=== PATIENT | male | born 1950 | race Caucasian/White ===

== ENCOUNTER 2017-01-11 17:16 | Inpatient (IN) | payer OTHER, MEDICARE ==
[~2017-01-11] VITALS: Ht 177.8 cm; Wt 81.6 kg
[~2017-01-11 17:16] MED LIST: ASPIRIN325 MG PO; BUSPAR10 MG PO; EFFEXOR XR150 MG PO; EFFIENT10 MG PO; FLOMAX0.4 MG PO; PRAVACHOL20 MG PO; PROTONIX20 MG PO; RANEXA500 MG PO
--- NOTE | 2017-01-11 17:33 | NUR ---
TRANSFER FROM ER BY W/C. MARCOSINTED TO ROOM. CALL LIGHT IN REACH. WILL CONT. PLAN OF CARE.
[2017-01-11 17:50] VITALS: BP 101/66; BMI 23.0
[2017-01-11] MEDS ORDERED: FOLIC ACID1 MG PO (17:59)
[2017-01-11] MEDS ORDERED: KLOR-CON 1010 MEQ PO (17:59)
[2017-01-11] MEDS ORDERED: VITAMIN B-121000 MCG PO (18:00)
[2017-01-11] MEDS ORDERED: LIPITOR80 MG PO (18:01)
[2017-01-11] MEDS ORDERED: CORDARONE200 MG PO (18:01)
[2017-01-11] MEDS ORDERED: FERREX 150 PLUS1 CAP PO (18:02)
[2017-01-11] MEDS ORDERED: ACIPHEX20 MG PO (18:04)
[2017-01-11] MEDS ORDERED: BUTRANS1 EAC2 TRANSDERM (18:05)
[2017-01-11] MEDS ORDERED: FLUTICASONE PRO16 GM NASAL (18:06)
[2017-01-11] MEDS ORDERED: NITROSTAT0.4 MG SL (18:07)
[2017-01-11] MEDS ORDERED: ZOFRAN ODT4 MG/UDTAB PO (18:07)
[2017-01-11 18:23] LABS: BASOPHILS 0.2 % (0-2); EOSINOPHILS 0.5 % (0-7); HEMATOCRIT 33.2 % (42.0-54.0); HEMOGLOBIN 10.8 g/dL (13.5-17.5); IMMATURE GRANULOCYTES 0.2 % (0-5); LYMPHOCYTES 18.8 % (15-50); MCH 27.1 pg (26.0-34.0); MCHC 32.5 g/dL (31.0-37.0); MCV 83.4 fL (80.0-100.0); MONOCYTES 5.5 % (2-11); NEUTROPHILS 74.8 % (40-80); PLATELET COUNT 155 10x3/uL (130-400); RBC 3.98 10x6/uL (4.20-6.10); RDW 21.5 % (11.5-14.5); WBC 4.4 10x3/uL (4.8-10.8)
[2017-01-11 18:31] LABS: INR 1.16 (0.85-1.17); PROTIME 14.7 SECONDS (11.6-15.0)
[2017-01-11 18:38] LABS: ALBUMIN 3.5 g/dL (3.4-5.0); ALKALINE PHOSPHATASE 72 U/L (46-116); ALT (SGPT) 48 U/L (10-68); CALC OSMOLALITY 258 mosm/kg (275-300); CALCIUM 9.3 mg/dL (8.5-10.1); CARBON DIOXIDE 26.3 mmol/L (21.0-32.0); CHLORIDE - SERUM 95 mmol/L (98-107); CREATININE - SERUM 1.4 mg/dL (0.6-1.3); GLUCOSE 130 mg/dL (74-106); POTASSIUM - SERUM 3.5 mmol/L (3.5-5.1); PROTEIN - SERUM 8.2 g/dL (6.4-8.2); SODIUM 127 mmol/L (136-145); UREA NITROGEN 19 mg/dL (7-18); eGFR NON AFRICAN AMERICAN 54 mL/min (90-120)
[2017-01-11 18:50] LABS: CKMB 0.9 U/L (0.0-3.6); CREATINE KINASE 30 UL (21-232); MAGNESIUM - SERUM 1.8 mg/dL (1.8-2.4); PRO BNP 869 pg/mL (0-125); THYROID STIMULATING HORMONE 1.62 uIU/mL (0.36-3.74)
[2017-01-11 18:53] LABS: TROPONIN-I < 0.017 ng/mL (0.000-0.060)
--- NOTE | 2017-01-11 19:00 | NUR ---
INITIAL ROUNDS MADE. PT SITTING UP IN BED WATCHING TV. FAMILY IN ROOM. PT DENIES NEEDS OR C/O AT THIS TIME. CALL LIGHT IN REACH. WILL CONT TO MONITOR.
[2017-01-11 20:20] VITALS: BP 128/75
--- NOTE | 2017-01-11 20:30 | NUR ---
PT C/O IV LOCATION, REQUESTING IT BE CHANGED OUT DUE TO PUMP BEEPING. EXPLAINED WHEN FINISHED WITH MED PASS, WOULD ATTEMPT TO RESITE.
[2017-01-11 21:22] LABS: APPEARANCE CLEAR (CLEAR); BACTERIA MODERATE /hpf (NONE SEEN); BILIRUBIN NEGATIVE (NEGATIVE); COLOR BROWN (YELLOW); EPITHELIAL CELLS OCC /hpf (0-5); GLUCOSE NEGATIVE (NEGATIVE); KETONE NEGATIVE (NEGATIVE); LEUKOCYTE ESTERASE TRACE (NEGATIVE); MUCUS >1+ /lpf (NONE SEEN); NITRITE NEGATIVE (NEGATIVE); PROTEIN 2+ mg/dL (NEGATIVE); RED CELLS - URINE NONE SEEN /hpf (0-5); UROBILINOGEN NORMAL (NORMAL); WHITE CELLS - URINE OCC /hpf (0-5); YEAST NONE SEEN /hpf (NONE SEEN)
[2017-01-11 23:52] VITALS: BP 127/77
--- NOTE | 2017-01-11 23:55 | NUR ---
PARKING MANAGER AT BEDSIDE FOR VS. NEEDS ADDRESSED AT THIS TIME. CALL LIGHT IN REACH. WILL CONT TO MONITOR.
--- NOTE | 2017-01-12 02:26 | NUR ---
RESTING WELL WITH EYES CLOSED, CONT TO MONITOR.
[2017-01-12 02:52] LABS: CKMB 0.5 U/L (0.0-3.6); CREATINE KINASE 43 UL (21-232); TROPONIN-I < 0.017 ng/mL (0.000-0.060)
--- NOTE | 2017-01-12 03:31 | NUR ---
ATTEMPT TO RESITE IV X2, PT JERKED ARM ON BOTH ATTEMPTS AND BLEW IV. HE STATES "I CAN'T HELP IT, I JUST DON'T LIKE NEEDLES".
[2017-01-12 03:53] VITALS: BP 130/76
[2017-01-12 07:44] LABS: BASOPHILS 0.3 % (0-2); EOSINOPHILS 0.8 % (0-7); HEMATOCRIT 29.3 % (42.0-54.0); HEMOGLOBIN 9.7 g/dL (13.5-17.5); IMMATURE GRANULOCYTES 0.3 % (0-5); LYMPHOCYTES 27.8 % (15-50); MCH 27.1 pg (26.0-34.0); MCHC 33.1 g/dL (31.0-37.0); MCV 81.8 fL (80.0-100.0); MEAN PLATELET VOLUME 9.7 fL (7.4-10.4); MONOCYTES 7.3 % (2-11); NEUTROPHILS 63.5 % (40-80); PLATELET COUNT 153 10x3/uL (130-400); RBC 3.58 10x6/uL (4.20-6.10); RDW 21.4 % (11.5-14.5)
[2017-01-12 08:12] LABS: CALC OSMOLALITY 265 mosm/kg (275-300); CALCIUM 8.9 mg/dL (8.5-10.1); CARBON DIOXIDE 27.4 mmol/L (21.0-32.0); CHLORIDE - SERUM 97 mmol/L (98-107); CKMB 0.7 U/L (0.0-3.6); CREATINE KINASE 35 UL (21-232); CREATININE - SERUM 1.2 mg/dL (0.6-1.3); GLUCOSE 85 mg/dL (74-106); POTASSIUM - SERUM 3.3 mmol/L (3.5-5.1); SODIUM 132 mmol/L (136-145); UREA NITROGEN 17 mg/dL (7-18); eGFR NON AFRICAN AMERICAN 64 mL/min (90-120)
[2017-01-12 08:14] LABS: TROPONIN-I < 0.017 ng/mL (0.000-0.060)
[2017-01-12 08:41] VITALS: BP 131/71
[2017-01-12 12:46] VITALS: BP 131/81
--- NOTE | 2017-01-12 14:40 | NUR ---
SCDS ON BILAT.
--- NOTE | 2017-01-12 14:41 | NUR ---
UP TO AMBULATE WITH PT ASSIST.
[2017-01-12 16:53] VITALS: BP 127/73
--- NOTE | 2017-01-12 19:38 | NUR ---
RESUMED CARE OF PT, LYING IN BED RESPIRAITONS EVEN AND UNLABORED ON 2LPM VIA NC. 50 SB ON TELEMETRY. LEFT UPPER ARM INFUSING NS @ 100. RIGHT EYE SUTURES. FAMILY AT BEDSIDE. BED ALARM ON. CALL LIGHT IN REACH. SEE NURSE ASSESSMENT.
[2017-01-12 20:00] VITALS: BP 131/72
--- NOTE | 2017-01-12 23:17 | NUR ---
IV RESITED TO LEFT UPPER ARM. 22 GAUGE TIME 1 STICK. LEFT AC REMOVED WITH TIP INTACT, PATENT BUT KEPT OCCLUDING ON PUMP. CALL LIGHT IN REACH. WILL CONTINUE TO MONITOR.
[2017-01-13] VITALS: BP 103/57
--- NOTE | 2017-01-13 03:44 | NUR ---
ANIMAL TRAINER AT BEDSIDE TO OBTAIN VITALS, CALL LIGHT IN REACH. WILL CONTINUE WITH PLAN OF CARE.
[2017-01-13 06:03] LABS: BASOPHILS 0 % (0-2); EOSINOPHILS 1.1 % (0-7); HEMATOCRIT 26.7 % (42.0-54.0); HEMOGLOBIN 8.8 g/dL (13.5-17.5); IMMATURE GRANULOCYTES 0.3 % (0-5); LYMPHOCYTES 32.2 % (15-50); MCH 27.2 pg (26.0-34.0); MCV 82.4 fL (80.0-100.0); MEAN PLATELET VOLUME 9.8 fL (7.4-10.4); MONOCYTES 7.4 % (2-11); PLATELET COUNT 146 10x3/uL (130-400); RBC 3.24 10x6/uL (4.20-6.10); RDW 21.3 % (11.5-14.5); WBC 3.5 10x3/uL (4.8-10.8)
[2017-01-13 06:20] LABS: ANION GAP 8.9 mmol/L (8-16); CALCIUM 8.2 mg/dL (8.5-10.1); CARBON DIOXIDE 27.5 mmol/L (21.0-32.0); CREATININE - SERUM 1.1 mg/dL (0.6-1.3); POTASSIUM - SERUM 3.4 mmol/L (3.5-5.1)
--- NOTE | 2017-01-13 07:25 | NUR ---
PT LAYING TO R SIDE SLEEPING, ARROUSES EASILY. RR EVEN AND UNLABORED NO S/S DISTRESS NOTED. PT DENIES ANY NEEDS WILL CONT TO MONITOR
[2017-01-13 07:29] LABS: MAGNESIUM - SERUM 1.4 mg/dL (1.8-2.4); PHOSPHOROUS 3.2 mg/dL (2.5-4.9)
[2017-01-13 07:55] VITALS: BP 124/55
[2017-01-13 11:35] VITALS: BP 133/82
--- NOTE | 2017-01-13 14:17 | NUR ---
PT UP TO BATHROOM AT THIS TIME. THERAPY HAS CAME BY 3 TIMES AND PT IS REFUSING. PT STATES HE WILL DO PT ONCE HE IS FINISHED IN THE BATHROOM. PT HAS BEEN VERY LETHARGIC BUT ARROUSES EASILY. WILL CONT TO MONITOR
[2017-01-13 15:22] VITALS: BP 136/87
--- NOTE | 2017-01-13 17:54 | NUR ---
PT SITTING UP IN BED DENIES ANY NEEDS OTHER THAN SOME SWEET TEA AND ICE CREAM, GIVEN BOTH. WILL CONT TO MONITOR
--- NOTE | 2017-01-13 18:36 | HP ---
PATIENT: SONALI PEREZ MEDICAL RECORD: [id number] ACCOUNT: [id number] LOCATION:[facility] D.2119 : 50 ADMISSION DATE: 01/11/17 HISTORY AND PHYSICAL EXAMINATION HISTORY OF PRESENT ILLNESS: Mr. Perez is a 67-year-old white male that presents to the office with multiple falls, nausea, vomiting, hypotension, was seen in the Emergency Room at [facility] several times recently for falls, had to have sutures to his face. He has had difficulties with confusion, decreased urine output, clammy skin, diarrhea, headache, heartburn. He has had multiple falls in the last 2 weeks. He has fallen 8 or 9 times per his . He gets up to go the bathroom and has fallen several times. His pressure here in the office today is 74/52, I laid him down and it goes to 80/50. He has a known history of heart disease. He is seen by ____ in the past. Uncertain when his last echo was, states he had a recent ____ which was okay. He is placed in observation for further evaluation, hydration and cardiac evaluation. PAST MEDICAL HISTORY: Significant for known coronary artery disease with previous stents, hypotension, GERD, transient ischemic attacks, allergies, severe depression, BPH, chronic pain, hyperlipidemia, anemia. SURGERIES: Include previous stents blood vessel in neck at age 9, left thumb amputation, left shoulder surgery in 2010. ALLERGIES OR INTOLERANCES: INCLUDE MORPHINE, BUPROPION AND TICLID. CURRENT HOME MEDICATIONS: Include Nitrostat p.r.n., venlafaxine 150 daily, Flonase nasal spray daily, potassium 10 mEq daily, [id number] mg b.i.d., Flomax 0.4 daily, Butrans patch 20 mcg, magic mouthwash, Aciphex 20 daily, folic acid, B12, atorvastatin 80 a day, Ferrex 150 daily, furosemide 20 b.i.d. p.r.n., weight gain and aspirin 325 a day, Ranexa 500 b.i.d. and Effient 1 daily. FAMILY HISTORY: Unremarkable. SOCIAL HISTORY: The patient is . He has been a smoker in the past, but quit in 1987. He is not a drinker. REVIEW OF SYSTEMS: Significant for weakness, syncope, near syncope, dizziness which is related by positioning, chest pain, shortness of breath, nausea, vomiting, decreased urination, increased bruising, laceration right face. PHYSICAL EXAMINATION: VITAL SIGNS: Height 5 feet 10, weight 160, temperature 98.2, BP 74/52, pulse is 63, respirations 12, sats 95% on room air. GENERAL: Cachectic ill-appearing adult bruising to the right face with sutures from recent fall noted on right forehead. HEENT: Pupils are equal, external ocular muscles are intact. TM reveals no hemotympanum Oral cavity is dry. NECK: Soft and supple. HEART: Regular at this time. LUNGS: With adequate breath sounds bilaterally. ABDOMEN: Soft. There is some tenderness in the upper quadrants. EXTREMITIES: Lower extremities reveal no edema. SKIN: Turgor is poor. NEUROLOGIC: Without any gross focal deficits. HISTORY AND PHYSICAL [id number] SONALI PEREZ IMPRESSION: 1. Hypotension. 2. Nausea, vomiting, dehydration. 3. Multiple falls. 4. Chest pain. 5. Coronary artery disease. 6. Depression. 7. Benign prostatic hyperplasia. 8. Chronic pain. PLAN: Observation, IV fluids, cycle enzymes, EKG. Cardiology would consider a cardiology consult with Dr. Ariza who HE has seen in the past, may need another echo will defer to cardiology. IV fluids, hold Butrans, Flomax and BuSpar at this time. Hospitalist service notified of the patient's observation. See orders for rest of plan. TRANSINT:[id number] Voice Confirmation ID: [id number] DOCUMENT ID: [id number] ELI PICKENS DO at 1836 CC: [id number] DICTATION DATE: 01/11/17 1726 SCHOOL PRINCIPAL: 01/11/17 2158 ADM IN [place] [id number] [place] [address]
--- NOTE | 2017-01-13 19:43 | NUR ---
RESUMED CARE OF PT, LYING IN BED WITH EYES CLOSED RESPIRATIONS EVEN AND UNLABORED ON 2LPM VIA NC. LEFT UPPER ARM INFUSING NS @ 100. 58 SB ON TELEMETRY. BED ALARM ON. CALL LIGHT IN REACH. WILL CONTINUE TO MONITOR. SEE NURSE ASSESSMENT.
[2017-01-13 20:00] VITALS: BP 121/78
--- NOTE | 2017-01-14 03:05 | NUR ---
ONCOLOGY RESEARCH RN AT BEDSIDE TO OBTAIN VITALS, CALL LIGHT IN REACH. WILL CONTINUE WITH PLAN OF CARE.
[2017-01-14 04:00] VITALS: BP 119/61
[2017-01-14 06:47] LABS: BASOPHILS 0.3 % (0-2); EOSINOPHILS 0.9 % (0-7); HEMATOCRIT 28.5 % (42.0-54.0); HEMOGLOBIN 9.5 g/dL (13.5-17.5); LYMPHOCYTES 29.6 % (15-50); MCH 27.7 pg (26.0-34.0); MCHC 33.3 g/dL (31.0-37.0); MCV 83.1 fL (80.0-100.0); MEAN PLATELET VOLUME 9.6 fL (7.4-10.4); NEUTROPHILS 62.2 % (40-80); PLATELET COUNT 129 10x3/uL (130-400); RBC 3.43 10x6/uL (4.20-6.10); RDW 21.3 % (11.5-14.5); WBC 3.4 10x3/uL (4.8-10.8)
[2017-01-14 07:30] LABS: ANION GAP 10.5 mmol/L (8-16); CALCIUM 8.3 mg/dL (8.5-10.1); CARBON DIOXIDE 25.2 mmol/L (21.0-32.0); CREATININE - SERUM 1.1 mg/dL (0.6-1.3); MAGNESIUM - SERUM 1.6 mg/dL (1.8-2.4); PHOSPHOROUS 2.9 mg/dL (2.5-4.9); POTASSIUM - SERUM 3.7 mmol/L (3.5-5.1)
[2017-01-14 07:48] VITALS: BP 114/42
[2017-01-14 07:56] LABS: % SATURATION 24 % (15-55); IRON 42 ug/dl (35-150); TOTAL IRON BIND CAPACITY 170 ug/dl (260-445); UNSAT IRON BIND CAPACITY 128 ug/dl (150-375)
--- NOTE | 2017-01-14 09:27 | NUR ---
TELEMETRY SB. RESP UL ON . UP AMBULATING HALLWAY WITH PT ASSIST. WILL CONT. PLAN OF CARE.
[2017-01-14 11:48] VITALS: BP 109/59
[2017-01-14 12:27] VITALS: Ht 177.8 cm; Wt 81.6 kg
--- NOTE | 2017-01-14 13:59 | NUR ---
B/P 103/59 HR 53 LYING. B/P 79/51 HR 54 SITTING. B/P 80/48 HR 56 STANDING.
[2017-01-14 15:51] VITALS: BP 127/71
--- NOTE | 2017-01-14 19:55 | NUR ---
INIITAL ROUNDS COMPLETEDA T 5 HRS. PT DENIED ANY DISCOMFORT. WILL CONTINUE TO MONITOR.
[2017-01-14 20:00] VITALS: BP 137/78
--- NOTE | 2017-01-14 22:46 | NUR ---
PM MEDS GIVNE. PT DENIED ANY DISCOMFORT. WILL CONTINUE TO MONITOR.
[2017-01-15] VITALS: BP 129/69
--- NOTE | 2017-01-15 02:21 | NUR ---
PT RESTING WITH EYES CLOSED. RESP EVEN AND REGULAR. SR UP X2, CALL LIGHT WITHIN REACH.
[2017-01-15 04:00] VITALS: BP 146/68
--- NOTE | 2017-01-15 04:23 | NUR ---
PT RESTING WITH EYES CLOSED. RESP EVEN AND REGULAR. SR UP X2,CALL LIGHT WITHIN REACH.
[2017-01-15 05:51] LABS: BASOPHILS 0.3 % (0-2); EOSINOPHILS 1.2 % (0-7); HEMATOCRIT 27.9 % (42.0-54.0); HEMOGLOBIN 9.2 g/dL (13.5-17.5); LYMPHOCYTES 34.3 % (15-50); MCH 27.1 pg (26.0-34.0); MCV 82.3 fL (80.0-100.0); MEAN PLATELET VOLUME 9.4 fL (7.4-10.4); MONOCYTES 6.5 % (2-11); NEUTROPHILS 57.7 % (40-80); PLATELET COUNT 131 10x3/uL (130-400); RBC 3.39 10x6/uL (4.20-6.10); WBC 3.4 10x3/uL (4.8-10.8)
[2017-01-15 06:02] LABS: ANION GAP 8.7 mmol/L (8-16); CALCIUM 8.5 mg/dL (8.5-10.1); CREATININE - SERUM 1.1 mg/dL (0.6-1.3); POTASSIUM - SERUM 3.7 mmol/L (3.5-5.1)
--- NOTE | 2017-01-15 06:40 | NUR ---
VSS THROUGHOUT NIGHT. SB PER CM. PT DENIED ANY DISCOMFORT. NEEDS MET; WILL CONTINUE TO MONITOR.
[2017-01-15 07:23] LABS: FOLATE (FOLIC ACID) - SERUM 10.1 ng/mL (>3.0)
[2017-01-15 08:37] VITALS: BP 124/64
--- NOTE | 2017-01-15 10:00 | EC ---
PATIENT:SONALI PEREZ DATE OF SERVICE: 01/11/17 SEX: M MEDICAL RECORD: [id number] DATE OF : [birth year] LOCATION:D.M2 D.211 AGE OF PATIENT: 67 ADMISSION DATE: 01/11/17 REFERRING PHYSICIAN: INTERPRETING PHYSICIAN: SHERINE MCWILLIAMS MD ECHOCARDIOGRAM REPORT ECHO CHARGES 5 ECHO LIMITED CLINICAL DIAGNOSIS: HYPOTENSION HX OF CARDIOMYOPATHY ECHOCARDIOGRAPHIC MEASUREMENTS (adult normal given) AC root (d.<3.7cm) LV Septum d (<1.2 cm> Valve Excursion LV Septum (systole) Left Atria (s.<4.0cm> 3.4 LVPW d(<1.2cm) RV (d.<2.3cm) LVPW (sytole) LV diastole(<5.6CM) 4.5 MV E-F(>70mm/sec) 3.6 LV systole LVOT Diameter 1.7 MV exc.(>10mm) Est.ejection fraction (50-75%) Pericardial Effusion N DOPPLER: LVIT A 85.0 E 51.0 LA RVSP LVOT 84 AOP1/2T Asc. Ao 121 RVOT RA PA AV Gradient Peak 5.90 AV Mean 2.73 AV Area 1.7 MV Gradient Peak 4.45 MV Mean 1.13 MV Area COMMENTS: Weapons Officer: Barbara WALTON Visual Developer:10 Dr. Ariza TAPE# PACS DATE OF SERVICE: 01/13/2017 This is a somewhat technically limited study due to the patient's body habitus and apical views only. Grossly, LVH appears to be present. LV internal dimensions appear grossly normal. Difficult to fully assess focal wall motion. RVH present. Estimated EF reduced 35-40%. Aortic valve opens adequately by 2D. Left atrium grossly appears normal. Mitral valve shows no obvious prolapse, no significant MR. Right-sided chamber is grossly normal. No significant TR. TRANSINT:[id number] Voice Confirmation ID: [id number] DOCUMENT ID: [id number] ECHOCARDIOGRAM REPORT [id number] CHRISSONALI Alexandria SHERINE MCWILLIAMS MD at 1000 CC: [id number] DICTATION DATE: 01/13/17 1318 GARMENT TAG STRINGER: 01/13/17 2326 ADM IN [id number] [place] [address]
--- NOTE | 2017-01-15 10:54 | NUR ---
TELEMETRY SB. AMBULATES WITH PT ASSIST.
[2017-01-15 13:03] VITALS: BP 118/49
--- NOTE | 2017-01-15 13:26 | NUR ---
AMBULATES WITH PT. NO C/O DIZZINESS OTED. WILL MONITOR.
[2017-01-15 16:03] VITALS: BP 144/82
[2017-01-15 20:00] VITALS: BP 130/74
[2017-01-16] VITALS: BP 147/85
[2017-01-16 04:00] VITALS: BP 131/77
--- NOTE | 2017-01-16 04:09 | NUR ---
PT RESTING WITH NO DISTRESS. CPOC.
[2017-01-16 06:54] LABS: BASOPHILS 0.3 % (0-2); EOSINOPHILS 1.3 % (0-7); HEMATOCRIT 28.8 % (42.0-54.0); HEMOGLOBIN 9.7 g/dL (13.5-17.5); IMMATURE GRANULOCYTES 0.5 % (0-5); LYMPHOCYTES 32.4 % (15-50); MCH 27.7 pg (26.0-34.0); MCHC 33.7 g/dL (31.0-37.0); MCV 82.3 fL (80.0-100.0); MEAN PLATELET VOLUME 9.6 fL (7.4-10.4); NEUTROPHILS 58.5 % (40-80); PLATELET COUNT 157 10x3/uL (130-400); RDW 21.3 % (11.5-14.5); WBC 3.8 10x3/uL (4.8-10.8)
[2017-01-16 07:12] LABS: ANION GAP 9.4 mmol/L (8-16); CALCIUM 8.5 mg/dL (8.5-10.1); CARBON DIOXIDE 27.9 mmol/L (21.0-32.0); CREATININE - SERUM 1.1 mg/dL (0.6-1.3); POTASSIUM - SERUM 3.3 mmol/L (3.5-5.1)
[2017-01-16 08:00] VITALS: BP 133/83
--- NOTE | 2017-01-16 08:03 | NUR ---
ASSESSMENT DONE, AT SIDE. DENIES NEEDS.
--- NOTE | 2017-01-16 09:27 | NUR ---
RESTS WITH EYES CLOSED. AT BS. CALL LIGHT IN REACH. WILL CONT. PLAN OF CARE.
--- NOTE | 2017-01-16 16:01 | NUR ---
DC GIVEN TO PT AND
--- NOTE | 2017-01-16 16:29 | NUR ---
DC HOME PER PERSONAL CAR
== END 2017-01-16 16:29 | disposition home or self-care (01) | DRG 315 ==
LOC: OBSVTIME → D.M2 17:16 → UNDOADMOB 17:16 → D.M2 17:16 → OBSVTIME 17:16 → D.M2 01-15 14:16
PROVIDERS: Family Medicine; ADMIT Family Medicine
DX: I95.9 Hypotension, unspecified (principal); I42.9 Cardiomyopathy, unspecified; I25.10 Atherosclerotic heart disease of native coronary artery without angina pectoris; E86.0 Dehydration; E78.5 Hyperlipidemia, unspecified; F32.9 Major depressive disorder, single episode, unspecified; N40.0 Benign prostatic hyperplasia without lower urinary tract symptoms; D64.9 Anemia, unspecified; R00.1 Bradycardia, unspecified; K21.9 Gastro-esophageal reflux disease without esophagitis; G89.29 Other chronic pain; Z91.81 History of falling; Z86.73 Personal history of transient ischemic attack (TIA), and cerebral infarction without residual deficits; Z95.5 Presence of coronary angioplasty implant and graft; Z87.891 Personal history of nicotine dependence

== ENCOUNTER 2017-01-25 18:32 | Inpatient (IN) | payer OTHER, MEDICARE ==
[~2017-01-25] VITALS: Ht 177.8 cm; Wt 66.7 kg
--- NOTE | ~2017-01-25 | HP ---
PATIENT: SONALI PEREZ MEDICAL RECORD: [id number] ACCOUNT: [id number] LOCATION:D.MS [id number] : 50 ADMISSION DATE: 01/25/17 HISTORY AND PHYSICAL EXAMINATION HISTORY OF PRESENT ILLNESS: Mr. Perez is a 67-year-old white male that comes into the clinic today for nausea and vomiting, has not kept anything down in several days, has not urinated until this afternoon in the office. For 2 days, he has been taking Zofran without effect. His initial pressure here in the office is 80/62. His urine is very dark and concentrated. On the specimen, he is able to obtain here today. He has lost 5 pounds in the last 5 days. He has lost almost over 25 pounds in the last 6 months. He was hospitalized with similar symptoms a few weeks or so ago, has a known history of cardiac problems, has a cardiomyopathy, but his EF is around 35% and his cardiac symptoms are really unexplained the weight loss in the overall condition of this patient. He again appears dehydrated and he is going to be admitted again for fluids and further evaluation of his weight loss, nausea, vomiting and overall severe decline has been going on for the last several months. PAST MEDICAL HISTORY: Unchanged. It includes known coronary disease with cardiomyopathy, previous stents, hypotension, GERD, transient ischemic attacks, allergies, severe depression, BPH, chronic pain, hyperlipidemia and anemia. He did have a recent positive fit. He has seen Dr. Luna in the past and has had EGD and colonoscopy within the last year. PAST SURGICAL HISTORY: Include previous stents, surgery on a blood vessel in the neck at the age of 9, left ____ amputation, left shoulder surgery. ALLERGIES OR INTOLERANCES: INCLUDE MORPHINE, BUPROPION AND TICLID. MEDICATIONS: He is on some Bactrim-DS 1 p.o. b.i.d., midodrine 5 mg 1/2 tablet q. daily tried a higher dose, but it is lying pressure actually went up, but when he sat up, his systolic dropped back to 80, Zofran, atorvastatin 80 mg a day, Ranexa 500 mg b.i.d., Effient 10 a day, venlafaxine 150 daily, Nitrostat p.r.n. He is on Bactrim for UTI. FAMILY HISTORY: Unchanged. SOCIAL HISTORY: The patient is . He does not smoke or drink. REVIEW OF SYSTEMS: Fatigue, shortness of breath, generalized pain, some chest pain, nausea, vomiting, decreased urine output, poor skin turgor. PHYSICAL EXAMINATION: GENERAL: He appears moderately to severely ill. He is a little tachypneic at this time. He is cachectic in appearance. HEENT: Sclerae nonicteric. NECK: Soft. HEART: Regular. LUNGS: Clear. ABDOMEN: Soft. EXTREMITIES: Lower extremities revealed no edema. SKIN: Turgor is poor. IMPRESSION: Hypotension, dehydration, intractable nausea and vomiting, failure HISTORY AND PHYSICAL [id number] SONALI PEREZ to improve with midodrine, cardiomyopathy, severe depression, hyperlipidemia, coronary artery disease. PLAN: Readmit IV fluids, GI consult. Reason CT of the head was okay. He had a CT of the abdomen, chest and pelvis to rule out occult malignancy. Consult GI. Daniel stafford. See orders for plan. TRANSINT:[id number] Voice Confirmation ID: [id number] DOCUMENT ID: [id number] ELI PICKENS DO CC: [id number] DICTATION DATE: 01/25/171857 APPRENTICE JOCKEY: 01/25/172046 ADM IN [facility] [address] [place] [address]
[~2017-01-25 18:32] MED LIST changes: +ACIPHEX20 MG PO; +BUTRANS1 EAC2 TRANSDERM; +CORDARONE200 MG PO; +FERREX 150 PLUS1 CAP PO; +FLUTICASONE PRO16 GM NASAL; +FOLIC ACID1 MG PO; +KLOR-CON 1010 MEQ PO; +LIPITOR80 MG PO; +NITROSTAT0.4 MG SL; +VITAMIN B-121000 MCG PO; +ZOFRAN ODT4 MG/UDTAB PO
--- NOTE | 2017-01-25 20:00 | NUR ---
DIRECT ADMIT FROM [facility] OFFICE. ALERT AND ORIENTED AND ABLE TO VERBALIZE NEEDS. 20G IV STARTED TO RIGHT FOREARM X 1 ATTEMPT. GOOD BLOOD RETURN. FLUSHES W/O DIFFICULTY. SALINE LOC UNTIL ORDERS COMPLETED BY PHARMACY. PT IS TO GO OFF FLOOR FOR WARRENTED TESTING. PT ORIENTED TO ROOM AND USE OF CALL LIGHT. URINAL PROVIDED. PT DENIES ANY PAIN AT THIS TIME. WILL CONTINUE TO MONITOR. SIDE RAILS ARE UP X 2. BED IS IN LOWEST POSITION. CALL LIGHT IS WITHIN REACH.
--- NOTE | 2017-01-25 20:42 | NUR ---
LAB CALLED TO SAY THAT PT HAS BEEN STUCK BY 5 PHLEBOTOMISTS. THEY HAVE COLLECTED ALL SAMPLES BUT RAN OUT BEFORE CALCIUM WAS RAN. THEY STATED THEY WOULD HAVE THE MILITARY COOK TRY TO COME COLLECT SAMPLE WHEN THEY GOT HERE.
[2017-01-25 20:46] LABS: BASOPHILS 0 % (0-2); EOSINOPHILS 0.2 % (0-7); HEMOGLOBIN 11.7 g/dL (13.5-17.5); IMMATURE GRANULOCYTES 0.2 % (0-5); LYMPHOCYTES 23.3 % (15-50); MCH 27.7 pg (26.0-34.0); MCHC 34.4 g/dL (31.0-37.0); MCV 80.6 fL (80.0-100.0); MEAN PLATELET VOLUME 9.8 fL (7.4-10.4); MONOCYTES 5.4 % (2-11); NEUTROPHILS 70.9 % (40-80); PLATELET COUNT 178 10x3/uL (130-400); RBC 4.22 10x6/uL (4.20-6.10); RDW 21.5 % (11.5-14.5); WBC 4.6 10x3/uL (4.8-10.8)
[2017-01-25 21:54] LABS: ALBUMIN 3.7 g/dL (3.4-5.0); ALKALINE PHOSPHATASE 104 U/L (46-116); ALT (SGPT) 152 U/L (10-68); AMYLASE - SERUM 51 U/L (25-115); BILIRUBIN - TOTAL 0.91 mg/dL (0.2-1.3); CALC OSMOLALITY 257 mosm/kg (275-300); CALCIUM 9.5 mg/dL (8.5-10.1); CARBON DIOXIDE 23.3 mmol/L (21.0-32.0); CHLORIDE - SERUM 93 mmol/L (98-107); CKMB 0.5 U/L (0.0-3.6); CREATINE KINASE 28 UL (21-232); CREATININE - SERUM 1.5 mg/dL (0.6-1.3); GLUCOSE 114 mg/dL (74-106); LIPASE 238 U/L (73-393); MAGNESIUM - SERUM 1.7 mg/dL (1.8-2.4); POTASSIUM - SERUM 3.5 mmol/L (3.5-5.1); PROTEIN - SERUM 8.5 g/dL (6.4-8.2); SODIUM 127 mmol/L (136-145); THYROID STIMULATING HORMONE 1.67 uIU/mL (0.36-3.74); UREA NITROGEN 17 mg/dL (7-18); eGFR NON AFRICAN AMERICAN 49 mL/min (90-120)
[2017-01-25 21:56] LABS: TROPONIN-I < 0.017 ng/mL (0.000-0.060)
--- NOTE | 2017-01-25 22:23 | NUR ---
ADMIT ASSESSMENT COMPLETED. MEDICATION AND FLUIDS HUNG PER ORDER. NO NEEDS ARE VOICED. WILL MONITOR. SIDE RAILS X 2. BED LOW. CALL LIGHT IN REACH.
[2017-01-26 02:12] VITALS: BP 122/70; BMI 22.2
[2017-01-26 04:00] VITALS: BP 120/68
--- NOTE | 2017-01-26 05:19 | NUR ---
URINE SENT TO LAB FOR WARRENTED TEST.
[2017-01-26 05:36] LABS: APPEARANCE CLEAR (CLEAR); BILIRUBIN NEGATIVE (NEGATIVE); COLOR BROWN (YELLOW); GLUCOSE NEGATIVE (NEGATIVE); KETONE NEGATIVE (NEGATIVE); LEUKOCYTE ESTERASE TRACE (NEGATIVE); NITRITE NEGATIVE (NEGATIVE); PROTEIN 1+ mg/dL (NEGATIVE)
[2017-01-26 05:39] LABS: BACTERIA FEW /hpf (NONE SEEN); EPITHELIAL CELLS 0-5 /hpf (0-5); MUCUS <1+ /lpf (NONE SEEN); RED CELLS - URINE 0-5 /hpf (0-5); WHITE CELLS - URINE 0-5 /hpf (0-5)
[2017-01-26 06:33] LABS: CALCIUM 8.6 mg/dL (8.5-10.1); CARBON DIOXIDE 22.1 mmol/L (21.0-32.0); CREATININE - SERUM 1.4 mg/dL (0.6-1.3); POTASSIUM - SERUM 3.1 mmol/L (3.5-5.1)
--- NOTE | 2017-01-26 07:10 | NUR ---
PT REC'D FROM [facility]. RESTING IN BED WATCHING TV. AAOX4. NO COMPLAINTS OF PAIN. PIV TO R FA FREE OF REDNESS AND SWELLING. NO COMPLAINTS OF N/V. APPROXIMATELY 100CC'S OF TEA COLORED URINE IN URINAL ON BST. EMPTIED AND HUNG ON BED RAIL. BRUISE NOTED UNDER R EYE. PT STATES HE GOT IT FROM A RECENT FALL. BED LOW, CALL LIGHT IN REACH, DENIES NEEDS. CPOC.
[2017-01-26 10:05] VITALS: BP 118/69
--- NOTE | 2017-01-26 10:45 | NUR ---
MORNING MEDS PASSED AT THIS TIME. NO COMPLAINTS OF PAIN OR N/V. BED LOW, CALL LIGHT IN REACH, CUP OF ICE AND SODA PROVIDED. CPOC.
[2017-01-26 11:36] VITALS: BP 120/68
--- NOTE | 2017-01-26 15:30 | NUR ---
ONE TIME DOSES OF PROTONIX AND REGLAN PASSED AT THIS TIME. PT STARTED TO HAVE NOSE BLEED. WET WASH CLOTH AND TISSUES PROVIDED. BLEED SUBSIDED WITHIN 1 MINUTES.
[2017-01-26 15:52] VITALS: Ht 177.8 cm; Wt 66.7 kg
[2017-01-26 16:03] VITALS: BP 157/75
--- NOTE | 2017-01-26 18:00 | NUR ---
DENIES NEEDS AT PRESENT . BED LOW CL IN REACH.
[2017-01-26 19:00] VITALS: BP 131/76
--- NOTE | 2017-01-26 20:00 | NUR ---
PT IS RESTING IN BED WITH EYES OPEN. ALERT AND ORIENTED X 3. DENIES ACUTE DISCOMFORT AT THIS TIME. USING URINAL PRN. URINE IS VERY DARK AND CONCENTRATED. PT ENCOURAGED TO DRINK MORE FLUIDS. IV IS INFUSING TO RFA. NO REDNESS OR EDEMA NOTED AT THE INSERTION SITE. PT DENIES ANY N/V. SR'S ARE UP X 2 IN BED. CALL LIGHT AND BEDSIDE TABLE ARE WITHIN EASY REACH.
--- NOTE | 2017-01-26 21:20 | NUR ---
PT IS RESTING QUIETLY IN BED WITH EYES CLOSED. RESPS ARE EVEN AND UNLABORED. NO ACUTE DISTRESS NOTED.
--- NOTE | 2017-01-26 23:19 | NUR ---
RESTING IN BED WITH EYES CLOSED.
--- NOTE | 2017-01-27 00:37 | NUR ---
PT IS RESTING QUIETLY IN BED WITH EYES CLOSED.
--- NOTE | 2017-01-27 01:47 | NUR ---
RN NOTE: PT RESTING ON RIGHT SIDE WITH EYES CLOSED AND UNLABORED BREATHING. IV IN RIGHT FA PATENT WITH NS INFUSING AT 75 ML / HR, AND ZOFRAN AT 4.7 ML / HR. WILL CONTINUE TO MONITOR CLOSLEY FOR NEEDS. CALL LIGHT WITHIN REACH.
[2017-01-27 04:00] VITALS: BP 128/68
--- NOTE | 2017-01-27 04:00 | NUR ---
RESTING QUIETLY IN BED WITH EYES OPEN. USING URINAL PRN. NO NEEDS VOICED.
[2017-01-27 05:52] LABS: BASOPHILS 0 % (0-2); EOSINOPHILS 0.3 % (0-7); HEMATOCRIT 27.5 % (42.0-54.0); HEMOGLOBIN 9.5 g/dL (13.5-17.5); LYMPHOCYTES 26.6 % (15-50); MCH 28.3 pg (26.0-34.0); MCHC 34.5 g/dL (31.0-37.0); MCV 81.8 fL (80.0-100.0); MEAN PLATELET VOLUME 9.8 fL (7.4-10.4); NEUTROPHILS 69.1 % (40-80); PLATELET COUNT 151 10x3/uL (130-400); WBC 3.5 10x3/uL (4.8-10.8)
[2017-01-27 05:53] LABS: RBC 3.36 10x6/uL (4.20-6.10)
--- NOTE | 2017-01-27 06:00 | NUR ---
PT IS RESTING IN BED WITH EYES CLOSED. NO ACUTE DISTRESS NOTED.
[2017-01-27 06:03] LABS: INR 1.35 (0.85-1.17); PROTIME 16.6 SECONDS (11.6-15.0)
[2017-01-27 06:23] LABS: % SATURATION 53 % (15-55); IRON 92 ug/dl (35-150); TOTAL IRON BIND CAPACITY 171 ug/dl (260-445); UNSAT IRON BIND CAPACITY 79 ug/dl (150-375)
[2017-01-27 06:34] LABS: ANION GAP 12.1 mmol/L (8-16); BILIRUBIN - DIRECT 0.26 mg/dL (0.00-0.30); BILIRUBIN - INDIRECT 0.64 mg/dL (0.00-1.00); BILIRUBIN - TOTAL 0.9 mg/dL (0.2-1.3); CALCIUM 8.3 mg/dL (8.5-10.1); CARBON DIOXIDE 22.1 mmol/L (21.0-32.0); CREATININE - SERUM 1.2 mg/dL (0.6-1.3); MAGNESIUM - SERUM 1.5 mg/dL (1.8-2.4); PHOSPHOROUS 2.7 mg/dL (2.5-4.9); POTASSIUM - SERUM 3.2 mmol/L (3.5-5.1); PROTEIN - SERUM 6.8 g/dL (6.4-8.2)
--- NOTE | 2017-01-27 07:30 | NUR ---
AWAKE AND ALERT. ORIENTED X3. C/O SOME GENERALIZED PAIN THIS AM. WILL MONITOR. LUNGS ARE CLEAR BILATERALLY, NO COUGH NOTED. SKIN IS INTACT WITHOUT REDNESS ALTHOUGH SEVERAL AREAS OF SCABS AND SORES NOTED. IV TO RIGHT FOREARM IS PATENT WITHOUT REDNESS AT INSERTION SITE. DENIES NEEDS.
[2017-01-27 08:42] VITALS: BP 138/85
--- NOTE | 2017-01-27 10:51 | NUR ---
CONTINUES TO C/O PAIN IN CHEST AREA. OFF UNIT VIA WC FOR TEST. AT BEDSIDE.
--- NOTE | 2017-01-27 11:30 | NUR ---
RETURNED FROM PROCEDURE. A/O X3. UP TO BR PER SELF WITH NOTHING BUT WATERY RESULTS. WILL MONITOR.
--- NOTE | 2017-01-27 12:15 | NUR ---
LUNCH SERVED IN ROOM. ATE ONLY AFEW BITES PER . DIDN'T WANT ANY MORE.
--- NOTE | 2017-01-27 15:29 | NUR ---
RESTING QUIETLY WITH EYES CLOSED. DENIES NEEDS.
[2017-01-27 15:45] VITALS: BP 156/60
--- NOTE | 2017-01-27 16:25 | NUR ---
Patient Name: SONALI PEREZ Admission Status: Elective Accout number: [id number] Admission Date: 01-25-2017 : 1950 Admission Diagnosis:NAUSEA WITH VOMITING, UNSPECIFIED Attending: RADHA Current LOS: 2 Anticipated DC Date: 01-31-2017 Planned Disposition: Home Primary Insurance: [employer] PPO Discharge Planning Comments: CM MET WITH PATIENT AND (BERNICE) REGARDING D/C NEEDS AND PLANS. PATIENT LIVES WITH HIS AND SHE WILL DRIVE HIM HOME AT DISCHARGE. PATIENT HAS A RAMP TO ENTER HOME AND 1 STEP INSIDE HOME. PATIENT IS INDEPENDENT WITH HIS CARE AND HAS A WALKER AT HOME. PATIENTS ASKED IF WE COULD TRY AND GET A WHEELCHAIR AT DISCHARGE. PATIENTS PCP IS DR. PICKENS AND PHARMACY IS [facility] [place]. PATIENT DOES NOT WANT HOME HEALTH. CM WILL CONTINUE TO FOLLOW PATIENT WITH D/C NEEDS AND PLANS. PCP DR. CELIO [facility] [place]- [phone] [facility] () [phone] Entry Driver Operator: Macie Skaggs Is the patient Alert and Oriented? Yes 0 * How many steps to enter\exit or inside your home? RAMP 0 * PCP DR. PICKENS 0 * Pharmacy [facility] [place] 0 * Preadmission Environment Home with Family 0 * ADLs Independent 0 * Equipment Walker 0 * List name and contact numbers for known caregivers / representatives who currently or will assist patient after discharge: [facility] () [phone] 0 * Community resources currently utilized None 0 * Additional services required to return to the preadmission environment? Yes 0 * Can the patient safely return to the preadmission environment? Yes 0 * Has this patient been hospitalized within the prior 30 days at any hospital? No 0
--- NOTE | 2017-01-27 18:18 | CN ---
PATIENT NAME:SONALI PEREZ MEDICAL RECORD: [id number] : 50 LOCATION:D.MS [facility]2237 ADMIT DATE: 01/25/17 ACCOUNT: [id number] CONSULTING PHYSICIAN: DEDE ROGER MD REFERRING PHYSICIAN: DIANA MARADIAGA MD DATE OF CONSULTATION: 01/26/2017 Gastrointestinal Consultation REFERRING PHYSICIAN: Robe Pickens D.O. HISTORY OF PRESENT ILLNESS: The patient is a 67-year-old white male with a history of known coronary artery disease with CHF, COPD, as well as significant reflux disease who basically was admitted with persistent nausea and vomiting, weight loss over the past few weeks. On chart review, he has had several upper endoscopies for off and on nausea and vomiting. He had one in 2010, 2012, and last one was in July of 2016. That one revealed a moderate sized hiatal hernia and grade III esophagitis. Biopsy negative for H. pylori. He has always been told to be on twice daily Protonix and once or twice daily and Reglan. It is unclear of how compliant he is on taking his meds. He also underwent a screening colonoscopy in October 2013. That exam revealed 3 polyps, which were removed. One of these was a moderate sized polyp in the mid ascending colon, and 2 of them were diminutive in the rectum. He also has small internal hemorrhoids and a few scattered sigmoid diverticula. He is actually due for surveillance colonoscopy sometime this year. He has also been told he might need to undergo a Sammy fundoplication hiatal hernia repair for severe reflux disease and hiatal hernia. On admission, he had a CT of the chest, abdomen and pelvis. The main finding was that of emphysema, moderate sized hiatal hernia, coronary artery disease and gaseous distention of the colon from the distal ascending to the splenic flexure area, felt to be due to an ileus. ALLERGIES: MORPHINE, TICLID, BUPROPION. PAST MEDICAL HISTORY: As above. He has had several coronary artery stents. He has probably had problems with TIAs, depression, chronic pain syndrome, BPH, hyperlipidemia, anemia. PAST SURGICAL HISTORY: Remarkable for left shoulder surgery and multiple stents. SOCIAL HISTORY: The patient is nonsmoker, drinker at present. HOME MEDICATIONS: Include Bactrim-DS, midodrine, atorvastatin, Ranexa, Effient, Zofran, venlafaxine and nitroglycerin p.r.n. He does not appear to be taking his PPI or Reglan as directed. REVIEW OF SYSTEMS: Noncontributory other than in the HPI. PHYSICAL EXAMINATION: CONSULT REPORT [id number] SONALI PEREZ GENERAL: Reveals an ill kempt, elderly male, somewhat cachectic, in mild distress. VITAL SIGNS: Stable. He is afebrile. CHEST: Clear. HEART: Regular rate and rhythm. ABDOMEN: Soft, nontender. EXTREMITIES: No edema. LABORATORY DATA: Reveals a white count of 6000, hematocrit 34, MCV of 80, platelet count of 178,000. Electrolytes reveal a sodium of 125, potassium 3.1, BUN 16, creatinine 1.4, total bilirubin 0.9, AST 124, ALT 152, alkaline phosphatase 104, albumin 3.7. Amylase and lipase are normal. TSH 1.67. UA is essentially negative. CT of the chest, abdomen and pelvis is as above. His abdominal series revealed similar findings. IMPRESSION: 1. Nausea, vomiting, weight loss and progressive decline of unclear etiology, but obviously worse for an underlying malignancy. However, no mass was seen on recent CT of the abdomen, pelvis or chest. He does what looks like a colonic ileus. Cannot totally rule out obstruction there, but it would be fairly unlikely in light of his essentially normal colonoscopy 3 years ago. 2. Chronic obstructive pulmonary disease. 3. Coronary artery disease. 4. Known severe reflux disease with documented grade III esophagitis and moderate sized hiatal hernia. 5. History of colon polyps actually due for surveillance colonoscopy. 6. Possible noncompliance with taking his medications. 7. Mildly elevated transaminases, possibly due to a statin. RECOMMENDATION: 1. Restart high dose PPI and low dose Reglan for now. 2. Gastrografin enema to rule out any type of colonic obstruction. 3. Okay with liquid diet for now. 4. Recheck his liver enzymes and keep him off any statin. We will go ahead and check some liver lab as well. TRANSINT:[id number] Voice Confirmation ID: [id number] DOCUMENT ID: [id number] DEDE ROGER MD at 3078 CC: ROBE PICKENS DO [id number] DICTATION DATE: 01/26/17 1530 DRUPAL PHP DEVELOPER: 01/26/173 ADM IN [facility] [address] [place] [address]
--- NOTE | 2017-01-27 19:40 | NUR ---
REPORTS FEELING MUCH BETTER AFTER HYDROCODONE. DENIES NEEDS. NO CHANGES NOTED.
[2017-01-27 20:00] VITALS: BP 139/67
[2017-01-28 04:00] VITALS: BP 138/82
[2017-01-28 06:26] LABS: BASOPHILS 0 % (0-2); EOSINOPHILS 0.7 % (0-7); HEMATOCRIT 27.7 % (42.0-54.0); HEMOGLOBIN 9.5 g/dL (13.5-17.5); LYMPHOCYTES 26.6 % (15-50); MCH 28.1 pg (26.0-34.0); MCHC 34.3 g/dL (31.0-37.0); MEAN PLATELET VOLUME 9.4 fL (7.4-10.4); MONOCYTES 4.7 % (2-11); PLATELET COUNT 128 10x3/uL (130-400); RBC 3.38 10x6/uL (4.20-6.10); RDW 21.8 % (11.5-14.5); WBC 2.8 10x3/uL (4.8-10.8)
[2017-01-28 06:43] LABS: ALBUMIN 2.8 g/dL (3.4-5.0); ANION GAP 11.3 mmol/L (8-16); BILIRUBIN - TOTAL 0.86 mg/dL (0.2-1.3); CALCIUM 8.1 mg/dL (8.5-10.1); CARBON DIOXIDE 22.9 mmol/L (21.0-32.0); CREATININE - SERUM 1.1 mg/dL (0.6-1.3); POTASSIUM - SERUM 3.2 mmol/L (3.5-5.1); PROTEIN - SERUM 6.6 g/dL (6.4-8.2)
--- NOTE | 2017-01-28 07:30 | NUR ---
AWAKE AND ALERT. ORIENTED X3. NO C/O AT THIS TIME. LUNGS ARE CLEAR BILATERALLY, NO COUGH NOTED. SKIN IS INTACT WITHOUT REDNESS, ALTHOUGH MULTIPLE AREAS OF SMALL SCABS AND SORES AND BRUISED IN VARIOUS STAGES OF HEALING. IV TO RIGHT FOREARM IS PATENT WITHOUT REDNESS AT INSERTION SITE. DENIES NEEDS. AT BEDSIDE.
[2017-01-28 08:16] VITALS: BP 139/83
[2017-01-28 09:16] LABS: ALPHA FETOPROTEIN -(TUMOR MRK) 2.6 ng/mL (0.0-8.3)
[2017-01-28 10:19] LABS: HEPATITIS C ANTIBODY <0.1 (0.0-0.9)
--- NOTE | 2017-01-28 10:31 | NUR ---
TOOK AM MEDS WITHOUT DIFFICULTY. ULTRA SOUND IN PROGRESS. DENIES NEEDS. C/O PAIN TO LEFT SIDE BUT PIPPIDA SCHEDULED FOR TODAY SO NO NARCOTICS AT THIS TIME.
[2017-01-28 11:17] LABS: ANA REFLEX - DIRECT Negative (Negative)
[2017-01-28 12:11] VITALS: BP 128/72
--- NOTE | 2017-01-28 14:59 | NUR ---
UP TO SHOWER WITH 'S ASSISTANCE. OFF UNIT VIA FOR PIPPIDA SCAN.
--- NOTE | 2017-01-28 15:32 | NUR ---
NUTRITION MONITORING & EVAL CHART REVIEWED. PT OOR. FULL LIQUID DIET WITH POOR PO INTAKE AT THIS TIME. WILL CONTINUE TO PROVIDE DIET, MONITOR INTAKE. RD FOLLOWING
--- NOTE | 2017-01-28 16:45 | NUR ---
RETURNED FROM SCAN. IN ROOM. REFUSED FOOD AT THIS TIME. UP TO BR WITH 'S ASSISTANCE. NO CHANGES NOTED AT THIS TIME.
--- NOTE | 2017-01-28 19:50 | NUR ---
PT SITTING UP IN BED, ASSESSMENT COMPLETED, NO ACUTE DISTRESS NOTED, DENIES PAIN, SNACK PROVIDED PER REQUEST, SR'S UP, CL IN REACH, ALARM ON, WILL MONITOR
[2017-01-28 20:00] VITALS: BP 121/76
[2017-01-29] VITALS: BP 141/85
--- NOTE | 2017-01-29 03:28 | NUR ---
1930)REC'D IN BED LYING ON RT. SIDE EYES CLOSED RESP. DEEP AND EVEN. WILL CONTINUE TO MONITOR FOR ANY CHGES. AND FOLLOW CURRENT PLAN OF CARE.
--- NOTE | 2017-01-29 03:58 | NUR ---
PT IS ASLEEP AND THE ROOM IS VERY WARM. THE BED ALARM IS IN PLACE. THE BED IS LOW, RAILS UP X'S 2 WITH THE CALL LIGHT AT HAND. EASY RESPIRATIONS AND NO DISTRESS NOTED.
[2017-01-29 05:09] VITALS: BP 130/89
[2017-01-29 06:04] LABS: BASOPHILS 0 % (0-2); EOSINOPHILS 0.3 % (0-7); HEMATOCRIT 31.5 % (42.0-54.0); HEMOGLOBIN 10.8 g/dL (13.5-17.5); IMMATURE GRANULOCYTES 0.3 % (0-5); LYMPHOCYTES 27.9 % (15-50); MCH 28.1 pg (26.0-34.0); MCHC 34.3 g/dL (31.0-37.0); MCV 81.8 fL (80.0-100.0); MEAN PLATELET VOLUME 9.7 fL (7.4-10.4); MONOCYTES 5.3 % (2-11); NEUTROPHILS 66.2 % (40-80); PLATELET COUNT 136 10x3/uL (130-400); RBC 3.85 10x6/uL (4.20-6.10); RDW 21.8 % (11.5-14.5)
[2017-01-29 06:21] LABS: ALBUMIN 3.2 g/dL (3.4-5.0); ANION GAP 13.3 mmol/L (8-16); BILIRUBIN - TOTAL 0.75 mg/dL (0.2-1.3); CALCIUM 8.6 mg/dL (8.5-10.1); CARBON DIOXIDE 22.8 mmol/L (21.0-32.0); CREATININE - SERUM 1.2 mg/dL (0.6-1.3); POTASSIUM - SERUM 3.1 mmol/L (3.5-5.1); PROTEIN - SERUM 7.4 g/dL (6.4-8.2)
--- NOTE | 2017-01-29 07:47 | NUR ---
PRN NORCO ADMINISTERED FOR BACK PAIN AT THIS TIME. AT BEDSIDE. YENIFER MAT ALARM ON AND IN WORKING ORDER. URINAL IN USE FOR VOIDING. PT SELF POSITIONS SELF IN BED. CALL LIGHT IN REACH, WILL CONTINUE WITH PLAN OF CARE.
[2017-01-29 09:14] VITALS: BP 114/81
--- NOTE | 2017-01-29 09:27 | NUR ---
SCHEDULED MEDICATIONS ADMINISTERED AT THIS TIME. ASSESSMENT PERFORMED PER FLOWSHEET. FAMILY REMAINS AT BEDSIDE. CALL LIGHT IN REACH, WILL CONTINUE WITH PLAN OF CARE.
--- NOTE | 2017-01-29 11:05 | NUR ---
SLEEPING AT THIS TIME WITH RESPIRATIONS EVEN AND NON LABORED. FAMILY REMAINS AT BEDSIDE. CALL LIGHT IN REACH, WILL CONTINUE WITH PLAN OF CARE.
[2017-01-29 12:20] VITALS: BP 139/85
[2017-01-29 15:58] VITALS: BP 142/85
--- NOTE | 2017-01-29 19:50 | NUR ---
SITTING UP IN BED WATCHING TV, ASSESSMENT COMPLETED, NO DISTRESS NOTED, DENIES PAIN, SNACK PROVIDED PER REQUEST,SR'S UP, ALARM ON, CL IN REACH, WILL MONITOR
--- NOTE | 2017-01-29 21:45 | NUR ---
DENIES PAIN OR NEEDS, SAFETY MEASURES IN PLACE, CL IN REACH
[2017-01-29 23:14] VITALS: BP 141/72
--- NOTE | 2017-01-29 23:38 | NUR ---
RESTING WITH EYES CLOSED, NO DISTRESS NOTED, FALL PRECAUTIONS IN PLACE, CL IN REACH, WILL CONTINUE TO MONITOR
[2017-01-30 04:00] VITALS: BP 124/63
[2017-01-30 07:07] LABS: HEMATOCRIT 27.4 % (42.0-54.0); HEMOGLOBIN 9.2 g/dL (13.5-17.5); MCHC 33.6 g/dL (31.0-37.0); MCV 83.3 fL (80.0-100.0); MEAN PLATELET VOLUME 9.6 fL (7.4-10.4); RBC 3.29 10x6/uL (4.20-6.10); RDW 22.2 % (11.5-14.5)
[2017-01-30 07:11] LABS: PLATELET COUNT 105 10x3/uL (130-400); WBC 2.1 10x3/uL (4.8-10.8)
[2017-01-30 07:24] LABS: ALBUMIN 2.7 g/dL (3.4-5.0); ANION GAP 9.7 mmol/L (8-16); BILIRUBIN - TOTAL 0.53 mg/dL (0.2-1.3); CALCIUM 8.5 mg/dL (8.5-10.1); CARBON DIOXIDE 22.9 mmol/L (21.0-32.0); CREATININE - SERUM 1.1 mg/dL (0.6-1.3); POTASSIUM - SERUM 3.6 mmol/L (3.5-5.1); PROTEIN - SERUM 6.4 g/dL (6.4-8.2)
[2017-01-30 07:44] LABS: EOSINOPHILS 2 % (0-7); LYMPHOCYTES 54 % (15-50); MONOCYTES 2 % (2-11); NEUTROPHILS 42 % (40-80)
[2017-01-30 07:45] LABS: ANISOCYTOSIS OCC; PLATELET ESTIMATE DECREASED
--- NOTE | 2017-01-30 08:07 | NUR ---
SCHEDULED MEDICATIONS ADMINISTERED AT THIS TIME. PRN NORCO ADMINISTERED FOR PAIN. ASSESSMENT PERFORMED PER FLOWSHEET. POSITIONS SELF IN BED INDEPENDENTLY. CALL LIGHT IN REACH, DENIES NEEDS AT THIS TIME. WILL CONTINUE WITH PLAN OF CARE.
[2017-01-30 09:07] LABS: SMOOTH MUSCLE ABS (ACTIN) 17 Units (0-19)
[2017-01-30 09:35] VITALS: BP 126/64
--- NOTE | 2017-01-30 10:34 | NUR ---
SCHEDULED PROBIOTIC ADMINISTERED AT THIS TIME. DENIES NEEDS AT PRESENT TIME. AT BEDSIDE. WILL CONTINUE WITH PLAN OF CARE.
[2017-01-30 12:00] VITALS: BP 113/58; BP 79/55
--- NOTE | 2017-01-30 12:05 | NUR ---
PROVIDED PT WITH NEW URINAL FOR URINE SAMPLE AT THIS TIME. AT BEDSIDE. CALL LIGHT IN REACH, WILL CONTINUE WITH PLAN OF CARE.
[2017-01-30 13:16] LABS: APPEARANCE CLEAR (CLEAR); BILIRUBIN NEGATIVE (NEGATIVE); COLOR YELLOW (YELLOW); GLUCOSE NEGATIVE (NEGATIVE); KETONE NEGATIVE (NEGATIVE); LEUKOCYTE ESTERASE NEGATIVE (NEGATIVE); NITRITE NEGATIVE (NEGATIVE); PH 5.5 (5.0-6.0); PROTEIN NEGATIVE (NEGATIVE); SPECIFIC GRAVITY 1.005 (1.005-1.020); UROBILINOGEN NORMAL (NORMAL)
--- NOTE | 2017-01-30 19:30 | NUR ---
PT UP TO RESTROOM, ASSISTED BACK TO BED, INSTRUCTED TO CALL FOR ASSISTANCE TO AVOID FALLS, VOICED UNDERSTANDING, ASSESSMENT COMPELTED, NO DISTRESS NOTED, SR'S UP, CL IN REACH, WILL MONITOR
[2017-01-30 20:00] VITALS: BP 139/87
--- NOTE | 2017-01-30 20:58 | NUR ---
MEDS GIVEN PER MAR, EFREN WELL, DENIES PAIN OR NEEDS, SR'S UP, CL IN REACH
--- NOTE | 2017-01-30 23:20 | NUR ---
RESTING WITH EYES CLOSED, RESP WITH EASE, NO DISTRESS NOTED, FALL PRECAUTIONS IN PLACE, CL IN REACH
[2017-01-31] VITALS (15 sets, daily range): BP systolic 77–152; BP diastolic 53–91
--- NOTE | 2017-01-31 01:30 | NUR ---
BLOOD STARTED INFUSING @ 75ML/HR, INSTRUCTED ON SS OF RX , DENIES ANY ITCHING, PAIN, SOB OR ANY OTHER UNUSUAL SYPMTOMS, VSS, WILL MONITOR
[2017-01-31 06:53] LABS: BASOPHILS 0.1 % (0-2); EOSINOPHILS 0.3 % (0-7); HEMATOCRIT 31.6 % (42.0-54.0); HEMOGLOBIN 10.7 g/dL (13.5-17.5); IMMATURE GRANULOCYTES 1.9 % (0-5); MCH 28.3 pg (26.0-34.0); MCHC 33.9 g/dL (31.0-37.0); MCV 83.6 fL (80.0-100.0); MEAN PLATELET VOLUME 9.5 fL (7.4-10.4); MONOCYTES 5.1 % (2-11); NEUTROPHILS 77.6 % (40-80); PLATELET COUNT 87 10x3/uL (130-400); RBC 3.78 10x6/uL (4.20-6.10); RDW 21.3 % (11.5-14.5); WBC 9.8 10x3/uL (4.8-10.8)
[2017-01-31 07:11] LABS: ALBUMIN 3.1 g/dL (3.4-5.0); ALKALINE PHOSPHATASE 88 U/L (46-116); ALT (SGPT) 51 U/L (10-68); BILIRUBIN - TOTAL 0.91 mg/dL (0.2-1.3); CALC OSMOLALITY 255 mosm/kg (275-300); CALCIUM 8.5 mg/dL (8.5-10.1); CARBON DIOXIDE 22.7 mmol/L (21.0-32.0); CHLORIDE - SERUM 97 mmol/L (98-107); GLUCOSE 106 mg/dL (74-106); POTASSIUM - SERUM 3.3 mmol/L (3.5-5.1); PROTEIN - SERUM 6.8 g/dL (6.4-8.2); SODIUM 129 mmol/L (136-145); UREA NITROGEN 4 mg/dL (7-18); eGFR NON AFRICAN AMERICAN 79 mL/min (90-120)
--- NOTE | 2017-01-31 08:14 | NUR ---
AWAKE AND ALERT. ORIENTED X3. NO C/O AT THIS TIME. LUNGS ARE CLEAR BILATERALLY, OCCASSIONAL DRY COUGH NOTED. SKIN IS INTACT WITHOUT REDNESS WITH MULTIPLE AREAS OF BRUISING NOTED. IV TO LEFT FOREARM IS PATNET WITHOUT REDNESS AT INSERTION SITE. DENIES NEEDS. URINAL HAD CLEAR YELLOW URINE IN IT.
--- NOTE | 2017-01-31 10:00 | NUR ---
RESTING QUIETLY IN BED. NO C/O VOICED. DENIES NEEDS.
[2017-01-31 10:27] LABS: APTT 28.4 SECONDS (22.8-39.4); INR 1.11 (0.85-1.17); PROTIME 14.2 SECONDS (11.6-15.0)
[2017-01-31 10:28] LABS: D-DIMER-QUANTITATIVE 0.68 ug/mLFEU (0.20-0.54)
--- NOTE | 2017-01-31 16:02 | NUR ---
Rehab Prescreening Consult recieved and the chart has been reviewed. He is [employer] and will require a preauth. An OT eval will be required prior to submitting to the insurance for approval. He has been ambulating 250 ft with PT which may be considered to high level for the insurance to approve IRF. Isa Bridges RN Clinical Liaison, rehab
--- NOTE | 2017-01-31 19:50 | NUR ---
HERE AND HAS MEDICAL POA AND SIGNED CONSENTS FOR AM SURGERY. PATIENT WAS IN AGREEMENT WITH THIS VERBALLY, NO CHANGES NOTED. DENIES NEEDS.
--- NOTE | 2017-01-31 23:49 | NUR ---
REC'D PATIENT SITTING UP IN BED. ALERT AND ORIENTED X4. DENIED PAIN AT THIS TIME. DENIED FURTHER NEEDS AT THIS TIME. INSTRUCTED TO CALL IF NEEDED ANYTHING. VERBALIZED UNDERSTANDING. IS AT BEDSIDE. IS TO HAVE A [place] IN THE AM CONSENT ARE SIGNED AND IN THE CHART. WILL ADMIN PM/AM MEDS PRESCRIBED. WILL CONT TO MONITOR. BED LOW, LOCKED, CALL LIGHT IN REACH.
[2017-02-01] VITALS (13 sets, daily range): BP systolic 62–153; BP diastolic 41–90
[2017-02-01 05:03] LABS: BASOPHILS 0.1 % (0-2); EOSINOPHILS 0.2 % (0-7); HEMATOCRIT 31.9 % (42.0-54.0); HEMOGLOBIN 10.9 g/dL (13.5-17.5); IMMATURE GRANULOCYTES 2.5 % (0-5); LYMPHOCYTES 14.1 % (15-50); MCH 28.8 pg (26.0-34.0); MCHC 34.2 g/dL (31.0-37.0); MCV 84.4 fL (80.0-100.0); MEAN PLATELET VOLUME 9.9 fL (7.4-10.4); MONOCYTES 6.1 % (2-11); PLATELET COUNT 90 10x3/uL (130-400); RBC 3.78 10x6/uL (4.20-6.10); RDW 21.3 % (11.5-14.5)
[2017-02-01 05:04] LABS: WBC 12.6 10x3/uL (4.8-10.8)
--- NOTE | 2017-02-01 05:28 | NUR ---
PATIENT IS AWAKE LYING IN BED. NO DISTRESS NOTED. DENIES PAIN AT THIS TIME. INSTRUCTED TO CALL IF NEEDED ANYTHING. BED LOW, LOCKED, CALL LIGHT IN REACH.
[2017-02-01 05:33] LABS: ALKALINE PHOSPHATASE 83 U/L (46-116); ALT (SGPT) 44 U/L (10-68); CALC OSMOLALITY 261 mosm/kg (275-300); CALCIUM 8.5 mg/dL (8.5-10.1); CARBON DIOXIDE 24.9 mmol/L (21.0-32.0); CHLORIDE - SERUM 100 mmol/L (98-107); GLUCOSE 84 mg/dL (74-106); POTASSIUM - SERUM 3.2 mmol/L (3.5-5.1); PROTEIN - SERUM 7.1 g/dL (6.4-8.2); SODIUM 133 mmol/L (136-145); UREA NITROGEN 3 mg/dL (7-18); eGFR NON AFRICAN AMERICAN 79 mL/min (90-120)
--- NOTE | 2017-02-01 08:22 | NUR ---
PT NPO FOR SURGERY TODAY. PERMITS SIGNED AND ON CHART. SURGICAL BATH GIVEN EARLY AM. NO COMPLAINTS OF PAIN AT PRESENT. BED ALARM ON AND ACTIVE. MONITOR SHOWS SR. CALL LIGHT IN REACH
--- NOTE | 2017-02-01 14:29 | NUR ---
RETURN FROM SURG. VS 97.9 91 16 122/80 RA 98%. IV TO LEFT FOREARM. CALL LIGHT IN REACH. YENIFER MAT ON BED AND ACTIVE.
--- NOTE | 2017-02-01 16:32 | NUR ---
CM REASSESSMENT NOTE: CM SPOKE WITH (BERNICE) AND PATIENT REGARDING HOME HEALTH. PATIENTS STATED SHE WOULD DO HOME HEALTH BUT NOT RESIDENTIAL. CHOSE [facility] AND THEN [facility] IF [facility] COULD NOT TAKE PATIENT. PATIENTS SIGNED THE [facility] FORM. CM WILL CONTINUE TO FOLLOW PATIENT WITH D/C NEEDS AND PLANS.
--- NOTE | 2017-02-01 16:48 | NUR ---
CM REASSESSMENT NOTE: [facility], AND [facility] DID NOT ACCEPT PATIENTS INSURANCE SO CHOSE [facility]. CM CALLED [facility] AND [facility] ([facility]) STATED SHE THOUGHT THEY ACCEPTED THAT INSURANCE AND WOULD LET ME KNOW IN THE AM. CM WILL CONTINUE TO FOLLOW PATIENT WITH D/C NEEDS AND PLANS.
--- NOTE | 2017-02-01 18:04 | NUR ---
PT UNABLE TO VOID X 3 ATTEMPTS POST SURGERY-PT DID NOT RETURN TILL 1415. YENIFER MAT ALARM ON AND ACTIVATED. NO COMPLAINTS OF PAIN THO. BANDAIDS X 4 NOTED. CALL LIGHT IN REACH
--- NOTE | 2017-02-01 23:35 | NUR ---
PT UNABLE TO URINATE SINCE SURGERY. PT BLADDER SCANNED REVEALED 750 ML. PT IN OUT BAIN VOIDED 600 ML. WCTM.
[2017-02-02] VITALS: BP 140/82
[2017-02-02 04:00] VITALS: BP 170/98
[2017-02-02 05:18] LABS: BASOPHILS 0.1 % (0-2); EOSINOPHILS 0 % (0-7); HEMATOCRIT 31.5 % (42.0-54.0); HEMOGLOBIN 10.8 g/dL (13.5-17.5); IMMATURE GRANULOCYTES 0.2 % (0-5); LYMPHOCYTES 9.4 % (15-50); MCHC 34.3 g/dL (31.0-37.0); MCV 84.5 fL (80.0-100.0); MEAN PLATELET VOLUME 9.8 fL (7.4-10.4); MONOCYTES 5.7 % (2-11); NEUTROPHILS 84.6 % (40-80); PLATELET COUNT 80 10x3/uL (130-400); RBC 3.73 10x6/uL (4.20-6.10); RDW 21.7 % (11.5-14.5); WBC 11.3 10x3/uL (4.8-10.8)
--- NOTE | 2017-02-02 05:43 | NUR ---
PT STILL UNABLE TO URINATE. BLADDER SCANNER REVEALED 625ML. IN AND OUT CATH RESULTED 550MLS.
--- NOTE | 2017-02-02 05:59 | NUR ---
PT REQ AND REC'D PRN PAIN MEDICATION AT THIS TIME.
[2017-02-02 06:24] LABS: ALBUMIN 3.2 g/dL (3.4-5.0); ALKALINE PHOSPHATASE 92 U/L (46-116); CALCIUM 8.1 mg/dL (8.5-10.1); CARBON DIOXIDE 24.1 mmol/L (21.0-32.0); CHLORIDE - SERUM 101 mmol/L (98-107); GLUCOSE 100 mg/dL (74-106); POTASSIUM - SERUM 3.5 mmol/L (3.5-5.1); PROTEIN - SERUM 7.4 g/dL (6.4-8.2); SODIUM 133 mmol/L (136-145); eGFR NON AFRICAN AMERICAN 79 mL/min (90-120)
[2017-02-02 06:28] LABS: ALT (SGPT) 85 U/L (10-68); CALC OSMOLALITY 262 mosm/kg (275-300); UREA NITROGEN 5 mg/dL (7-18)
--- NOTE | 2017-02-02 06:39 | NUR ---
SPOKE WIHT PT ABOUT PT FALL. PT HAS AGREED TO COME AND STAY WITH HIM.
--- NOTE | 2017-02-02 07:20 | NUR ---
PATIENT RECEIVED ALERT IN LOW [place]ETT POSITION. NO SIGNS OF DISTRESS NOTED. DENIES NEEDS. SIDE RAILS UP X2. BED IN LOW POSITION. CALL LIGHT IN REACH.
[2017-02-02 08:51] VITALS: BP 166/86
--- NOTE | 2017-02-02 10:19 | NUR ---
PT RETURNED FROM XRAY AFTER BONE MARROW BIOPSY. DRESSING TO RIGHT ILIAC CREST CLEAN DRY AND INTACT. VS 142/88 P 77 R 16 98% RA. BED ALARM TURNED ON AND ACTIVE. AT BEDSIDE. CALL LIGHT IN REACH. VERY SLEEPY.
--- NOTE | 2017-02-02 12:09 | NUR ---
IN AND OUT CATH DONE ORDERED. 800 CC YELLOW URINE OBTAINED. SPECIMEN TO LAB
--- NOTE | 2017-02-02 12:30 | NUR ---
PATIENT ALERT IN BED EATING LUNCH. TOLERATING WELL. DENIES NEEDS. FAMILY PRESENT. SIDE RAILS UP X2. BED IN LOW POSITION. CALL LIGHT IN REACH.
[2017-02-02 13:12] VITALS: BP 165/97
[2017-02-02 13:30] LABS: APPEARANCE CLEAR (CLEAR); BILIRUBIN NEGATIVE (NEGATIVE); COLOR YELLOW (YELLOW); GLUCOSE NEGATIVE (NEGATIVE); KETONE NEGATIVE (NEGATIVE); LEUKOCYTE ESTERASE NEGATIVE (NEGATIVE); NITRITE NEGATIVE (NEGATIVE); PROTEIN NEGATIVE (NEGATIVE); SPECIFIC GRAVITY 1.015 (1.005-1.020); UROBILINOGEN NORMAL (NORMAL)
[2017-02-02 13:32] LABS: BACTERIA FEW /hpf (NONE SEEN); EPITHELIAL CELLS OCC /hpf (0-5); MUCUS <1+ /lpf (NONE SEEN); RED CELLS - URINE >50 /hpf (0-5); WHITE CELLS - URINE 0-5 /hpf (0-5)
--- NOTE | 2017-02-02 14:00 | NUR ---
ALERT IN BED. RATES PAIN 5/10. SCDS ON BILATERALLY. DENIES NEEDS. SIDE RAILS UP X3. BED IN LOW POSITION. CALL LIGHT IN REACH. YENIFER ALARM ON.
--- NOTE | 2017-02-02 14:45 | NUR ---
CM REASSESSMENT NOTE: REC. CALL FROM [facility] ([facility]) AND SHE STATED THEY DO ACCEPT HIS INSURANCE AND WILL ACCEPT PATIENT AT DISCHARGE
--- NOTE | 2017-02-02 16:11 | NUR ---
NUTRITION MONITORING & EVAL CHART REVIEWED, SPOKE WITH NURSING AND CALL WORKER PERSON. DIET NOW ADVANCED TO REG. RD FOLLOWING
--- NOTE | 2017-02-02 17:00 | NUR ---
PATIENT IN RIGHT LATERAL POSITION RESTING WITH EYES CLOSED. RESPIRATIONS EVEN AND UNLABORED. SIDE RAILS UP X2. BED IN LOW POSITION. CALL LIGHT IN REACH.
[2017-02-02 20:00] VITALS: BP 155/92
[2017-02-03] VITALS: BP 162/87
[2017-02-03 04:00] VITALS: BP 158/67
[2017-02-03 05:48] LABS: BASOPHILS 0.2 % (0-2); EOSINOPHILS 0.1 % (0-7); HEMATOCRIT 29.4 % (42.0-54.0); IMMATURE GRANULOCYTES 1.9 % (0-5); LYMPHOCYTES 10.8 % (15-50); MCV 85.2 fL (80.0-100.0); MEAN PLATELET VOLUME 10.3 fL (7.4-10.4); MONOCYTES 5.9 % (2-11); NEUTROPHILS 81.1 % (40-80); PLATELET COUNT 83 10x3/uL (130-400); RBC 3.45 10x6/uL (4.20-6.10); RDW 22.1 % (11.5-14.5); WBC 12.4 10x3/uL (4.8-10.8)
[2017-02-03 06:17] LABS: ALBUMIN 2.9 g/dL (3.4-5.0); ALKALINE PHOSPHATASE 93 U/L (46-116); ALT (SGPT) 79 U/L (10-68); BILIRUBIN - TOTAL 0.72 mg/dL (0.2-1.3); CALC OSMOLALITY 265 mosm/kg (275-300); CALCIUM 8.5 mg/dL (8.5-10.1); CARBON DIOXIDE 25.2 mmol/L (21.0-32.0); CHLORIDE - SERUM 100 mmol/L (98-107); CREATININE - SERUM 0.8 mg/dL (0.6-1.3); GLUCOSE 86 mg/dL (74-106); POTASSIUM - SERUM 3.2 mmol/L (3.5-5.1); PROTEIN - SERUM 6.4 g/dL (6.4-8.2); SODIUM 135 mmol/L (136-145); UREA NITROGEN 5 mg/dL (7-18); eGFR NON AFRICAN AMERICAN > 90 mL/min (90-120)
--- NOTE | 2017-02-03 07:20 | NUR ---
PATIENT RECEIVED IN RIGHT LATERAL POSITION RESTING QUIETLY. NO SIGNS OF DISTRESS NOTED. SIDE RAILS UP X3. BED IN LOW POSITION. CALL LIGHT IN REACH. YENIFER ALARM ON. DENIES NEEDS.
[2017-02-03 08:15] VITALS: BP 147/88
--- NOTE | 2017-02-03 08:25 | NUR ---
PATIENT REPOSITIONED IN BED. WELL TOLERATED. BREAKFAST TRAY SET UP. SCHEDULED MEDICATION ADMINISTERED. SIDE RAILS UP X2. BED IN LOW POSITION. CALL LIGHT IN REACH. YENIFER ALARM ON.
--- NOTE | 2017-02-03 11:20 | NUR ---
IV TO LEFT FOREARM SALINE LOCKED. DENIES NEEDS. SIDE RAILS UP X3. BED IN LOW POSITION. CALL LIGHT IN REACH. YENIFER ALARM ON.
[2017-02-03] MEDS ORDERED: PROTONIX40 MG PO (12:12)
[2017-02-03 12:31] VITALS: BP 114/56
[2017-02-03] MEDS ORDERED: NORCO 7.5/325 T1 TA1 PO (14:55)
--- NOTE | 2017-02-03 15:20 | NUR ---
IV TO LEFT FOREARM WITH CATH TIP INTACT. SITE COVERED WITH GAUZE AND BANDAID. D/C TEACHING AND PAPER PRESCRIPTION PROVIDED TO PATIENT AND . STATES UNDERSTANDING. DENIES QUESTIONS.
--- NOTE | 2017-02-03 15:50 | NUR ---
PATIENT D/C HOME WITH FAMILY. TRANSFERRED DOWNSTAIRS VIA WHEELCHAIR
--- NOTE | 2017-02-07 08:49 | NUR ---
LATE ENTRY: ORDER FOR HOME HEALTH D/C TUESDAY
== END 2017-02-03 15:56 | disposition home health service (06) | DRG 417 ==
LOC: D.MS 18:32
PROVIDERS: Family Medicine; Internal Medicine Gastroenterology; Internal Medicine Hematology & Oncology; Surgery; ADMIT Family Medicine
PROC: 0DB68ZX Excision of Stomach, Via Natural or Artificial Opening Endoscopic, Diagnostic (ICD-10-PCS; 2017-02-01)
PROC: 0FT44ZZ Resection of Gallbladder, Percutaneous Endoscopic Approach (ICD-10-PCS; principal; 2017-02-01 10:15)
PROC: 0DB58ZX Excision of Esophagus, Via Natural or Artificial Opening Endoscopic, Diagnostic (ICD-10-PCS; 2017-02-01 10:15)
DX: K82.8 Other specified diseases of gallbladder (principal); E43 Unspecified severe protein-calorie malnutrition; K56.7 Ileus, unspecified; I42.9 Cardiomyopathy, unspecified; N39.0 Urinary tract infection, site not specified; N17.9 Acute kidney failure, unspecified; E87.1 Hypo-osmolality and hyponatremia; E86.0 Dehydration; I25.10 Atherosclerotic heart disease of native coronary artery without angina pectoris; Z95.5 Presence of coronary angioplasty implant and graft; K21.9 Gastro-esophageal reflux disease without esophagitis; Z86.73 Personal history of transient ischemic attack (TIA), and cerebral infarction without residual deficits; F32.9 Major depressive disorder, single episode, unspecified; E78.5 Hyperlipidemia, unspecified; K44.9 Diaphragmatic hernia without obstruction or gangrene; G89.4 Chronic pain syndrome; N40.0 Benign prostatic hyperplasia without lower urinary tract symptoms; I95.1 Orthostatic hypotension; E87.6 Hypokalemia; F03.90 Unspecified dementia, unspecified severity, without behavioral disturbance, psychotic disturbance, mood disturbance, and anxiety; R63.4 Abnormal weight loss; Z68.22 Body mass index [BMI] 22.0-22.9, adult

== ENCOUNTER → 2017-09-21 09:02 | Outpatient (CLI) | payer OTHER, MEDICARE ==
[2017-01-26 15:52] VITALS: BMI 22.2
[~2017-09-21 09:02] MED LIST changes: +NORCO 7.5/325 T1 TA1 PO; +PROTONIX40 MG PO
== END | disposition home or self-care (01) ==
LOC: D.NM 09:02
DX: C90.00 Multiple myeloma not having achieved remission (principal)

== ENCOUNTER 2018-01-16 07:31 | Outpatient (CLI) | payer OTHER, MEDICARE ==
[~2018-01-16] VITALS: Ht 177.8 cm; Wt 72.7 kg
--- NOTE | ~2018-01-16 | CN ---
PATIENT NAME:SONALI PEREZ MEDICAL RECORD: [id number] : 50 LOCATION:D.CAT ADMIT DATE: ACCOUNT: [id number] CONSULTING PHYSICIAN: NOEMY ALVA MD REFERRING PHYSICIAN: NOEMY ALVA MD DATE OF CONSULTATION: 01/16/2018 CARDIOLOGY CONSULT DIAGNOSES: 1. Unstable angina. 2. Coronary artery disease. 3. Previous multivessel PTCA stent. 4. Hyperlipidemia. HISTORY OF PRESENT ILLNESS: Mr. Perez presents with increasing episodes of chest pain over the weekend and for the past 5 days. His chest pain got very severe today. His troponin is mildly elevated. He continues to have episodes of chest pain. His EKG shows nonspecific ST-T abnormalities laterally. He has a history of multivessel PTCA stent, the last being approximately [address] Rios. He does remain on Effient. PHYSICAL EXAMINATION: GENERAL APPEARANCE: Well-nourished, well-developed, appears stated age. Level of distress, comfortable. PSYCHIATRIC: Mental status, alert, normal affect. Orientation, oriented to time, place and person. EYES: Lids and conjunctiva, noninjected. No discharge, no pallor. ENT: Lips, teeth, gums, normal dentition. Oropharynx, no cyanosis, no pallor. NECK: Carotid arteries, bilateral normal upstroke, no bruits, no thrills. JUGULAR VEINS: No jugular venous pressure or distention. CERVICAL LYMPH NODES: Nontender, nonenlarged. THYROID: Not enlarged. Nontender. No nodules. LUNGS: Respiratory effort, unlabored. CHEST: Normal curvature. No thoracic deformity. No chest wall tenderness. Percussion, resonant. Auscultation, clear. No wheezes, no rales, no rhonchi. CARDIOVASCULAR: Precordial exam, nondisplaced. No heaves or pericardial thrills. Rate and rhythm, regular. Heart sounds, normal S1, normal S2. No S3, no gallop, no rub. Systolic murmur, not heard. Diastolic murmur, not heard. EXTREMITIES: No cyanosis, no edema. Peripheral pulses, full and equal in all extremities, except as noted. No bruits appreciated. ABDOMEN: Soft, nondistended. Normal aorta. No bruit. Nontender. No masses. Liver, nontender, no hepatomegaly. Spleen, nontender, no splenomegaly. MUSCULOSKELETAL: No joint tenderness. No joint swelling. No erythema. NEUROLOGICAL: Normal gait, normal strength, normal tone. SKIN: Warm and dry. REVIEW OF SYSTEMS: The patient reports easy bruising but reports no swollen glands. The patient reports no fever, no night sweats, no significant weight gain, no significant weight loss. No significant exercise tolerance. The patient reports no dry eyes, no irritation, no vision change. Patient reports no difficulty hearing and no ear pain. Patient reports no frequent nose bleeds or nose and sinus problems. Patient reports on arm pain on exertion. No shortness of breath while lying down. No history of heart murmur. Patient reports no cough, no wheezing or coughing up blood. Patient reports no CONSULT REPORT [id number] SONALI PEREZ abdominal pain, no vomiting. Normal appetite. No diarrhea and not vomiting blood. No nausea and no constipation. Patient reports no incontinence. No difficulty urinating. No hematuria. No increased frequency. Patient reports no muscle aches. No weakness, no arthralgias, no back pain. No swelling of the extremities. Patient reports no abnormal mole, no jaundice, no rashes. Reports no loss of consciousness. No weakness and no numbness. No seizures, dizziness, or headaches. The patient reports no depression, no sleep disturbance, feeling safe in a relationship and no alcohol abuse. Patient reports on fatigue. Reports no runny nose or sinus pressure. No itching, no hives, and no frequent sneezing. OVERALL IMPRESSION: Unstable angina. We will proceed with repeat coronary angiography. Further care depends upon the findings of the angiography. TRANSINT:[id number] Voice Confirmation ID: [id number] DOCUMENT ID: [id number] NOEMY ALVA MD at 1705 CC: [id number] DICTATION DATE: 01/16/18910 MICROSTRATEGY BI DEVELOPER: 01/16/18 1313 DEP CLI 01/17/18 [place] [id number] [place] [id number]
--- NOTE | ~2018-01-16 | HEMODYNAMI ---
PATIENT:SONALI PEREZ MEDICAL RECORD: [id number] : 50 LOCATION:[facility] ADMISSION DATE: 01/16/18 Generatedon:01/16/201813:11 Patient name: SONALI PEREZ Patient #: [id number] SSN: : 1950 Date of study: 01/16/2018 Page: Of Hemodynamic Procedure Report Patient Data Patient Demographics First Name: SONALI Gender: Male Last Name: CHRIS : 1950 [facility] Initial: J Age: 68 year(s) Patient #: [id number] Race: Unknown Additional ID: [id number] Contact details [address]: [address] [place] [address] State: [place] City: [place] Zip code: [address] Past Medical History Allergies Allergen Reaction Date Comments Reported Other allergy 01/16/2018 morphine Admission Admission Data Admission Date: 01/16/2018 Admission Time: 7:31 Lab Results Lab Result Date: 01/16/2018 Lab Result Time: 0:00 Biochemistry Name Units Result Min Max BUN mg/dl 13 --(--*-)-- 7 18 Creatinine mg/dl 1.1 --(--*-)-- 0.6 1.3 CBC Name Units Result Min Max Hematocrit % 28.9 *-(----)-- 42 54 Hemoglobin g/dl 9.2 *-(----)-- 13.5 17.5 Procedure Procedure Types Cath Procedure Diagnostic Procedure C [facility] w/Coronaries PCI Procedure Coronary Stent Coronary Stent Initial Procedure Description Procedure Date Procedure Date: 01/16/2018 Procedure Start Time: 12:51 Procedure End Time: 13:08 Procedure Staff Name Function Stoney Grider MD Performing Physician Alphonso Small RN Nurse Kameron Carlos RT Monitor Frederick Benito RT Scrub Procedure Data Cath Procedure Fluoroscopy Diagnostic fluoroscopy Total fluoroscopy Time: 3.4 time: 3.4 min min Diagnostic fluoroscopy Total fluoroscopy dose: dose: 1149 mGy 1149 mGy Contrast Material Contrast Material Type Amount (ml) Isovue 300 118 Entry Location Entry Primary Successful Side Size Upsize Upsize Entry Closure Succes sful Closure Location (Fr) 1 (Fr) 2 (Fr) Remarks Device Remarks Femoral Right 6 Fr Exoseal artery Short Estimated blood loss: 10 ml Diagnostic catheters Device Type Used For End Catheter Placement MULTIPACK Pigtail 5 Fr Procedure catheter MULTIPACK JL 4.0 5Fr Procedure catheter Procedure Complications No complications Procedure Medications Medication Administration Route Dosage Oxygen etCO2 Nasal cannula 2 l/min Heparin Flush Bag added to field 2 bags (1000units/500ml NS) 0.9% NaCl I.V. 100 ml/hr Zofran I.V. 4 mg Fentanyl I.V. 50 mcg Versed I.V. 1 mg Fentanyl I.V. 50 mcg Versed I.V. 1 mg Fentanyl I.V. 50 mcg Heparin Bolus I.V. 4000 units Fentanyl I.V. 50 mcg Hemodynamics Rest HGB: 9.2 (g/dl) Heart Rate: 76 (bpm) Pressure Samples Time Site Value (mmHg) Purpose Heart Use Rate(bpm) 12:54 LV 116/11,33 Snapshot 83 12:54 LV 153/13,35 Snapshot 81 Snapshots Pre Cath Intra NCS Post Cath Vital Signs Time Heart Resp SPO2 etCO2 NIBP (mmHg) Rhythm Pain Sedation Rate (ipm) (%) (mmHg) Status Level (bpm) 12:42:53 68 24 100 29 148/75(119) NSR 0 (11) 10(A) , No pain 12:47:07 75 21 100 0 151/84(103) NSR 0 (11) 10(A) , No pain 12:52:43 75 17 100 0 127/78(114) NSR 0 (11) 10(A) , No pain 12:56:50 83 16 96 22.4 117/80(107) NSR 0 (11) 10(A) , No pain 13:00:58 86 17 100 0 106/70(86) NSR 0 (11) 10(A) , No pain 13:05:02 89 24 100 0 109/76(86) NSR 0 (11) 10(A) , No pain Medications Time Medication Route Dose Verified Delivered Reason Notes Effectiveness by by 12:43:33 Oxygen etCO2 2 Stoney Werner Per physician Nasal l/min Cheo Small RN cannula 12:43:42 Heparin Flush added 2 Stoney Gossy used for Bag to bags Cheo Small RN procedure (1000units/500ml field NS) 12:43:58 0.9% NaCl I.V. 100 Stoney Alphonso Per physician ml/hr Cheo Small RN 12:44:12 Zofran I.V. 4 mg Stoney Werner for nausea Cheo Small RN 12:50:41 Fentanyl I.V. 50 Stoney Alphonso for sedation mcg Cheo Small RN 12:50:49 Versed I.V. 1 mg Stoney Alphonso for sedation Cheo Small RN 12:52:14 Fentanyl I.V. 50 Stoney Alphonso for sedation mcg Cheo Small RN 12:52:18 Versed I.V. 1 mg Stoney Alphonso for sedation Cheo Small RN 12:58:36 Fentanyl I.V. 50 Stoney Alphonso for sedation mcg Cheo Small RN 12:58:45 Heparin Bolus I.V. 4000 Stoney Alphonso for units Cheo Small RN anticoagulation 13:02:50 Fentanyl I.V. 50 Stoney Alphonso for sedation mcg Choe Small psych nurse Log Time Note 12:15:25 Frederick Benito RT(R) sent for patient. Start room use. 12:15:26 Time tracking: Regular hours (M-F 7:00 - 5:00) 12:15:30 Plan of Care:Hemodynamics will remain stable., Cardiac rhythm will remain stable., Comfort level will be maintained., Respiratory function will remain adequate., Patient/ family verbilizes understanding of procedure., Procedure tolerated without complication., Recovers from procedure without complications.. 12:33:40 Patient received from ED to CCL 2 Alert and oriented. Tansferred to table in Supine position. 12:33:42 Warm blankets applied, and yumiko hugger turned on for patient comfort. 12:33:43 Correct patient and procedure confirmed by team. 12:33:44 ECG and BP/O2 sat monitors applied to patient. 12:33:50 H&P Date Dictated: 01/16/2018 New H&P dictated by physician.. 12:33:50 Pre-procedure instructions explained to patient. 12:33:51 Pre-op teaching completed and patient verbalized understanding. 12:34:30 Lab Result : Hemoglobin 9.2 g/dl 12:34:30 Lab Result : Creatinine 1.1 mg/dl 12::30 Lab Result : BUN 13 mg/dl 12:34:30 Lab Result : Hematocrit 28.9 % 12:41:42 Vital chart was started 12:43:33 Oxygen 2 l/min etCO2 Nasal cannula was administered by Alphonso Small RN; Per physician; 12:43:42 Heparin Flush Bag (1000units/500ml NS) 2 bags added to field was administered by Alphonso Small RN; used for procedure; 12:43:58 0.9% NaCl 100 ml/hr I.V. was administered by Alphonso Small RN; Per physician; 12:44:12 Zofran 4 mg I.V. was administered by Alphonso Small RN; for nausea; 12:48:29 Baseline sample Acquired. 12:48:34 Rhythm: sinus rhythm 12:48:36 Full Disclosure recording started 12:48:40 Family in waiting room. 12:48:43 Patient NPO since Breakfast. 12:48:56 Patient allergic to Other allergymorphine 12:48:58 Is the patient allergic to Iodine/contrast media? No. 12:48:59 Is patient on blood thinner?Yes 12:49:01 ACC The patient was administered the following blood thiners within the last 24 hours: ACCEffient 12:49:04 Patient diabetic? No. 12:49:07 Previous problem with sedation/anesthesia? No ? 12:49:08 Snore? No 12:49:09 Sleep apnea? No 12:49:10 Deviated septum? No 12:49:10 Opens mouth fully? Yes 12:49:11 Sticks out tongue? Yes 12:49:13 Airway obstruction? No ? 12:49:18 Dentures? Yes in tight 12:49:22 Pre procedure: right dorsailis pedis pulse 1+ Palpable, but thready & weak; easily obliterated 12:49:24 Patient pain scale 0/10 ?. 12:49:27 IV patent on arrival in right hand with 0.9% NaCl at [facility]. 12:49:29 Lab results completed and on chart. 12:49:32 Right groin area was prepped with chlora-prep and draped in sterile fashion 12:49:33 Alarms reviewed by R. N. 12:49:33 Sharps counted by scrub and verified by R.N. 12:49:38 Use device set Femoral Dx 12:49:40 ACIST Syringe (54823) opened to sterile field. 12:49:40 Bag Decanter (2002S) opened to sterile field. 12:49:40 Medline Cath Pack ([id number]) opened to sterile field. 12:49:42 ACIST Hand Control (87357) opened to sterile field. 12:49:42 ACIST Manifold (04931) opened to sterile field. 12:49:43 Tegaderm 4 x 4 (1626W) opened to sterile field. 12:49:45 SHEATH Prelude 5Fr 0.035 (BQK-5Q-00-035) opened to sterile field. 12:49:46 DIAGNOSTIC WIRE .035 260cm J wire (978722) opened to sterile field. 12:49:52 DIAGNOSTIC Multipack 5Fr catheter set ([id number]) opened to sterile field. 12:49:58 Physician arrived 12:49:58 --------ALL STOP TIME OUT------ 12:49:59 Final Timeout: patient, procedure, and site verified with staff and physician. All members of the team are in agreement. 12:50:00 Right groin site verified by team. 12:50:04 Physical assessment completed. ASA score P 2 - A patient with mild systemic disease as per Stoney Grider MD. 12:50:07 Sedation plan: IV Moderate Sedation Medication:Versed, Fentanyl 12:50:41 Fentanyl 50 mcg I.V. was administered by Alphonso Small RN; for sedation; 12:50:49 Versed 1 mg I.V. was administered by Alphonso Small RN; for sedation; 12:51:24 Procedure started. 12:51:43 Local anesthetic to right femoral artery with Lidocaine 1% by Stoney Grider MD.INITIAL ACCESS ONLY 12:52:14 Fentanyl 50 mcg I.V. was administered by Alphonso Small RN; for sedation; 12:52:18 Versed 1 mg I.V. was administered by Alphonso Small RN; for sedation; 12:52:34 SHEATH Prelude 6Fr 0.035 (BYG-2G-43-035) opened to sterile field. 12:52:43 A 6 Fr Short sheath was inserted into the Right Femoral artery 12:53:24 A MULTIPACK Pigtail 5 Fr catheter was advanced over the wire and used for Procedure. 12:53:33 Zero performed for pressure channel P1 12:53:38 Zero performed for pressure channel P1 12:53:42 Zero performed for pressure channel P1 12:53:51 Zero performed for pressure channel P1 12:53:55 Zero performed for pressure channel P1 12:53:59 Zero performed for pressure channel P1 12:54:19 LV gram done using WARD 12:54:21 Injector settings: Ml/sec: 10, Volume: 20, 12:54:25 EF : 35 % 12:54:28 LV hemodynamics recorded. 12:54:29 Catheter exchanged over wire. 12:54:36 A MULTIPACK JL 4.0 5Fr catheter was advanced over the wire and used for Procedure. 12:54:40 Zero performed for pressure channel P1 12:55:05 LCA angiography performed. 12:56:46 INFLATOR Merit BasixCompak (YP5640) opened to sterile field. 12:56:47 CHOICE PT Extra Support 182cm wire ([id number]) opened to sterile field. 12:57:14 Zero performed for pressure channel P1 12:58:36 Fentanyl 50 mcg I.V. was administered by Alphonso Small RN; for sedation; 12:58:45 Heparin Bolus 4000 units I.V. was administered by Alphonso Small RN; for anticoagulation; 12:58:58 Catheter removed. 12:59:06 6 Fr xblad 4 guide catheter was inserted over the wire 12:59:14 choice pt wire advanced. 12:59:46 Wire advanced across lesion. 13:00:27 Inflate balloon Inflation number: 1 A EUPHORA 2.0 x 10 Balloon ([id number]) was prepped and advanced across the Prox CX, then inflated to 19 MARGARITA for 0:10 (min:sec). 13:00:46 Inflation number: 2 The EUPHORA 2.0 x 10 Balloon ([id number]) was reinflated across the Prox CX, to 19 MARGARITA for 0:10 (min:sec). 13:00:54 Inflation number: 3 The EUPHORA 2.0 x 10 Balloon ([id number]) was reinflated across the Prox CX, to 19 MARGARITA for 0:10 (min:sec). 13:01:12 Inflation number: 4 The EUPHORA 2.0 x 10 Balloon ([id number]) was reinflated across the Prox CX, to 21 MARGARITA for 0:10 (min:sec). 13:01:15 Balloon removed over the wire. 13:02:38 Place stent Inflation Number: 5 A TERESA RX 2.5 x 18 stent ([id number]) was prepped and advanced across the Prox CX. The stent was deployed at 17 MARGARITA for 0:10 (min:sec). 13:02:50 Fentanyl 50 mcg I.V. was administered by Alphonso Small RN; for sedation; 13:03:17 Stent catheter was removed intact over wire. 13:03:21 Wire removed. 13:03:22 Guide catheter removed. 13:03:29 EXOSEAL 6Fr (EX600) opened to sterile field. 13:03:38 Sheath removed intact; hemostasis achieved with Exoseal to the Right Femoral artery. 13:03:39 Procedure ended.(Physican Out) 13:05:58 Fluoroscopy time 03.40 minutes. 13:06:01 Fluoroscopy dose: 1149 mGy 13:06:01 Flurop Dose total: 1149 13:06:04 Contrast amount:Isovue 300 118ml. 13:06:05 Sharps counted by scrub and verified by R.N. 13:06:08 Insertion/operative site no bleeding no hematoma. 13:06:38 Pt will not hold still. Placing Femstop on for bleeding percautions. 13:06:46 FEMSTOP Gold (W44322) opened to sterile field. 13:06:52 Femstop placed over the right femoral artery at 139 mmHg. Hemostasis achieved. 13:07:00 Post-procedure physical assessment completed. ASA score P 2 - A patient with mild systemic disease as per Stoney Grider MD. 13:07:03 Post procedure rhythm: unchanged. 13:07:05 Estimated blood loss: 10 ml 13:07:06 Post procedure instruction explained to patient.Patient verbalizes understanding. 13:07:06 Patient needs reinforcement of post procedure teaching. 13:07:15 Procedure type changed to Cath procedure, Diagnostic procedure, LHC, LHC w/Coronaries, PCI procedure, Coronary Stent, Coronary Stent Initial 13:08:14 Procedure and supply charges have been captured, reviewed, submitted and are correct. 13:08:16 Procedure Complication : No complications 13:08:18 Vital chart was stopped 13:08:18 See physician's report for complete and final results. 13:08:21 Report given to PCU. 13:08:24 Patient transfered to PCU with Stretcher. 13:08:28 Procedure ended. 13:08:28 Full Disclosure recording stopped 13:08:32 End room use (Document Last) Intervention Summary Intervention Notes Time ActionType Lesion and Equipment Used Action# Pressure Duration Attributes 13:00:27 Inflate Prox CX EUPHORA 2.0 x 1 19 00:10 balloon 10 Balloon ([id number]) 13:00:46 Reinflate Prox CX EUPHORA 2.0 x 2 19 00:10 balloon 10 Balloon ([id number]) 13:00:54 Reinflate Prox CX EUPHORA 2.0 x 3 19 00:10 balloon 10 Balloon ([id number]) 13:01:12 Reinflate Prox CX EUPHORA 2.0 x 4 21 00:10 balloon 10 Balloon ([id number]) 13:02:38 Place stent Prox CX TERESA RX 2.5 x 5 17 00:10 18 stent ([id number]) Device Usage Item Name Manufacture Quantity Catalog Number Hospital Part Current Minimal Lot# / Charge Number Stock Stock Serial# Code ACIST Syringe Acist 1 31629 [id number] 707525 046830 20 (95849) [employer] Bag Decanter Microtek 1 2001S 546361 48718 155860 5 (2001S) Medical Inc. Medline Cath Cardinal 1 [id number] 100821 91661 015756 5 Pack Health ([id number]) ACIST Hand Acist 1 90040 260486 340609 409454 5 Control (57012) [employer] ACIST Manifold Acist 1 71204 799344 911588 534143 5 (70663) [employer] Inc Tegaderm 4 x 4 3M 1 1626W 048054 012945 728836 5 (1626W) SHEATH Prelude Merit 1 BOP-0I-94-035 621874 440822 094425 5 5Fr 0.035 Medical (BFC-9I-78-035) DIAGNOSTIC WIRE St Remigio 1 198727 089674 597057 071777 30 .035 260cm J wire (134149) DIAGNOSTIC Cardinal 1 YQ0749 429212 60613 140559 30 Multipack 5Fr Health catheter set ([id number]) SHEATH Prelude Merit 1 PKH-4E-12-35 774802 5634537 965700 5 6Fr 0.035 Medical (HFW-6W-67-035) MULTIPACK Cardinal 1 [id number] 5 Pigtail 5 Fr Health catheter MULTIPACK JL Cardinal 1 094086 5 4.0 5Fr Health catheter INFLATOR Merit Merit 1 FB3610 722963 134751 172752 15 [employer] ([id number]) CHOICE PT Extra Irving 1 [id number] 319911 013361 899713 5 Support 182cm Scientific wire ([id number]) EUPHORA 2.0 x Medtronic 1 [id number] 485557 385556 778312 5 [id number] 10 Balloon ([id number]) TERESA RX 2.5 x Medtronic 1 [id number] 477279 2613069 313710 5 [id number] 18 stent ([id number]) EXOSEAL 6Fr Cardinal 1 EX600 272758 943418 526230 10 (EX600) Health FEMSTOP Gold St Remigio 1 [id number] 847824 191559 972790 5 ([id number]) Signature Audit [place] Stage Time Signature Unsigned Intra-Procedure 01/16/2018 Kameron Carlos 1:11:48 PM RT(R) Signatures Monitor : Kameron Carlos RT Signature : Date : Time : [place] [id number] [place] [address]
--- NOTE | ~2018-01-16 | DS ---
PATIENT:SONALI PEREZ :50 MEDICAL RECORD: [id number] DISCHARGE SUMMARY ADMISSION DATE: 01/16/18 DISCHARGE DATE: 01/17/18 DISCHARGE DIAGNOSES: 1. Angina. 2. Coronary artery disease. 3. Percutaneous transluminal coronary angioplasty to left anterior descending. Percutaneous transluminal coronary angioplasty to the left circumflex this admission. HISTORY: Mr. Perez presents with unstable angina, found to have total occlusion of the circumflex as well as 90% stenosis of the LAD, underwent successful PTCA stent to the circumflex and PTCA of the LAD, was discharged home with no change in his medications as he is already on Effient and aspirin. He will follow up with [facility] in 1 month. TRANSINT:[id number] Voice Confirmation ID: [id number] DOCUMENT ID: [id number] NOEMY ALVA MD at 1705 CC: [id number] DICTATION DATE: 01/17/18 1226 SENIOR MANAGEMENT CONSULTANT: 01/17/[address] [place] [address] CLI 01/17/[address] [address]
--- NOTE | ~2018-01-16 | OP ---
PATIENT NAME: SONALI PEREZ MEDICAL RECORD: [id number] :50 LOCATION:[facility] ADMISSION DATE: SURGEON: NOEMY ALVA MD DATE OF OPERATION: 01/17/2018 PROCEDURES: 1. PTCA, LAD. 2. Selective coronary angiography. INDICATION: Angina and coronary artery disease. PROCEDURE IN DETAIL: After informed consent was obtained and after detailed explanation of risks, benefits as well as alternative therapies, the patient elected to proceed with angiogram and angioplasty. The left femoral area was prepped and draped in normal sterile fashion. Left femoral artery was cannulated via modified Seldinger technique with placement of 6-Occitan sheath. All catheters exchanged through this sheath. FINDINGS: The left anterior descending has 90% stenosis in the very distal part of the vessel. This was addressed with a 2.0 balloon. Due to the tortuosity and calcification of the vessel, no stent would traverse this far. There was an excellent result with just ballooning it with no significant residual stenosis and no dissection or aneurysm formation. OVERALL IMPRESSION: Successful percutaneous transluminal coronary angioplasty of the distal left anterior descending going from 90% initial stenosis to 0% residual. TRANSINT:[id number] Voice Confirmation ID: [id number] DOCUMENT ID: [id number] NOEMY ALVA MD at 1705 CC: [id number] DICTATION DATE: 01/17/18 1227 PALLIATIVE CARE SPECIALIST: 01/17/18 1403 DEP CLI 01/17/18 [place] [address]
--- NOTE | ~2018-01-16 | HEMODYNAMI ---
PATIENT:SONALI PEREZ MEDICAL RECORD: [id number] : 50 [id number] ADMISSION DATE: 01/16/18 Generatedon:01/17/201812:31 Patient name: SONALI PEREZ Patient #: [id number] SSN: : 1950 Date of study: 01/17/2018 Page: Of Hemodynamic Procedure Report Patient Data Patient Demographics Procedure consent was obtained First Name: SONALI Gender: Male Last Name: CHRIS : 1950 [facility] Initial: [place] Age: 68 year(s) Patient #: [id number] Race: Unknown Additional ID: [id number] Contact details [address]: [address] [place] [address] State: [place] City: [place] Zip code: [address] Past Medical History Allergies Allergen Reaction Date Comments Reported Other allergy 01/16/2018 morphine Admission Admission Data Admission Date: 01/16/2018 Admission Time: 7:31 Room #: [facility] Lab Results Lab Result Date: 01/16/2018 Lab Result Time: 0:00 Biochemistry Name Units Result Min Max BUN mg/dl 13 --(--*-)-- 7 18 Creatinine mg/dl 1.1 --(--*-)-- 0.6 1.3 CBC Name Units Result Min Max Hematocrit % 28.9 *-(----)-- 42 54 Hemoglobin g/dl 9.2 *-(----)-- 13.5 17.5 Procedure Procedure Types Cath Procedure PCI Procedure PTCA PTCA Initial Procedure Description Procedure Date Procedure Date: 01/17/2018 Procedure Start Time: 12:15 Procedure End Time: 12:31 Procedure Staff Name Function Elyssa Campbell RT Monitor Doreen Kumari RT Scrub Marisa Greenfield RN Nurse Stoney Grider MD Performing Physician Procedure Data Cath Procedure Fluoroscopy Diagnostic fluoroscopy Total fluoroscopy Time: 2 time: 2 min min Diagnostic fluoroscopy Total fluoroscopy dose: 367 dose: 367 mGy mGy Contrast Material Contrast Material Type Amount (ml) Isovue 300 58 Entry Location Entry Primary Successful Side Size Upsize Upsize Entry Closure Succes sful Closure Location (Fr) 1 (Fr) 2 (Fr) Remarks Device Remarks Femoral Left 6 Fr Exoseal artery Short Estimated blood loss: 10 ml Procedure Complications No complications Procedure Medications Medication Administration Route Dosage Oxygen NC 2 l/min Lidocaine 1% added to field 20 Heparin Flush Bag added to field 2 bags (1000units/500ml NS) 0.9% NaCl I.V. 100 ml/hr Versed I.V. 1 mg Fentanyl I.V. 50 mcg Heparin Bolus I.V. 4000 units Versed I.V. 1 mg Fentanyl I.V. 50 mcg Versed I.V. 1 mg Fentanyl I.V. 50 mcg Hemodynamics Rest HGB: 9.2 (g/dl) Heart Rate: 63 (bpm) Snapshots Pre Cath Intra NCS Post Cath Vital Signs Time Heart Resp SPO2 etCO2 NIBP Rhythm Pain Sedation Rate (ipm) (%) (mmHg) (mmHg) Status Level (bpm) 12:09:52 69 19 100 3.7 105/64(84) NSR 0 (11) 10(A) , No pain 12:14:27 75 19 100 0 100/70(94) NSR 0 (11) 10(A) , No pain 12:19:03 73 17 100 0 99/55(75) NSR 0 (11) 9(A) , No pain 12:23:36 80 17 100 0 94/56(76) NSR 0 (11) 10(A) , No pain 12:27:33 71 15 100 20.2 96/59(76) NSR 0 (11) 10(A) , No pain Medications Time Medication Route Dose Verified Delivered Reason Notes Effectiveness by by 12:09:15 Oxygen NC 2 Stoney Cunningham used for l/min Cheo Greenfield RN procedure 12:15:24 Lidocaine 1% added 20ml Stoney Lua for local to vial Cheo Grider MD anesthetic field 12:15:31 Heparin Flush added 2 Stoney Lua used for Bag to bags Cheo Grider MD procedure (1000units/500ml field NS) 12:15:41 0.9% NaCl I.V. 100 Stoneyshmuel Nobleie Per physician ml/hr Cheo Greenfield RN 12:15:51 Versed I.V. 1 mg Stoney Cunningham for sedation Cheo Greenfield RN 12:15:57 Fentanyl I.V. 50 Stoney Cunningham for sedation mcg Cheo Greenfield RN 12:17:15 Heparin Bolus I.V. 4000 Stoney Cunningham for verifi ed units Cheo Greenfield RN anticoagulation with dr grider 12:19:11 Versed I.V. 1 mg Stoney Cunningham for sedation Cheo Greenfield RN 12:19:15 Fentanyl I.V. 50 Stoney Cunningham for sedation mcg Cheo Greenfield RN 12:22:16 Versed I.V. 1 mg Stoney Cunningham for sedation Cheo Greenfield RN 12:22:20 Fentanyl I.V. 50 Stoney Cunningham for sedation mcg Cheo Greenfield RN Procedure Log Time Note 11:42:36 Time tracking: Regular hours (M-F 7:00 - 5:00) 11:42:41 Plan of Care:Hemodynamics will remain stable., Cardiac rhythm will remain stable., Comfort level will be maintained., Respiratory function will remain adequate., Patient/ family verbilizes understanding of procedure., Procedure tolerated without complication., Recovers from procedure without complications.. 11:42:54 Elyssa Counts RT(R) sent for patient. Start room use. 11:59:19 Patient received from PCU to CCL 1 Alert and oriented. Tansferred to table in Supine position. 11:59:20 Warm blankets applied, and yumiko hugger turned on for patient comfort. 12:00:17 Correct patient and procedure confirmed by team. 12:00:18 Signed procedure consent form obtained from patient. 12:00:20 ECG and BP/O2 sat monitors applied to patient. 12:00:21 Full Disclosure recording started 12:09:01 Vital chart was started 12:09:03 Baseline sample Acquired. 12:09:07 Rhythm: sinus rhythm 12:09:15 Oxygen 2 l/min NC was administered by Marisa Greenfield RN; used for procedure; 12:10:20 H&P Date Dictated: 01/16/2018 Within 30 days and on chart.. 12:10:21 Pre-procedure instructions explained to patient. 12:10:22 Pre-op teaching completed and patient verbalized understanding. 12:10:23 Family in patients room. 12:10:25 Patient NPO since Midnight. 12:10:29 Is the patient allergic to Iodine/contrast media? No. 12:10:30 Is patient on blood thinner?Yes 12:10:32 ACC The patient was administered the following blood thiners within the last 24 hours: ACCEffient 12:11:23 Patient diabetic? No. 12:11:26 Previous problem with sedation/anesthesia? No ? 12:11:27 Snore? No 12:11:28 Sleep apnea? No 12:11:29 Deviated septum? No 12:11:30 Opens mouth fully? Yes 12:11:31 Sticks out tongue? Yes 12:11:45 Airway obstruction? No ? 12:11:48 Dentures? Yes IN 12:12:11 Pre procedure: left dorsailis pedis pulse 2+ Normal; easily identifiable; not easily obliterated 12:12:18 Patient pain scale 0/10 ?. 12:12:24 IV patent on arrival in right forearm with 0.9% NaCl at [facility]. 12:12:28 Lab results completed and on chart. 12:12:32 Left groin area was prepped with chlora-prep and draped in sterile fashion 12:12:33 Alarms reviewed by R. N. 12:12:33 Sharps counted by scrub and verified by R.N. 12:12:39 Use device set CATH PACK 12:12:41 Use device set TAUTH PCI 12:12:43 ACIST Syringe (48936) opened to sterile field. 12:12:43 ACIST Hand Control (28222) opened to sterile field. 12:12:43 ACIST Manifold (34550) opened to sterile field. 12:12:44 Medline Cath Pack ([id number]) opened to sterile field. 12:12:45 Bag Decanter (2002) opened to sterile field. 12:12:46 DIAGNOSTIC WIRE .035 260cm J wire (021823) opened to sterile field. 12:12:46 INFLATOR Merit BasixCompak (JT3465) opened to sterile field. 12:12:49 CHOICE PT Extra Support 182cm wire ([id number]) opened to sterile field. 12:12:52 SHEATH Prelude 6Fr 0.035 (GTY-3R-43-035) opened to sterile field. 12:14:07 Final Timeout: patient, procedure, and site verified with staff and physician. All members of the team are in agreement. 12:14:10 Left groin site verified by team. 12:14:13 Physical assessment completed. ASA score P 3 - A patient with severe systemic disease as per Stoney Grider MD. 12:14:17 Sedation plan: IV Moderate Sedation Medication:Versed, Fentanyl 12:14:17 Zero performed for pressure channel P1 12:14:21 Procedure started. 12:14:40 Zero performed for pressure channel P1 12:15:00 Local anesthetic to left femerol artery with Lidocaine 2% by Elyssa ZARATE(R).INITIAL ACCESS ONLY 12:15:24 Lidocaine 1% 20ml vial added to field was administered by Stoney Grider MD; for local anesthetic; 12:15:29 A 6 Fr Short sheath was inserted into the Left Femoral artery 12:15:31 Heparin Flush Bag (1000units/500ml NS) 2 bags added to field was administered by Stoney Grider MD; used for procedure; 12:15:41 0.9% NaCl 100 ml/hr I.V. was administered by Marisa Greenfield RN; Per physician; 12:15:51 Versed 1 mg I.V. was administered by Marisa Greenfield RN; for sedation; 12:15:57 Fentanyl 50 mcg I.V. was administered by Marisa Greenfield RN; for sedation; 12:15:58 6 Fr EBU 4.0 SH guide catheter was inserted over the wire 12:17:15 Heparin Bolus 4000 units I.V. was administered by Marisa Greenfield RN; for anticoagulation; verified with dr grider 12:17:51 CHOICE PT ES wire advanced. 12:18:57 Inflate balloon Inflation number: 1 A EUPHORA 2.0 x 15 Balloon ([id number]) was prepped and advanced across the Dist LAD, then inflated to 11 MARGARITA for 0:08 (min:sec). 12:19:11 Versed 1 mg I.V. was administered by Marisa Greenfield RN; for sedation; 12:19:15 Fentanyl 50 mcg I.V. was administered by Marisa Greenfield RN; for sedation; 12:19:51 Inflation number: 2 The EUPHORA 2.0 x 15 Balloon ([id number]) was reinflated across the Dist LAD, to 13 MARGARITA for 0:26 (min:sec). 12:20:18 Balloon removed over the wire. 12:20:18 Wire removed. 12:20:19 Guide catheter removed. 12:: Sheath removed intact; hemostasis achieved with Exoseal to the Left Femoral artery. 12::47 Procedure ended.(Physican Out) 12:: Versed 1 mg I.V. was administered by Marisa Greenfield RN; for sedation; :: Fentanyl 50 mcg I.V. was administered by Marisa Greenfield RN; for sedation; :: Fluoroscopy time 02.00 minutes. 12:: Flurop Dose total: 367 12:: Fluoroscopy dose: 367 mGy 12:: Contrast amount:Isovue 300 58ml. 12::40 Sharps counted by scrub and verified by R.N. 12:25:42 Insertion/operative site no bleeding no hematoma. 12:25:45 Post-op/insertion site Left Femoral artery dressed using a 4 x 4 and Tegaderm. 12:25:49 Post left femerol artery:stable, clean and dry 12:25:51 Post Procedure Pulses reassessed and unchanged 12:25:56 Post-procedure physical assessment completed. ASA score P 3 - A patient with severe systemic disease as per Stoney Grider MD. 12:25:58 Post procedure rhythm: unchanged. 12:26:05 Estimated blood loss: 10 ml 12:26:06 Post procedure instruction explained to patient.Patient verbalizes understanding. 12:26:07 Patient needs reinforcement of post procedure teaching. 12:26:14 Procedure type changed to Cath procedure, PCI procedure, PTCA, PTCA Initial 12::22 Procedure Complication : No complications 12:26:25 See physician's report for complete and final results. 12:27:14 EXOSEAL 6Fr (EX600) opened to sterile field. 12:27:44 GUIDE 6FR EBU 4.0 SH catheter ([id number]) opened to sterile field. 12:28:29 Tegaderm 4 x 4 (1626W) opened to sterile field. 12:30:45 Procedure and supply charges have been captured, reviewed, submitted and are correct. 12:30:46 Vital chart was stopped 12:30:54 Report given to PCU. 12::57 Patient transfered to PCU with Bed. 12:31:06 Procedure ended. 12:31:06 Full Disclosure recording stopped 12:31:11 End room use (Document Last) Intervention Summary Intervention Notes Time ActionType Lesion and Equipment Action# Pressure Duration Attributes Used 12:18:57 Inflate Dist LAD EUPHORA 1 11 00:08 balloon 2.0 x 15 Balloon ([id number]) 12:19:51 Reinflate Dist LAD EUPHORA 2 13 00:26 balloon 2.0 x 15 Balloon ([id number]) Device Usage Item Name Manufacture Quantity Catalog Number Hospital Part Current Minimal Lot# / Charge Number Stock Stock Serial# Code ACIST Syringe Acist 1 45416 080609 206431 613662 20 (85954) Medical Systems Inc ACIST Hand Acist 1 62603 844006 042800 164782 5 Control (31178) Medical Systems Tangible Cryptography ACIST Manifold Acist 1 25377 880314 382896 821810 5 (56765) Medical Systems Tangible Cryptography Medline Cath Cardinal 1 [id number] 297882 04059 347700 5 Pack CriticalBlue ([id number]) Bag Decanter Microtek 1 2001S 504141 70481 044034 5 () Medical Inc. DIAGNOSTIC WIRE St Remigio 1 747776 784781 298733 189288 30 .035 260cm J wire (413314) INFLATOR Merit Merit 1 DW9086 502871 120518 411666 15 BasixCompak Medical (VF8435) CHOICE PT Extra Rhodhiss 1 [id number] 985747 753290 555143 5 Support 182cm Scientific wire ([id number]) SHEATH Prelude Merit 1 SJX-6W-52-35 192442 0759018 453270 5 6Fr 0.035 Medical (NYW-1Y-51-035) EUPHORA 2.0 x Medtronic 1 [id number] 803585 506266 875854 5 [id number] 15 Balloon ([id number]) EXOSEAL 6Fr Cardinal 1 EX600 663516 675242 377772 10 (EX600) Health GUIDE 6FR EBU Medtronic 1 [id number] 317741 60166 823705 1 4.0 SH catheter ([id number]) Tegaderm 4 x 4 3M 1 1626W 054862 100028 501631 5 (1626W) Signature Audit [place] Stage Time Signature Unsigned Intra-Procedure 01/17/2018 Elyssa 12:31:25 PM Counts RT(R) Signatures Monitor : Elyssa Signature : Counts RT Date : Time : [address] [place] [address]
--- NOTE | ~2018-01-16 | OP ---
PATIENT NAME: SONALI PEREZ MEDICAL RECORD: [id number] :50 LOCATION:D.CAT ADMISSION DATE: SURGEON: NOEMY ALVA MD DATE OF OPERATION: 01/16/2018 PROCEDURES: 1. PTCA stent left circumflex. 2. Left heart catheterization. 3. Selective coronary angiography. 4. Left ventriculogram. INDICATION: Angina and coronary artery disease. PROCEDURE IN DETAIL: After informed consent was obtained and after a detailed description of the risks, benefits as well as alternative therapies, the patient elected to proceed with angiogram and angioplasty. The right femoral area was prepped and draped in normal sterile fashion. Right femoral artery was cannulated via modified Seldinger technique with placement of 6-Czech sheath. All catheters exchanged through this sheath. FINDINGS: Left ventriculogram was performed in standard 30-degree WARD view reveals ejection fraction in the 30% to 35% range. SELECTIVE CORONARY ANGIOGRAPHY: 1. Left main is with no significant angiographic disease. 2. Left anterior descending has previously placed stents that are widely patent. Distal LAD has greater than 80% stenosis. 3. The left circumflex has previously placed stents, these are totally occluded. 4. The right coronary artery has previously placed stent proximally that is patent. There is a new 80% to 90% stenosis in the mid distal vessel. PTCA STENT OF THE LEFT CIRCUMFLEX: We were able to traverse the total occlusion quite easily with a Choice PT wire ballooning this with a 2.0 balloon, stenting with a 2.5 x 18 mm [place]. Result was 0% residual stenosis. OVERALL IMPRESSION: Successful percutaneous transluminal coronary angioplasty stent of the left circumflex going from 100% initial stenosis to 0% residual. PLAN: PTCA stent of the RCA in the near future. TRANSINT:[id number] Voice Confirmation ID: [id number] DOCUMENT ID: [id number] NOEMY ALVA MD at 1705 CC: [id number] DICTATION DATE: 01/16/18 1309 PASSENGER RELATIONS REPRESENTATIVE: 01/16/18 1434 DEP CLI 01/17/18 [place] [address]
[2018-01-16 08:05] LABS: BASOPHILS 0.2 % (0-2); EOSINOPHILS 0.6 % (0-7); HEMATOCRIT 28.9 % (42.0-54.0); HEMOGLOBIN 9.2 g/dL (13.5-17.5); LYMPHOCYTES 26.9 % (15-50); MCH 25.8 pg (26.0-34.0); MCHC 31.8 g/dL (31.0-37.0); MCV 81.2 fL (80.0-100.0); MONOCYTES 9.6 % (2-11); NEUTROPHILS 62.7 % (40-80); RBC 3.56 10x6/uL (4.20-6.10); RDW 17.7 % (11.5-14.5); WBC 5.4 10x3/uL (4.8-10.8)
[2018-01-16 08:07] LABS: PLATELET COUNT 226 10x3/uL (130-400)
[2018-01-16 08:14] LABS: APTT 27.2 SECONDS (22.8-39.4); INR 1.09 (0.85-1.17); PROTIME 13.7 SECONDS (11.6-15.0)
[2018-01-16 08:18] LABS: ALBUMIN 3.7 g/dL (3.4-5.0); ALKALINE PHOSPHATASE 54 U/L (46-116); ALT (SGPT) 15 U/L (10-68); CALC OSMOLALITY 267 mosm/kg (275-300); CALCIUM 8.8 mg/dL (8.5-10.1); CHLORIDE - SERUM 99 mmol/L (98-107); CREATININE - SERUM 1.1 mg/dL (0.6-1.3); GLUCOSE 107 mg/dL (74-106); POTASSIUM - SERUM 3.7 mmol/L (3.5-5.1); SODIUM 134 mmol/L (136-145); UREA NITROGEN 13 mg/dL (7-18); eGFR NON AFRICAN AMERICAN 71 mL/min (90-120)
[2018-01-16 08:32] LABS: CKMB 0.8 U/L (0.0-3.6); TROPONIN-I 0.058 ng/mL (0.000-0.060)
[2018-01-16 14:55] VITALS: BP 144/79; Ht 177.8 cm; Wt 72.7 kg
[2018-01-16 15:35] VITALS: BP 107/69
[2018-01-16 20:00] VITALS: BP 159/80
[2018-01-17] VITALS: BP 105/56
[2018-01-17 04:00] VITALS: BP 95/59
[2018-01-17 08:49] VITALS: BP 112/62
[2018-01-17 12:05] VITALS: BP 109/64
[2018-01-17] MEDS ORDERED: ASPIRIN81 MG PO (14:18)
[2018-01-17 15:57] VITALS: BP 97/54
== END 2018-01-17 17:05 | disposition home or self-care (01) ==
LOC: D.ER 07:31 → D.M2 07:31 → D.CATH 07:31 → EDSTATUS 09:31 → D.M2 13:39 → D.CATH 01-17 17:05
PROVIDERS: Family Medicine
DX: I25.110 Atherosclerotic heart disease of native coronary artery with unstable angina pectoris (principal); Z95.5 Presence of coronary angioplasty implant and graft; E78.5 Hyperlipidemia, unspecified; Z01.812 Encounter for preprocedural laboratory examination

== ENCOUNTER 2018-01-20 13:43 | Observation (INO) | payer OTHER, MEDICARE ==
[~2018-01-20] VITALS: Ht 177.8 cm; Wt 75.0 kg
--- NOTE | ~2018-01-20 | EC ---
PATIENT:SONALI PEREZ DATE OF SERVICE: 01/20/18 SEX: M MEDICAL RECORD: [id number] DATE OF : [birth year] LOCATION:D.M2 D.213 AGE OF PATIENT: 68 ADMISSION DATE: 01/20/18 REFERRING PHYSICIAN: INTERPRETING PHYSICIAN: ALYSE MAYS MD ECHOCARDIOGRAM REPORT ECHO CHARGES 4 ECHO COMPLETE Date: 01/21 CLINICAL DIAGNOSIS: CHF ECHOCARDIOGRAPHIC MEASUREMENTS (adult normal given) AC root (d.<3.7cm) 3.8 cm LV Septum d (<1.2 cm> 1.0 cm Valve Excursion 1.9 cm LV Septum (systole) 1.6 cm Left Atria (s.<4.0cm> 2.9 cm LVPW d(<1.2cm) 1.1 cm RV (d.<2.3cm) 2.2 cm LVPW (sytole) 1.8 cm LV diastole(<5.6CM) 6.9 cm MV E-F(>70mm/sec) cm LV systole 5.1 cm LVOT Diameter 2.0 cm MV exc.(>10mm) cm Est.ejection fraction (50-75%) % DOPPLER: LVIT cm/sec A 91.0 cm/sec E 62.0 cm/sec LA cm/sec RVSP mmHg LVOT 81.0 cm/sec AOP1/2T m/s Asc. Ao 121 cm/sec RVOT 66.0 cm/sec RA cm/sec PA 74.0 cm/sec AV Gradient Peak 6.0 mmHg AV Mean 2.5 mmHg AV Area 2.3 cm MV Gradient Peak 4.0 mmHg MV Mean 1.2 mmHg MV Area cm COMMENTS: Dehydrogenation Converter Helper: Stefani VINESOE Glory Hole Tender: 4 Dr. Mays TAPE# PACS Pericardial Effusion N DATE OF SERVICE: PROCEDURE: Transthoracic echocardiogram. FINDINGS: 1. This was a difficult echocardiogram. Endocardial structures are difficult to visualize. The overall ejection fraction appears to be mildly reduced. The patient does have a sigmoid septum, but it does appear the patient has anterior hypokinesis. Ejection fraction of 35% to 40%. 2. The left atrium is overall normal. ECHOCARDIOGRAM REPORT [id number] CHRISSONALI [place] 3. The aortic valve appears to be overall normal. 4. There is trace mitral regurgitation. 5. There is trace tricuspid regurgitation. RVSP is unable to be calculated. 6. The pericardium is normal. 7. The right ventricle is normal. 8. The right atrium is normal. 9. The pulmonic valve is normal. CONCLUSION: The patient does have evidence of hypertensive heart disease. There does appear to be some regional wall motion abnormality. In comparison to his echo on 01/12/2017, appears to be some very similar. No distinct changes and again it was a difficult echocardiogram at that time also. TRANSINT:[id number] Voice Confirmation ID: [id number] DOCUMENT ID: [id number] ALYSE MAYS MD at 1147 CC: [id number] DICTATION DATE: 01/22/181817 CONTENT PUBLISHER: 01/22/181936 DIS IN 01/21/18 [facility] [address] [place] [address]
[~2018-01-20 13:43] MED LIST changes: +ASPIRIN81 MG PO
[2018-01-20 15:46] LABS: BASOPHILS 0.2 % (0-2); EOSINOPHILS 0.4 % (0-7); HEMATOCRIT 32.7 % (42.0-54.0); HEMOGLOBIN 10.5 g/dL (13.5-17.5); IMMATURE GRANULOCYTES 0.2 % (0-5); LYMPHOCYTES 24.6 % (15-50); MCHC 32.1 g/dL (31.0-37.0); MCV 80.9 fL (80.0-100.0); MEAN PLATELET VOLUME 8.8 fL (7.4-10.4); NEUTROPHILS 65.6 % (40-80); PLATELET COUNT 218 10x3/uL (130-400); RBC 4.04 10x6/uL (4.20-6.10); RDW 17.7 % (11.5-14.5)
[2018-01-20 15:59] LABS: ALBUMIN 3.3 g/dL (3.4-5.0); ALKALINE PHOSPHATASE 51 U/L (46-116); ALT (SGPT) 13 U/L (10-68); CALC OSMOLALITY 270 mosm/kg (275-300); CALCIUM 8.9 mg/dL (8.5-10.1); CARBON DIOXIDE 28.1 mmol/L (21.0-32.0); CHLORIDE - SERUM 101 mmol/L (98-107); CREATININE - SERUM 1.3 mg/dL (0.6-1.3); GLUCOSE 94 mg/dL (74-106); POTASSIUM - SERUM 4.5 mmol/L (3.5-5.1); PROTEIN - SERUM 7.6 g/dL (6.4-8.2); SODIUM 135 mmol/L (136-145); UREA NITROGEN 14 mg/dL (7-18); eGFR NON AFRICAN AMERICAN 58 mL/min (90-120)
[2018-01-20 16:15] LABS: CKMB 0.2 U/L (0.0-3.6); CREATINE KINASE 15 UL (21-232); PRO BNP 2056 pg/mL (0-125)
[2018-01-20 16:21] LABS: TROPONIN-I 0.071 ng/mL (0.000-0.060)
[2018-01-20 16:54] VITALS: BP 116/82
[2018-01-20 18:20] VITALS: BP 113/84
[2018-01-20 19:00] VITALS: BP 104/73
[2018-01-20 20:04] LABS: CKMB 0.5 U/L (0.0-3.6); CREATINE KINASE 8 UL (21-232)
[2018-01-20 20:05] LABS: TROPONIN-I 0.064 ng/mL (0.000-0.060)
[2018-01-20 20:10] VITALS: BP 101/76
[2018-01-20 21:04] VITALS: BP 105/78
[2018-01-20 21:19] VITALS: BP 105/78; BMI 23.0
[2018-01-21 00:34] VITALS: BP 141/76
[2018-01-21 02:21] LABS: CKMB 1.3 U/L (0.0-3.6); CREATINE KINASE 48 UL (21-232)
[2018-01-21 02:22] LABS: TROPONIN-I 0.071 ng/mL (0.000-0.060)
[2018-01-21 05:37] VITALS: BP 107/66
[2018-01-21 05:46] LABS: BASOPHILS 0.5 % (0-2); EOSINOPHILS 1.9 % (0-7); HEMATOCRIT 30.1 % (42.0-54.0); HEMOGLOBIN 9.6 g/dL (13.5-17.5); IMMATURE GRANULOCYTES 0.2 % (0-5); MCH 25.9 pg (26.0-34.0); MCHC 31.9 g/dL (31.0-37.0); MCV 81.1 fL (80.0-100.0); MEAN PLATELET VOLUME 8.8 fL (7.4-10.4); MONOCYTES 12.6 % (2-11); NEUTROPHILS 41.8 % (40-80); PLATELET COUNT 245 10x3/uL (130-400); RBC 3.71 10x6/uL (4.20-6.10); RDW 17.8 % (11.5-14.5); WBC 4.2 10x3/uL (4.8-10.8)
[2018-01-21 06:14] LABS: ANION GAP 12.2 mmol/L (8-16); CALCIUM 8.4 mg/dL (8.5-10.1); CARBON DIOXIDE 23.6 mmol/L (21.0-32.0); CREATININE - SERUM 1.1 mg/dL (0.6-1.3); POTASSIUM - SERUM 3.8 mmol/L (3.5-5.1)
[2018-01-21 07:30] LABS: CKMB 0.5 U/L (0.0-3.6); CREATINE KINASE 16 UL (21-232)
[2018-01-21 07:31] LABS: TROPONIN-I 0.077 ng/mL (0.000-0.060)
[2018-01-21 08:06] VITALS: BP 109/68
[2018-01-21 13:06] VITALS: Ht 177.8 cm; Wt 75.0 kg
== END 2018-01-21 15:59 | disposition home or self-care (01) ==
LOC: D.ER 13:43 → OBSVTIME 19:15 → D.EDHOLD 19:15 → D.M2 20:32
PROVIDERS: Family Medicine
DX: I95.9 Hypotension, unspecified (principal); I50.9 Heart failure, unspecified; E78.5 Hyperlipidemia, unspecified; F03.90 Unspecified dementia, unspecified severity, without behavioral disturbance, psychotic disturbance, mood disturbance, and anxiety; I25.2 Old myocardial infarction; I25.10 Atherosclerotic heart disease of native coronary artery without angina pectoris; Z95.5 Presence of coronary angioplasty implant and graft; E86.0 Dehydration

== ENCOUNTER 2018-05-19 15:29 | Inpatient (IN) | payer OTHER, MEDICARE ==
[~2018-05-19] VITALS: Ht 177.8 cm; Wt 74.8 kg
--- NOTE | ~2018-05-19 | MORECARE ---
CASE MANAGEMENT DISCHARGE SUMMARY PATIENT: SONALI PEREZ UNIT: [id number] ADM DATE: 05/19/18 AGE: 68 : 50 SEX: M ROOM/BED: D.2121 AUTHOR: KYLAH YEPEZ PHYSICIAN: REFERRING PHYSICIAN: WILIAN JACKSON MD DATE OF SERVICE: 05/19/18 Discharge Plan Patient Name: SONALI PEREZ [facility] [facility] 1950 Planned Disposition: Home Anticipated Discharge Date: 05/21/18 Discharge Date: Expected LOS: 2 Initial Reviewer: [email or web address] Initial Review Date: 05/19/2018 Generated: 05/19/18 6:43 pm DCPIA - Discharge Planning Initial Assessment Updated by [email or web address]: Emelia Nathan on 05/19/18 5:42 pm * Is the patient Alert and Oriented? Yes * How many steps to enter\exit or inside your home? Ramp * PCP Dr. Alvarez * Pharmacy [facility] * Preadmission Environment Home with Family * ADLs Independent * Equipment Walker Wheelchair * List name and contact numbers for known caregivers / representatives who currently or will assist patient after discharge: Kimberly Perez - - [phone] * Verbal permission to speak to the caregivers and representatives has been obtained from the patient. Yes * Community resources currently utilized None * Additional services required to return to the preadmission environment? No * Can the patient safely return to the preadmission environment? Yes * Has this patient been hospitalized within the prior 30 days at any hospital? No Patient Name: SONALI PEREZ Page [id number] at 1743 All edits/amendments must be made on the electronic document DICTATION DATE: 05/19/181741 REAL ESTATE REPRESENTATIVE: MARICHUY 05/19/181741 RPT#: [id number] DC DATE: STATUS: ADM IN [facility] [address] [place] [address] END OF REPORT
--- NOTE | ~2018-05-19 | MORECARE ---
CASE MANAGEMENT DISCHARGE SUMMARY PATIENT: SONALI PEREZ UNIT: [id number] ADM DATE: 05/19/18 AGE: 68 : 50 SEX: M ROOM/BED: D.4008 AUTHOR: KYLAH YEPEZ PHYSICIAN: REFERRING PHYSICIAN: WILIAN JACKSON MD DATE OF SERVICE: 05/22/18 Discharge Plan Patient Name: SONALI PEREZ Facility: [facility]:[place] : 1950 Planned Disposition: Home Anticipated Discharge Date: 05/21/18 Discharge Date: 05/21/2018 Expected LOS: 2 Initial Reviewer: [email or web address] Initial Review Date: 05/19/2018 Generated: 05/22/18 9:51 am DCP- Discharge Planning Updated by [email or web address]: Emelia Nathan on 05/19/18 4:[address] Patient Name: SONALI PEREZ Admission Status: ER Accout number: [id number] Admission Date: 05-19-2018 : 1950 Admission Diagnosis: Attending: WILIAN JACKSON Current LOS: 1 Anticipated DC Date: 05-21-2018 Planned Disposition: Home Primary Insurance: [employer] PPO Discharge Planning Comments: CM met with patient and his to complete initial dc planning assessment. CM educated patient and on the CM role and verbal consent given by patient to complete assessment. Patient is hard of hearing and requested that CM speak to his wire. Patient lives at home with his . At discharge patient plans to return home and feels this is a safe discharge. His is unsure what will be needed at time of discharge. CM discussed home health and other community resources and informed her case management would assist her if services were needed. She stated the patient was diagnosed with multiple myeloma a year ago and opted for no chemo. He has only been followed by his PCP and has not been followed by oncology. CM will continue to follow and will assist as needed with dc plans/needs. See below for more assessment information. Is the patient Alert and Oriented? Yes * How many steps to enter\exit or inside your home? Ramp * PCP Dr. Alvarez * Pharmacy [facility] * Preadmission Environment Home with Family * ADLs Independent * Equipment Walker Wheelchair * List name and contact numbers for known caregivers / representatives who currently or will assist patient after discharge: Kimberly lucero - [phone] * Verbal permission to speak to the caregivers and representatives has been obtained from the patient. Yes * Community resources currently utilized None * Additional services required to return to the preadmission environment? No * Can the patient safely return to the preadmission environment? Yes * Has this patient been hospitalized within the prior 30 days at any hospital? No Floatman: Emelia Nathan DCPIA - Discharge Planning Initial Assessment Updated by [email or web address]: Emelia Nathan on 05/19/18 5:42 pm * Is the patient Alert and Oriented? Yes * How many steps to enter\exit or inside your home? Ramp * PCP Dr. Alvarez * Pharmacy [facility] * Preadmission Environment Home with Family * ADLs Independent * Equipment Walker Wheelchair * List name and contact numbers for known caregivers / representatives who currently or will assist patient after discharge: Kimberly lucero - [phone] * Verbal permission to speak to the caregivers and representatives has been obtained from the patient. Yes * Community resources currently utilized None * Additional services required to return to the preadmission environment? No * Can the patient safely return to the preadmission environment? Yes * Has this patient been hospitalized within the prior 30 days at any hospital? No Last DP export: 05/19/18 4:50 Patient Name: SONALI PEREZ Page [phone] at 0851 All edits/amendments must be made on the electronic document DICTATION DATE: 05/22/18849 INDUSTRIAL ECONOMICS PROFESSOR: MARICHUY 05/22/18849 RPT#: [id number] DC DATE:05/21/18 STATUS: DIS IN [facility] [address] [place] [address] END OF REPORT
--- NOTE | ~2018-05-19 | MORECARE ---
CASE MANAGEMENT DISCHARGE SUMMARY PATIENT: SONALI PEREZ UNIT: [id number] ADM DATE: 05/19/18 AGE: 68 : 50 SEX: M ROOM/BED: D.9526 AUTHOR: KYLAH YEPEZ PHYSICIAN: REFERRING PHYSICIAN: WILIAN JACKSON MD DATE OF SERVICE: 05/19/18 Discharge Plan Patient Name: SONALI PEREZ Facility: [facility]:[place] : 1950 Planned Disposition: Home Anticipated Discharge Date: 05/21/18 Discharge Date: Expected LOS: 2 Initial Reviewer: [email or web address] Initial Review Date: 05/19/2018 Generated: 05/19/18 6:50 pm DCP- Discharge Planning Updated by [email or web address]: Emelia Nathan on 05/19/18 4:[address] Patient Name: SONALI PEREZ Admission Status: ER Accout number: [id number] Admission Date: 05-19-2018 : 1950 Admission Diagnosis: Attending: WILIAN JACKSON Current LOS: 1 Anticipated DC Date: 05-21-2018 Planned Disposition: Home Primary Insurance: [employer] PPO Discharge Planning Comments: CM met with patient and his to complete initial dc planning assessment. CM educated patient and on the CM role and verbal consent given by patient to complete assessment. Patient is hard of hearing and requested that CM speak to his wire. Patient lives at home with his . At discharge patient plans to return home and feels this is a safe discharge. His is unsure what will be needed at time of discharge. CM discussed home health and other community resources and informed her case management would assist her if services were needed. She stated the patient was diagnosed with multiple myeloma a year ago and opted for no chemo. He has only been followed by his PCP and has not been followed by oncology. CM will continue to follow and will assist as needed with dc plans/needs. See below for more assessment information. Is the patient Alert and Oriented? Yes * How many steps to enter\exit or inside your home? Ramp * PCP Dr. Alvarez * Pharmacy [facility] * Preadmission Environment Home with Family * ADLs Independent * Equipment Walker Wheelchair * List name and contact numbers for known caregivers / representatives who currently or will assist patient after discharge: Kimberly lucero - [phone] * Verbal permission to speak to the caregivers and representatives has been obtained from the patient. Yes * Community resources currently utilized None * Additional services required to return to the preadmission environment? No * Can the patient safely return to the preadmission environment? Yes * Has this patient been hospitalized within the prior 30 days at any hospital? No Head Of Academic Technology: Emelia Nathan DCPIA - Discharge Planning Initial Assessment Updated by [email or web address]: Emelia Nathan on 05/19/18 5:42 pm * Is the patient Alert and Oriented? Yes * How many steps to enter\exit or inside your home? Ramp * PCP Dr. Alvarez * Pharmacy [facility] * Preadmission Environment Home with Family * ADLs Independent * Equipment Walker Wheelchair * List name and contact numbers for known caregivers / representatives who currently or will assist patient after discharge: Kimberly lucero - [phone] * Verbal permission to speak to the caregivers and representatives has been obtained from the patient. Yes * Community resources currently utilized None * Additional services required to return to the preadmission environment? No * Can the patient safely return to the preadmission environment? Yes * Has this patient been hospitalized within the prior 30 days at any hospital? No Last DP export: 05/19/18 4:43 Patient Name: SONALI PEREZ Page [id number] at 1751 All edits/amendments must be made on the electronic document DICTATION DATE: 05/19/181749 LINE AND FRAME POLER: MARICHUY 05/19/181749 RPT#: [id number] DC DATE: STATUS: ADM IN [facility] [address] [place] [address] END OF REPORT
[2018-05-19 15:59] LABS: BASOPHILS 0.3 % (0-2); EOSINOPHILS 1.3 % (0-7); HEMATOCRIT 24.3 % (42.0-54.0); IMMATURE GRANULOCYTES 0.3 % (0-5); LYMPHOCYTES 28.7 % (15-50); MCH 21.2 pg (26.0-34.0); MCHC 29.6 g/dL (31.0-37.0); MCV 71.5 fL (80.0-100.0); MEAN PLATELET VOLUME 8.6 fL (7.4-10.4); MONOCYTES 6.4 % (2-11); PLATELET COUNT 245 10x3/uL (130-400); WBC 3.9 10x3/uL (4.8-10.8)
[2018-05-19 16:01] LABS: HEMOGLOBIN 7.2 g/dL (13.5-17.5)
[2018-05-19 16:09] LABS: APTT 26.2 SECONDS (22.8-39.4); INR 1.16 (0.85-1.17); PROTIME 14.4 SECONDS (11.6-15.0)
[2018-05-19 16:15] LABS: ALBUMIN 3.6 g/dL (3.4-5.0); ALKALINE PHOSPHATASE 60 U/L (46-116); ALT (SGPT) 13 U/L (10-68); BILIRUBIN - TOTAL 0.35 mg/dL (0.2-1.3); CALC OSMOLALITY 270 mosm/kg (275-300); CALCIUM 9.2 mg/dL (8.5-10.1); CARBON DIOXIDE 27.4 mmol/L (21.0-32.0); CHLORIDE - SERUM 96 mmol/L (98-107); CREATININE - SERUM 1.3 mg/dL (0.6-1.3); POTASSIUM - SERUM 3.7 mmol/L (3.5-5.1); PROTEIN - SERUM 7.7 g/dL (6.4-8.2); SODIUM 134 mmol/L (136-145); UREA NITROGEN 14 mg/dL (7-18); eGFR NON AFRICAN AMERICAN 58 mL/min (90-120)
[2018-05-19 16:25] LABS: GLUCOSE 126 mg/dL (74-106)
[2018-05-19 16:30] VITALS: BP 136/79
[2018-05-19 16:33] LABS: CKMB 0.9 U/L (0.0-3.6); CREATINE KINASE 25 UL (21-232)
[2018-05-19 16:35] LABS: TROPONIN-I 0.179 ng/mL (0.000-0.060)
[2018-05-19 17:00] VITALS: BP 126/74
[2018-05-19 17:54] LABS: TROPONIN-I 0.171 ng/mL (0.000-0.060)
[2018-05-19 18:30] VITALS: BP 121/78
[2018-05-19 21:28] VITALS: BP 125/62
[2018-05-19 23:19] LABS: CKMB 1.3 U/L (0.0-3.6); CREATINE KINASE 36 UL (21-232)
[2018-05-19 23:21] LABS: TROPONIN-I 0.207 ng/mL (0.000-0.060)
[2018-05-19 23:34] VITALS: BP 125/62; BMI 23.7
[2018-05-20 01:06] VITALS: BP 100/58
[2018-05-20 04:00] VITALS: BP 112/73
[2018-05-20 05:30] LABS: BASOPHILS 0.2 % (0-2); HEMATOCRIT 29.7 % (42.0-54.0); HEMOGLOBIN 9.3 g/dL (13.5-17.5); IMMATURE GRANULOCYTES 0.2 % (0-5); LYMPHOCYTES 25.2 % (15-50); MCH 23.1 pg (26.0-34.0); MCHC 31.3 g/dL (31.0-37.0); MCV 73.9 fL (80.0-100.0); MEAN PLATELET VOLUME 9.1 fL (7.4-10.4); MONOCYTES 9.3 % (2-11); NEUTROPHILS 64.1 % (40-80); PLATELET COUNT 237 10x3/uL (130-400); RBC 4.02 10x6/uL (4.20-6.10); RDW 19.6 % (11.5-14.5); WBC 5.1 10x3/uL (4.8-10.8)
[2018-05-20 05:52] LABS: ALBUMIN 3.3 g/dL (3.4-5.0); ALKALINE PHOSPHATASE 59 U/L (46-116); ALT (SGPT) 12 U/L (10-68); BILIRUBIN - TOTAL 0.76 mg/dL (0.2-1.3); CALC OSMOLALITY 269 mosm/kg (275-300); CALCIUM 8.6 mg/dL (8.5-10.1); CARBON DIOXIDE 27.2 mmol/L (21.0-32.0); CHLORIDE - SERUM 101 mmol/L (98-107); CKMB 1.3 U/L (0.0-3.6); CREATINE KINASE 35 UL (21-232); GLUCOSE 99 mg/dL (74-106); PROTEIN - SERUM 7.3 g/dL (6.4-8.2); SODIUM 135 mmol/L (136-145); UREA NITROGEN 12 mg/dL (7-18); eGFR NON AFRICAN AMERICAN 79 mL/min (90-120)
[2018-05-20 05:59] LABS: POTASSIUM - SERUM 4.5 mmol/L (3.5-5.1); TROPONIN-I 0.321 ng/mL (0.000-0.060)
[2018-05-20 08:00] VITALS: BP 123/72
[2018-05-20 09:00] VITALS: BMI 23.6
[2018-05-20 12:52] VITALS: BP 99/57
[2018-05-20 14:15] VITALS: Ht 177.8 cm; Wt 74.8 kg
[2018-05-20 16:36] LABS: % SATURATION 16 % (15-55); IRON 52 ug/dl (35-150); TOTAL IRON BIND CAPACITY 314 ug/dl (260-445); UNSAT IRON BIND CAPACITY 262 ug/dl (150-375)
[2018-05-20 16:51] LABS: FERRITIN 18 ng/mL (3-244); LDH 422 U/L (85-227)
[2018-05-20 17:16] VITALS: BP 103/42
[2018-05-20 20:15] VITALS: BP 96/59
[2018-05-21 01:16] VITALS: BP 106/52
[2018-05-21 05:51] VITALS: BP 104/63
[2018-05-21 05:58] LABS: BASOPHILS 0.3 % (0-2); EOSINOPHILS 1.4 % (0-7); HEMOGLOBIN 9.6 g/dL (13.5-17.5); IMMATURE GRANULOCYTES 0.3 % (0-5); LYMPHOCYTES 43.1 % (15-50); MCH 22.9 pg (26.0-34.0); MEAN PLATELET VOLUME 9.2 fL (7.4-10.4); MONOCYTES 10.8 % (2-11); NEUTROPHILS 44.1 % (40-80); PLATELET COUNT 227 10x3/uL (130-400); RBC 4.19 10x6/uL (4.20-6.10); RDW 19.7 % (11.5-14.5)
[2018-05-21 06:06] LABS: WBC 3.7 10x3/uL (4.8-10.8)
[2018-05-21 07:17] LABS: ANION GAP 15.5 mmol/L (8-16); CALCIUM 8.6 mg/dL (8.5-10.1); CARBON DIOXIDE 23.8 mmol/L (21.0-32.0); CREATININE - SERUM 1.1 mg/dL (0.6-1.3); POTASSIUM - SERUM 4.3 mmol/L (3.5-5.1)
[2018-05-21 08:20] VITALS: BP 106/44
[2018-05-23 11:19] LABS: FOLATE (FOLIC ACID) - SERUM 3.7 ng/mL (>3.0)
== END 2018-05-21 16:58 | disposition home or self-care (01) | DRG 841 ==
LOC: D.ER 15:29 → D.M2 17:07
PROVIDERS: Family Medicine; Internal Medicine Nephrology
DX: C90.00 Multiple myeloma not having achieved remission (principal); I25.110 Atherosclerotic heart disease of native coronary artery with unstable angina pectoris; N17.9 Acute kidney failure, unspecified; D50.9 Iron deficiency anemia, unspecified; D63.0 Anemia in neoplastic disease; I25.5 Ischemic cardiomyopathy; I11.0 Hypertensive heart disease with heart failure; I50.9 Heart failure, unspecified; F03.90 Unspecified dementia, unspecified severity, without behavioral disturbance, psychotic disturbance, mood disturbance, and anxiety; Z86.73 Personal history of transient ischemic attack (TIA), and cerebral infarction without residual deficits; E78.5 Hyperlipidemia, unspecified

== ENCOUNTER 2018-08-26 23:55 | Observation (INO) | payer OTHER, MEDICARE ==
[~2018-08-26] VITALS: Ht 177.8 cm; Wt 90.9 kg
--- NOTE | ~2018-08-26 | HEMODYNAMI ---
PATIENT:SONALI PEREZ MEDICAL RECORD: [id number] : 50 LOCATION:D.MS [id number] ADMISSION DATE: 08/27/18 Generatedon:08/27/201811:53 Patient name: SONALI PEREZ Patient #: [id number] SSN: : 1950 Date of study: 08/27/2018 Page: Of Hemodynamic Procedure Report Patient Data Patient Demographics Procedure consent was obtained First Name: SONALI Gender: Male Last Name: CHRIS : 1950 [facility] Initial: [place] Age: 68 year(s) Patient #: [id number] Race: Unknown Additional ID: [id number] Contact details [address]: [address] [place] [address] State: [place] City: [place] Zip code: [address] Past Medical History Allergies Allergen Reaction Date Comments Reported Other allergy 01/16/2018 morphine Other allergy 08/27/2018 DILAUDID, MORPHINE, WELLBUTRIN Admission Admission Data Admission Date: 08/27/2018 Admission Time: 0:52 Room #: D.2226 Height (in.): 70 BSA: 2.09 (m2) Height (cm.): 177.8 BMI: 28.75 (kg/m2) Weight (lbs.): 200.4 Weight (kg.): 90.9 Lab Results Lab Result Date: 08/27/2018 Lab Result Time: 0:00 Biochemistry Name Units Result Min Max BUN mg/dl 15 --(--*-)-- 7 18 Creatinine mg/dl 1.3 --(---*)-- 0.6 1.3 CBC Name Units Result Min Max Hemoglobin g/dl 8.1 *-(----)-- 13.5 17.5 Procedure Procedure Types Cath Procedure Diagnostic Procedure LHC Coronaries only PCI Procedure Coronary Stent Coronary Stent Initial Procedure Description Procedure Date Procedure Date: 08/27/2018 Procedure Start Time: 11:28 Procedure End Time: 11:48 Procedure Staff Name Function Stoney Grider MD Performing Physician Frederick ZARATE Monitor Ariane Gibbons RT Scrub Marisa Greenfield RN Nurse Procedure Data Cath Procedure Fluoroscopy Diagnostic fluoroscopy Total fluoroscopy Time: 6 time: 6 min min Diagnostic fluoroscopy Total fluoroscopy dose: 935 dose: 935 mGy mGy Contrast Material Contrast Material Type Amount (ml) Isovue 300 67 Entry Location Entry Primary Successful Side Size Upsize Upsize Entry Closure Story ccessful Closure Location (Fr) 1 (Fr) 2 (Fr) Remarks Device Remarks Radial Right 6 Fr Mechanical artery Short Compression Estimated blood loss: 10 ml Diagnostic catheters Device Type Used For End Catheter Placement DIAGNOSTIC [place] 110cm 5 Procedure Fr catheter ([id number]) Procedure Complications No complications Procedure Medications Medication Administration Route Dosage Effient P.O. 10 mg Zofran I.V. 4 mg Versed I.V. 1 mg Fentanyl I.V. 50 mcg Radial Cocktail I.A. 1 syringe (Verapomil 2mg/Nitro 400mcg/Heparin 1500units) Versed I.V. 1 mg Fentanyl I.V. 50 mcg Heparin Bolus I.V. 4000 units Oxygen etCO2 Nasal cannula 2 l/min Lidocaine 2% added to field 20 Heparin Flush Bag added to field 2 bags (1000units/500ml NS) 0.9% NaCl I.V. 100 ml/hr Hemodynamics Rest BSA: 2.09 (m2) HGB: 8.1 (g/dl) O2 Consumption: Estimated: 251.91 (ml/min) O2 Con sumption indexed: Estimated:120.53 (ml/min/m) Heart Rate: 82 (bpm) Pressure Samples Time Site Value (mmHg) Purpose Heart Use Rate(bpm) 11:36 AO 85/48(63) Snapshot 82 Snapshots Pre Cath Intra NCS Post Cath Vital Signs Time Heart Resp SPO2 etCO2 NIBP Rhythm Pain Sedation Rate (ipm) (%) (mmHg) (mmHg) Status Level (bpm) 11:19:42 62 14 100 28.8 99/62(88) NSR 0 (11) 10(A) , No pain 11:23:48 72 19 100 30.3 117/59(89) NSR 0 (11) 10(A) , No pain 11:29:04 85 20 95 35.6 112/69(93) NSR 0 (11) 9(A) , No pain 11:33:14 89 20 99 9.8 99/64(80) NSR 0 (11) 9(A) , No pain 11:37:21 81 14 100 17.4 97/57(82) NSR 0 (11) 9(A) , No pain 11:41:25 83 12 100 30.3 96/66(79) NSR 0 (11) 9(A) , No pain 11:45:31 82 19 99 18.9 94/59(76) NSR 0 (11) 10(A) , No pain Medications Time Medication Route Dose Verified Delivered Reason Not es Effectiveness by by 11:15:20 Oxygen etCO2 2 l/min Stoney Cunningham used for Nasal Cheo Greenfield RN procedure cannula 11:15:31 Lidocaine 2% added 20ml Stoney Lua for local to vial Cheo Grider MD anesthetic field 11:15:37 Heparin Flush added 2 bags Stoney Lua used for Bag to Cheo Grider MD procedure (1000units/500ml field NS) 11:15:45 0.9% NaCl I.V. 100 Stoney Cunningham Per physician ml/hr Cheo Greenfield RN 11:18:10 Effient P.O. 10 mg Stoney Cunningham for pts daily Cheo Greenfield RN antiplatelet dose therapy 11:19:11 Zofran I.V. 4 mg Stoney Cunningham Per physician pt gets Cheo Greenfield RN nauseated with medications for sedation 11:24:37 Versed I.V. 1 mg Stoney Cunningham for sedation Cheo Greenfield RN 11:24:44 Fentanyl I.V. 50 mcg Stoney Cunningham for sedation Cheo Greenfield RN 11:30:22 Radial Cocktail I.A. 1 Stoney Lua for (Verapomil syringe Cheo Grider MD vasodilation 2mg/Nitro 400mcg/Heparin 1500units) 11:30:31 Versed I.V. 1 mg Stoney Cunningham for sedation Cheo Greenfield RN 11:30:38 Fentanyl I.V. 50 mcg Stoney Cunningham for sedation Cheo Greenfield RN 11:38:26 Heparin Bolus I.V. 4000 Stoney Cunningham for jenny ified units Cheo Greenfield RN anticoagulation with dr grider Procedure Log Time Note 10:45:25 Patient Height : 70 inches 10:45:32 Patient Weight : 200.4 lbs 10:45:38 Signed procedure consent form obtained from patient. 10:45:40 Diagnostic Cath status Elective 10:45:41 Time tracking: Regular hours (M-F 7:00 - 5:00) :45 Plan of Care:Hemodynamics will remain stable., Cardiac rhythm will remain stable., Comfort level will be maintained., Respiratory function will remain adequate., Patient/ family verbilizes understanding of procedure., Procedure tolerated without complication., Recovers from procedure without complications.. :46 Lab Result : BUN 15 mg/dl : Lab Result : Creatinine 1.3 mg/dl : Lab Result : Hemoglobin 8.1 g/dl 10::57 DR. GRIDER AWARE OF LAB 10:55:09 Frederick ZARATE(R) sent for patient. Start room use. 11:02:46 Patient allergic to Other allergyDILAUDID, MORPHINE, WELLBUTRIN 11:10:34 Patient received from Med/Surg to CCL 1 Alert and oriented. Tansferred to table in Supine position. 11:15:20 Oxygen 2 l/min etCO2 Nasal cannula was administered by Marisa Greenfield RN; used for procedure; 11:15:31 Lidocaine 2% 20ml vial added to field was administered by Stoney Grider MD; for local anesthetic; ::37 Heparin Flush Bag (1000units/500ml NS) 2 bags added to field was administered by Stoney Grider MD; used for procedure; 11:15:45 0.9% NaCl 100 ml/hr I.V. was administered by Marisa Greenfield RN; Per physician; 11:18:10 Effient 10 mg P.O. was administered by Marisa Greenfield RN; for antiplatelet therapy; pts daily dose 11:18:37 Vital chart was started 11:19:11 Zofran 4 mg I.V. was administered by Marisa Greenfield RN; Per physician; pt gets nauseated with medications for sedation 11::35 Warm blankets applied, and yumiko hugger turned on for patient comfort. 11::35 Correct patient and procedure confirmed by team. 11:22:36 ECG and BP/O2 sat monitors applied to patient. 11::38 Baseline sample Acquired. ::44 Rhythm: sinus rhythm ::45 Full Disclosure recording started 11::48 H&P Date Dictated: 08/27/2018 Within 30 days and on chart.. 11:22:50 Pre-procedure instructions explained to patient. 11:22:50 Pre-op teaching completed and patient verbalized understanding. 11:22:52 Family in patients room. 11:22:53 Patient NPO since Midnight. 11:22:55 Is the patient allergic to Iodine/contrast media? No. 11:22:56 Is patient on blood thinner?Yes 11:22:58 ACC The patient was administered the following blood thiners within the last 24 hours: ACCEffient 11:23:02 Patient diabetic? No. 11:23:04 Previous problem with sedation/anesthesia? No ? 11:23:05 Snore? Yes 11:23:06 Sleep apnea? No 11:23:07 Deviated septum? No 11:23:12 Opens mouth fully? Yes 11:23:13 Sticks out tongue? Yes 11:23:21 Airway obstruction? Yes COPD 11:23:26 Dentures? Yes OUT 11:23:31 Pre procedure: right dorsailis pedis pulse 1+ Palpable, but thready & weak; easily obliterated 11:23:33 Modified Patrick's test Ulnar < 7 seconds 11:23:34 Patient pain scale 0/10 ?. 11:23:39 IV patent on arrival in left forearm with 0.9% NaCl at [facility]. 11:23:43 Lab results completed and on chart. 11:23:53 Right Radial & Right Groin area was prepped with chlora-prep and draped in sterile fashion 11:23:55 Alarms reviewed by R. N. 11:23:56 Sharps counted by scrub and verified by R.N. 11:24:01 Use device set Radial Dx or PCI 11:24:02 Tegaderm 4 x 4 (1626W) opened to sterile field. 11:24:03 ACIST Manifold (08707) opened to sterile field. 11:24:04 ACIST Hand Control (48356) opened to sterile field. 11:24:05 ACIST Syringe (36759) opened to sterile field. 11:24:05 Medline Cath Pack ([id number]) opened to sterile field. 11:24:05 Bag Decanter (2002S) opened to sterile field. 11:24:06 DIAGNOSTIC WIRE .035 260cm J wire (004807) opened to sterile field. 11:24:07 MBrace Wrist Support (823935371) opened to sterile field. 11:24:08 SHEATH 6FR Slender (89-7231) opened to sterile field. 11:24:17 --------ALL STOP TIME OUT------ 11:24:18 Final Timeout: patient, procedure, and site verified with staff and physician. All members of the team are in agreement. 11:24:20 Right Radial & Right Groin site verified by team. 11:24:21 Physical assessment completed. ASA score P 2 - A patient with mild systemic disease as per Stoney Grider MD. 11::24 Sedation plan: IV Moderate Sedation Medication:Versed, Fentanyl 11::37 Versed 1 mg I.V. was administered by Marisa Greenfield RN; for sedation; ::44 Fentanyl 50 mcg I.V. was administered by Marisa Greenfield RN; for sedation; 11::44 Procedure started. 11:28:48 Local anesthetic to right radial artery with Lidocaine 2% by Stoney Grider MD.INITIAL ACCESS ONLY 11:30:22 Radial Cocktail (Verapomil 2mg/Nitro 400mcg/Heparin 1500units) 1 syringe I.A. was administered by Stoney Grider MD; for vasodilation; 11:30:24 A 6 Fr Short sheath was inserted into the Right Radial artery 11:30:28 A DIAGNOSTIC [place] 110cm 5 Fr catheter ([id number]) was advanced over the wire and used for Procedure. 11:30:31 Versed 1 mg I.V. was administered by Marisa Greenfield RN; for sedation; 11:30:38 Fentanyl 50 mcg I.V. was administered by Marisa Greenfield RN; for sedation; 11:34:05 RCA angiography performed. 11:34:58 Catheter exchanged over wire. 11:35:03 Use device set [facility] PCI 11:35:07 GUIDE 6FR XBLAD 3.5 catheter ([id number]) opened to sterile field. 11:35:24 6 Fr XBLAD 3.5 guide catheter was inserted over the wire 11:36:21 LCA angiography performed. 11:37:02 CHOICE PT Extra Support 182cm wire ([id number]) opened to sterile field. 11:37:05 INFLATOR Merit KongixCompak (NP3166) opened to sterile field. 11:38:26 Heparin Bolus 4000 units I.V. was administered by Marisa Greenfield RN; for anticoagulation; verified with dr grider 11:39:47 CPTXS wire advanced. 11:40:01 Wire advanced across lesion. 11:41:32 Inflate balloon Inflation number: 1 A EUPHORA 2.5 x 15 Balloon ([id number]) was prepped and advanced across the Prox CX, then inflated to 21 MARGARITA for 0:10 (min:sec). 11:42:05 Balloon removed over the wire. 11:43:50 Place stent Inflation Number: 2 A INTEGRITY RX 3.5 x 09 stent ([id number]) was prepped and advanced across the Prox CX. The stent was deployed at 17 MARGARITA for 0:10 (min:sec). 11:44:54 Stent catheter was removed intact over wire. 11:44:55 Wire removed. 11:44:56 Guide catheter removed. 11:45:30 TR BAND Standard ([id number]) opened to sterile field. 11:45:40 Sheath removed intact; hemostasis achieved with Mechanical Compression to the Right Radial artery. 11:45:42 Procedure ended.(Physican Out) 11:46:44 Fluoroscopy time 06.00 minutes. 11:46:48 Fluoroscopy dose: 935 mGy 11:46:48 Flurop Dose total: 935 11:46:51 Contrast amount:Isovue 300 67ml. 11:46:53 Sharps counted by scrub and verified by R.N. 11:46:58 TR band inflated with 11cc of air. 11:47:06 Insertion/operative site no bleeding no hematoma. 11:47:08 Post Procedure Pulses reassessed and unchanged 11:47:11 Post-procedure physical assessment completed. ASA score P 2 - A patient with mild systemic disease as per Stoney Grider MD. 11:47:13 Post procedure rhythm: unchanged. 11:47:16 Estimated blood loss: 10 ml 11:47:18 Post procedure instruction explained to patient.Patient verbalizes understanding. 11:47:18 Patient needs reinforcement of post procedure teaching. 11:47:25 Procedure type changed to Cath procedure, Diagnostic procedure, LHC, Coronaries only, PCI procedure, Coronary Stent, Coronary Stent Initial 11:47:44 Procedure and supply charges have been captured, reviewed, submitted and are correct. 11:47:47 Procedure Complication : No complications 11:47:52 Vital chart was stopped 11:47:52 See physician's report for complete and final results. 11:47:56 Report given to Med/Surg. 11:47:59 Patient transfered to Med/Surg with Bed. 11:48:01 Procedure ended. 11:48:01 Full Disclosure recording stopped 11:52:36 End room use (Document Last) Intervention Summary Intervention Notes Time ActionType Lesion and Equipment Action# Pressure Duration Attributes Used 11:41:32 Inflate Prox CX EUPHORA 2.5 1 21 00:10 balloon x 15 Balloon ([id number]) 11:43:50 Place stent Prox CX INTEGRITY RX 2 17 00:10 3.5 x 09 stent ([id number]) Device Usage Item Name Manufacture Quantity Catalog Number Hospital Part Current Mini mal Lot# / Charge Number Stock Stock Serial# Code Tegaderm 4 x 3M 1 1626W 332002 681392 493873 5 4 (1626W) ACIST Acist 1 43711 770309 602405 658246 5 Manifold Medical (58645) Systems Inc ACIST Hand Acist 1 27059 685851 717949 846997 5 Control Medical (86422) Systems Inc ACIST Acist 1 59988 794673 348670 613317 20 Syringe Medical (42538) Systems Inc Medline Cath Medline 1 [id number] 178669 50904 726181 5 Pack ([id number]) Bag Decanter Microtek 1 2001S 808047 94903 909924 5 (2001S) Medical Inc. DIAGNOSTIC St Remigio 1 941715 350768 496421 907156 30 WIRE .035 260cm J wire (087364) MBrace Wrist Advanced 1 140-0250-00 059280 75058 851519 5 Support Vascular (615322103) Dynamics SHEATH 6FR Terumo 1 [id number] 848032 687729 547743 5 Slender (80-1060) DIAGNOSTIC Terumo 1 40-2799 666463 259844 688370 5 [place] 110cm 5 Fr catheter (183940) GUIDE 6FR Cardinal 1 14782329 932557 790186 328718 10 XBLAD 3.5 Health catheter (33419876) CHOICE PT [place] 1 [id number] 783287 722525 684251 5 Extra Scientific Support 182cm wire ([id number]) INFLATOR Merit 1 II5299 493802 676491 202654 15 Merit Medical BasixCompak (ZL5151) EUPHORA 2.5 Medtronic 1 [id number] 163575 664181 046578 5 [id number] x 15 Balloon ([id number]) INTEGRITY RX Medtronic 1 [id number] 244034 422622 705696 5 [id number] 3.5 x 09 stent ([id number]) TR BAND Terumo 1 [id number] 976850 167376 304163 40 Standard ([id number]) Signature Audit [place] Stage Time Signature Unsigned Intra-Procedure 08/27/2018 Frederick Benito 11:53:13 AM RT(R) Signatures Monitor : Frederick Benito RT Signature : Date : Time : [place] [address] [place] [address]
[2018-08-27 00:15] LABS: BASOPHILS 0.2 % (0-2); EOSINOPHILS 1.5 % (0-7); HEMATOCRIT 26.9 % (42.0-54.0); HEMOGLOBIN 8.1 g/dL (13.5-17.5); LYMPHOCYTES 40.4 % (15-50); MCH 22.6 pg (26.0-34.0); MCHC 30.1 g/dL (31.0-37.0); MCV 75.1 fL (80.0-100.0); MEAN PLATELET VOLUME 9.1 fL (7.4-10.4); MONOCYTES 9.2 % (2-11); NEUTROPHILS 48.7 % (40-80); PLATELET COUNT 259 10x3/uL (130-400); RBC 3.58 10x6/uL (4.20-6.10); RDW 18.1 % (11.5-14.5); WBC 4.6 10x3/uL (4.8-10.8)
[2018-08-27 00:31] LABS: ALBUMIN 3.6 g/dL (3.4-5.0); ANION GAP 10.7 mmol/L (8-16); BILIRUBIN - TOTAL 0.33 mg/dL (0.2-1.3); CALCIUM 8.7 mg/dL (8.5-10.1); CARBON DIOXIDE 27.2 mmol/L (21.0-32.0); CREATININE - SERUM 1.3 mg/dL (0.6-1.3); POTASSIUM - SERUM 3.9 mmol/L (3.5-5.1)
[2018-08-27 00:48] LABS: TROPONIN-I 3.386 ng/mL (0.000-0.060)
[2018-08-27 01:14] VITALS: BP 107/65
--- NOTE | 2018-08-27 01:27 | NUR ---
ARRIVED ON FLOOR VIA STRETCHER. SELF AMBULATED TO BED. ORIENTED TO ROOM ANC CALL LIGHT. IV TO LEFT FA PATENT AND INFUSING PER ORDER. SPOUSE AT SIDE. PT C/O OF ITCHING.
[2018-08-27 01:37] LABS: APPEARANCE CLEAR (CLEAR); BILIRUBIN NEGATIVE (NEGATIVE); COLOR YELLOW (YELLOW); GLUCOSE NEGATIVE (NEGATIVE); KETONE NEGATIVE (NEGATIVE); NITRITE NEGATIVE (NEGATIVE); PROTEIN NEGATIVE (NEGATIVE); SPECIFIC GRAVITY 1.005 (1.005-1.020); UROBILINOGEN NORMAL (NORMAL)
[2018-08-27 01:44] VITALS: BP 93/62; Ht 177.8 cm; Wt 90.9 kg
--- NOTE | 2018-08-27 01:51 | NUR ---
ADMISSION ASSESSMENT COMPLETE. TELEMETRY PLACED.
[2018-08-27] MEDS ORDERED: NORCO 10-325 TA1 TAB PO (02:01)
[2018-08-27] MEDS ORDERED: NITROSTAT0.4 MG SL (02:07)
--- NOTE | 2018-08-27 02:59 | NUR ---
PT STILL WITH C/O ITCHING, NOW SEVERELY. BENADRYL 25 MG PO GIVEN. PT IS ALLERGIC TO MORPHINE WITH REPORTED ISSUE OF ITCHING. DILAUDID ADDED TO ALLERGY LIST.
[2018-08-27 03:00] VITALS: BP 104/45
--- NOTE | 2018-08-27 06:45 | NUR ---
DR ALVA PAGED ABOUT PT NEED FOR A DIFFERENT PAIN MEDICATION DUE TO ALLERGY TO DILAUDID.
[2018-08-27 09:21] VITALS: BP 106/60
--- NOTE | 2018-08-27 09:59 | NUR ---
LAYING IN BED, EVEN UNLABORED BREATHING, NO C/O CHEST PAIN OR DISCOMFORTS, WILL REMAIN NPO UNTIL IS MOVED DOWN TO FINANCIAL INVESTIGATOR PER DR. ALVA. PT VERBALIZES UNDERSTANDING. DENIES ANY OTHER NEEDS OR DISCOMFORTS, BED LOWERED AND LOCKED, CALL LIGHT WITHIN REACH. CPOC
--- NOTE | 2018-08-27 13:57 | NUR ---
RESTING QUIETLY IN BED WITH EYES CLOSED. FAMILY AT BEDSIDE. DENIES NEEDS.
[2018-08-27 16:56] VITALS: BP 102/61
--- NOTE | 2018-08-29 10:23 | DS ---
PATIENT:SONALI PEREZ :50 MEDICAL RECORD: [id number] DISCHARGE SUMMARY ADMISSION DATE: 08/27/18 DISCHARGE DATE: 08/27/18 DATE OF SERVICE: 08/27/2018 DATE OF DISCHARGE: 08/27/2018 DISCHARGE DIAGNOSES. 1. Unstable angina. 2. Coronary artery disease. 3. Percutaneous transluminal coronary angioplasty stent of the left circumflex this admission. HOSPITAL COURSE: This is a gentleman who presents with unstable anginal symptomatology, found to have significant disease of the ostium of the circumflex, underwent successful PTCA and stent of this. Discharged home to continue his Effient. Will follow up in 1 week for PTCA and stent of the RCA. TRANSINT:[id number] Voice Confirmation ID: [id number] DOCUMENT ID: [id number] NOEMY ALVA MD at 1023 CC: [id number] DICTATION DATE: 08/27/18 1153 SHIP BOAT OR BARGE MATE: 08/27/18 2352 DIS IN 08/27/18 [place] [id number] [place] [address]
--- NOTE | 2018-08-29 10:23 | EC ---
PATIENT:SONALI PEREZ DATE OF SERVICE: 08/27/18 SEX: M MEDICAL RECORD: [id number] DATE OF : 50 LOCATION:D.MS Nicole AGE OF PATIENT: 68 ADMISSION DATE: 08/27/18 REFERRING PHYSICIAN: INTERPRETING PHYSICIAN: NOEMY GRIDER MD ECHOCARDIOGRAM REPORT ECHO CHARGES 4 ECHO COMPLETE Date: 08/27/18 CLINICAL DIAGNOSIS: CP ECHOCARDIOGRAPHIC MEASUREMENTS (adult normal given) AC root (d.<3.7cm) 4.4 cm LV Septum d (<1.2 cm> 1.4 cm Valve Excursion 2.0 cm LV Septum (systole) 1.6 cm Left Atria (s.<4.0cm> 3.2 cm LVPW d(<1.2cm) 1.2 cm RV (d.<2.3cm) 2.3 cm LVPW (sytole) 1.3 cm LV diastole(<5.6CM) 5.3 cm MV E-F(>70mm/sec) cm LV systole 4.4 cm LVOT Diameter 1.9 cm MV exc.(>10mm) cm Est.ejection fraction (50-75%) % DOPPLER: LVIT cm/sec A 88 cm/sec E 89 cm/sec LA cm/sec RVSP 25.2 mmHg LVOT 91 cm/sec AOP1/2T m/s Asc. Ao 96 cm/sec RVOT 68 cm/sec RA cm/sec PA 78 cm/sec AV Gradient Peak 3.7 mmHg AV Mean 2.3 mmHg AV Area 2.6 cm MV Gradient Peak 5.5 mmHg MV Mean 2.0 mmHg MV Area cm COMMENTS: Research Director: Pradeep [facility] Electrical Accessories I Assembler: 1 Dr. Grider TAPE# PACS Pericardial Effusion N DATE OF SERVICE: 08/27/2018 PROCEDURE: Echocardiogram. FINDINGS: 1. Left ventricular chamber size is within normal limits. Left ventricular systolic function is normal. Overall ejection fraction estimated at 55%. 2. Left atrium, right atrium, and right ventricle chamber sizes are within normal limits. 3. Valvular structures have normal structure and motion. ECHOCARDIOGRAM REPORT [id number] SONALI PEREZ 4. Doppler interrogation reveals mild mitral regurgitation, mild tricuspid regurgitation, no other valvular insufficiency or stenosis. Pulmonary systolic pressure is estimated at 25 mmHg. 5. No evidence of pericardial effusion or left ventricular thrombus. TRANSINT:[id number] Voice Confirmation ID: [id number] DOCUMENT ID: [id number] NOEMY GRIDER MD at 1023 CC: [id number] DICTATION DATE: 08/28/18 1144 PASSENGER LOCOMOTIVE ENGINEER: 08/28/18 1301 DIS IN 08/27/18 [place] [id number] [place] [id number]
--- NOTE | 2018-08-29 10:23 | HP ---
PATIENT: SONALI PEREZ MEDICAL RECORD: [id number] ACCOUNT: [id number] LOCATION:D.MS [id number] : 50 ADMISSION DATE: 08/27/18 PCP: ELI PICKENS DO HISTORY AND PHYSICAL EXAMINATION DIAGNOSES: 1. Unstable angina. 2. Coronary artery disease. 3. Previous multivessel PTCA stent. 4. Hyperlipidemia. HISTORY OF PRESENT ILLNESS: This is a gentleman with a past history of coronary artery disease. Last cardiac intervention was the last summer with 3-vessel PTCA stent. He now presents with 2 days of increasing anginal symptomatology. His EKG has nonspecific ST-T abnormalities. He continues to have episodes of pain requiring IV medication. His troponin is normal. PHYSICAL EXAMINATION: GENERAL APPEARANCE: Well-nourished, well-developed, appears stated age. Level of distress, comfortable. PSYCHIATRIC: Mental status, alert, normal affect. Orientation, oriented to time, place and person. EYES: Lids and conjunctiva, noninjected. No discharge, no pallor. ENT: Lips, teeth, gums, normal dentition. Oropharynx, no cyanosis, no pallor. NECK: Carotid arteries, bilateral normal upstroke, no bruits, no thrills. JUGULAR VEINS: No jugular venous pressure or distention. CERVICAL LYMPH NODES: Nontender, nonenlarged. THYROID: Not enlarged. Nontender. No nodules. LUNGS: Respiratory effort, unlabored. CHEST: Normal curvature. No thoracic deformity. No chest wall tenderness. Percussion, resonant. Auscultation, clear. No wheezes, no rales, no rhonchi. CARDIOVASCULAR: Precordial exam, nondisplaced. No heaves or pericardial thrills. Rate and rhythm, regular. Heart sounds, normal S1, normal S2. No S3, no gallop, no rub. Systolic murmur, not heard. Diastolic murmur, not heard. EXTREMITIES: No cyanosis, no edema. Peripheral pulses, full and equal in all extremities, except as noted. No bruits appreciated. ABDOMEN: Soft, nondistended. Normal aorta. No bruit. Nontender. No masses. Liver, nontender, no hepatomegaly. Spleen, nontender, no splenomegaly. MUSCULOSKELETAL: No joint tenderness. No joint swelling. No erythema. NEUROLOGICAL: Normal gait, normal strength, normal tone. SKIN: Warm and dry. OVERALL IMPRESSION: Chest pain compatible with angina, unstable fashion. At this time, we will proceed with coronary angiography. Further care depends upon findings of the angiography. TRANSINT:[id number] Voice Confirmation ID: [id number] DOCUMENT ID: [id number] HISTORY AND PHYSICAL [id number] SONALI PEREZ JEFFREY MD at 1023 CC: [id number] DICTATION DATE: 08/27/18 1025 CHECK INSPECTOR: 08/27/18 1120 DIS IN 08/27/18 [facility] [address] [place] [address]
--- NOTE | 2018-08-29 10:23 | OP ---
PATIENT NAME: SONALI PEREZ MEDICAL RECORD: [id number] :50 LOCATION:D.MS [id number] ADMISSION DATE:08/27/18 SURGEON: NOEMY ALVA MD DATE OF OPERATION: 08/27/2018 PROCEDURES: 1. PTCA stent left circumflex. 2. Left heart catheterization. 3. Selective coronary angiography. INDICATION: Non-Q-wave myocardial infarction. PROCEDURE IN DETAIL: After informed consent was obtained and after a detailed description of risks, benefits as well as alternative therapies, the patient elected to proceed with angiogram and angioplasty. The right radial area was prepped and draped in normal sterile fashion. Right radial artery was cannulated via modified Seldinger technique with placement of 6-Amharic sheath. All catheters exchanged through this sheath. FINDINGS: Left ventriculogram was not performed secondary to inability to cross the aortic valve. SELECTIVE CORONARY ANGIOGRAPHY: 1. Left main is with no significant angiographic disease. 2. Left anterior descending has previously placed stents, these are widely patent with no significant restenosis. No disease elsewise set the LAD or its branches. 3. Left circumflex has previously placed stents, these are widely patent with no significant restenosis; however, at the ostium there is 95% stenosis. 4. The right coronary has a 90% stenosis in the distal vessel. PTCA STENT OF THE LEFT CIRCUMFLEX: The stent used was a 3.5 x 9-mm Integrity. Result was 0% residual stenosis. OVERALL IMPRESSION: Successful PTCA stent of the left circumflex going from 95% initial stenosis to 0% residual. PLAN: PTCA stent of the RCA in the near future. TRANSINT:[id number] Voice Confirmation ID: [id number] DOCUMENT ID: [id number] NOEMY ALVA MD at 1023 CC: [id number] DICTATION DATE: 08/27/18 1155 WOODWIND INSTRUMENT REPAIRER: 08/27/18 1213 DIS IN 08/27/18 [address] [id number] [place] [address]
--- NOTE | 2018-08-31 11:11 | MORECARE ---
CASE MANAGEMENT DISCHARGE SUMMARY PATIENT: SONALI PEREZ UNIT: [id number] ADM DATE: 08/27/18 AGE: 68 : 50 SEX: M ROOM/BED: D.2226 AUTHOR: KYLAH YEPEZ PHYSICIAN: REFERRING PHYSICIAN: NOEMY ALVA MD DATE OF SERVICE: 08/31/18 Discharge Plan Patient Name: [facility]ONALI PEREZ [facility] [facility] 1950 Planned Disposition: Anticipated Discharge Date: Discharge Date: 08/27/2018 Expected LOS: 0 Initial Reviewer: [email or web address] Initial Review Date: 08/31/2018 Generated: 08/31/18 12:10 pm Patient Name: SONALI PEREZ Page [id number] at 1111 All edits/amendments must be made on the electronic document DICTATION DATE: 08/31/18 1110 SUPERVISOR RESIDENTIAL: MARICHUY 08/31/18 1110 RPT#: [id number] DC DATE:08/27/18 STATUS: DIS IN [facility] [address] [place] [address] END OF REPORT
== END 2018-08-27 18:23 | disposition home or self-care (01) ==
LOC: D.ER 23:55 → OBSVTIME 08-27 00:52 → D.MS 08-27 00:52
PROVIDERS: Emergency Medicine; ADMIT Internal Medicine Interventional Cardiology
DX: I21.4 Non-ST elevation (NSTEMI) myocardial infarction (principal); I25.110 Atherosclerotic heart disease of native coronary artery with unstable angina pectoris

== ENCOUNTER 2018-08-30 08:19 | Outpatient (CLI) | payer OTHER, MEDICARE ==
[~2018-08-30] VITALS: Ht 177.8 cm; Wt 79.5 kg
--- NOTE | ~2018-08-30 | HEMODYNAMI ---
PATIENT:SONALI PEREZ MEDICAL RECORD: [id number] : 50 LOCATION:DJC ADMISSION DATE: 08/30/18 Generatedon:08/30/201810:49 Patient name: SONALI PEREZ Patient #: [id number] SSN: : 1950 Date of study: 08/30/2018 Page: Of Hemodynamic Procedure Report Patient Data Patient Demographics Procedure consent was obtained First Name: SONALI Gender: Male Last Name: CHRIS : 1950 [facility] Initial: J Age: 68 year(s) Patient #: [id number] Race: Unknown Additional ID: [id number] Contact details [address]: [address] [place] [address] State: [place] City: [place] Zip code: [address] Past Medical History Allergies Allergen Reaction Date Comments Reported Other allergy 01/16/2018 morphine Other allergy 08/27/2018 DILAUDID, MORPHINE, WELLBUTRIN Other allergy 08/30/2018 Dilaudid, Morphine, Plavix, Bupropion Admission Admission Data Admission Date: 08/30/2018 Admission Time: 8:19 Height (in.): 60 BSA: 1.76 (m2) Height (cm.): 152.4 BMI: 34.18 (kg/m2) Weight (lbs.): 175 Weight (kg.): 79.38 Lab Results Lab Result Date: 08/27/2018 Lab Result Time: 0:00 Biochemistry Name Units Result Min Max BUN mg/dl 15 --(--*-)-- 7 18 Creatinine mg/dl 1.3 --(---*)-- 0.6 1.3 CBC Name Units Result Min Max Hemoglobin g/dl 8.1 *-(----)-- 13.5 17.5 Procedure Procedure Types Cath Procedure Diagnostic Procedure Sedation Charges Moderate Sedation up to 15 minutes Moderate Sedation up to 30 minutes PCI Procedure Coronary Stent Coronary Stent Initial Procedure Description Procedure Date Procedure Date: 08/30/2018 Procedure Start Time: 10:27 Procedure End Time: 10:46 Procedure Staff Name Function Doreen Kumari RT Scrub Stoney Grider MD Performing Physician Jessica Baxter RT Monitor Eliot Stahl RN Nurse Alphonso Small RN Outpatient Physical Therapist Procedure Data Cath Procedure Fluoroscopy Diagnostic fluoroscopy Total fluoroscopy Time: 5.5 time: 5.5 min min Diagnostic fluoroscopy Total fluoroscopy dose: 525 dose: 525 mGy mGy Contrast Material Contrast Material Type Amount (ml) Isovue 300 56 Entry Location Entry Primary Successful Side Size Upsize Upsize Entry Closure Succes sful Closure Location (Fr) 1 (Fr) 2 (Fr) Remarks Device Remarks Femoral Right 6 Fr 7 Fr Exoseal artery Short Short Estimated blood loss: 10 ml Procedure Complications No complications Procedure Medications Medication Administration Route Dosage 0.9% NaCl I.V. 100 ml/hr Oxygen etCO2 Nasal cannula 2 l/min Heparin Flush Bag added to field 2 bags (1000units/500ml NS) Lidocaine 2% added to field 20 Versed I.V. 2 mg Fentanyl I.V. 100 mcg Versed I.V. 2 mg Fentanyl I.V. 100 mcg Versed I.V. 1 mg Heparin Bolus I.V. 4000 units Versed I.V. 1 mg Hemodynamics Rest BSA: 1.76 (m2) HGB: 8.1 (g/dl) O2 Consumption: Estimated: 217.46 (ml/min) O2 Con sumption indexed: Estimated:123.56 (ml/min/m) Heart Rate: 90 (bpm) Snapshots Pre Cath Intra NCS Post Cath Vital Signs Time Heart Resp SPO2 etCO2 NIBP Rhythm Pain Sedation Rate (ipm) (%) (mmHg) (mmHg) Status Level (bpm) 9:37:55 79 14 95 32.2 86/58(69) NSR 0 (11) 10(A) , No pain 9:41:51 83 18 96 0 81/53(67) NSR 0 (11) 10(A) , No pain 9:45:46 79 27 96 0 80/54(66) NSR 0 (11) 10(A) , No pain 9:49:42 76 13 97 31.5 94/56(71) NSR 0 (11) 10(A) , No pain 9:53:43 77 12 97 36 88/51(66) NSR 0 (11) 10(A) , No pain 9:58:53 82 21 97 18.7 88/59(78) NSR 0 (11) 10(A) , No pain 10:02:51 80 19 97 29.2 86/60(70) NSR 0 (11) 10(A) , No pain 10:06:54 77 19 96 24.7 94/60(75) NSR 0 (11) 10(A) , No pain 10:10:54 83 21 96 30 90/58(75) NSR 0 (11) 10(A) , No pain 10:14:56 79 15 97 24 80/48(69) NSR 0 (11) 10(A) , No pain 10:18:53 80 13 98 14.2 86/54(65) NSR 0 (11) 10(A) , No pain 10:22:55 81 11 96 18.7 82/44(65) NSR 0 (11) 10(A) , No pain 10:26:50 94 10 95 20.2 88/58(69) NSR 0 (11) 9(A) , No pain 10:30:48 87 12 95 35.2 94/60(76) NSR 0 (11) 9(A) , No pain 10:34:49 83 13 98 0 88/51(73) NSR 0 (11) 10(A) , No pain 10:38:47 81 15 97 0 80/57(71) NSR 0 (11) 9(A) , No pain 10:42:45 82 15 98 0 87/53(66) NSR 0 (11) 9(A) , No pain Medications Time Medication Route Dose Verified Delivered Reason Notes Effectiveness by by 9:36:14 0.9% NaCl I.V. 100 Eliot Eliot Per physician ml/hr Favio Stahl RN RN 9:36:24 Oxygen etCO2 2 Eliot Eliot Per physician Nasal l/min Favio Stahl cannula RN RN 9:36:36 Heparin Flush added 2 Eliot Eliot used for Bag to bags Favio Stahl procedure (1000units/500ml field DUBOIS RN NS) 9:36:46 Lidocaine 2% added 20ml Eliot Eliot for local to vial Favio Stahl anesthetic field DUBOIS RN 10:11:45 Versed I.V. 2 mg Eliot Eliot for sedation Lorigan Lorigan RN RN 10:11:55 Fentanyl I.V. 100 Eliot Eliot for sedation mcg Favio Stahl RN RN 10:17:24 Versed I.V. 2 mg Eliot Eliot for sedation Favio Stahl RN RN 10:17:31 Fentanyl I.V. 100 Eliot Eliot for sedation mcg Favio Stahl RN RN 10:28:33 Versed I.V. 1 mg Eliot Eliot for sedation Favio Stahl RN RN 10:29:20 Heparin Bolus I.V. 4000 Eliot Eliot for units Favio Stahl anticoagulation RN RN 10:38:00 Versed I.V. 1 mg Eliot Eliot for sedation Favio Stahl RN fire protection specialist Log Time Note 9:32:13 Patient Height : 60 inches 9:32:19 Patient Weight : 175 lbs 9:34:19 Diagnostic Cath status Elective 9:34:25 Eliot Stahl RN sent for patient. Start room use. 9:34:27 Time tracking: Regular hours (M-F 7:00 - 5:00) 9:34:33 Plan of Care:Hemodynamics will remain stable., Cardiac rhythm will remain stable., Comfort level will be maintained., Respiratory function will remain adequate., Patient/ family verbilizes understanding of procedure., Procedure tolerated without complication., Recovers from procedure without complications.. 9:34:43 Patient received from Pre/Post Procedure Room to CCL 2 Alert and oriented. Tansferred to table in Supine position. 9:34:44 Warm blankets applied, and yumiko hugger turned on for patient comfort. 9:34:45 Correct patient and procedure confirmed by team. 9:34:47 Signed procedure consent form obtained from patient. 9:36:14 0.9% NaCl 100 ml/hr I.V. was administered by Eliot Stahl RN; Per physician; 9:36:24 Oxygen 2 l/min etCO2 Nasal cannula was administered by Eliot Stahl RN; Per physician; 9:36:36 Heparin Flush Bag (1000units/500ml NS) 2 bags added to field was administered by Eliot Stahl RN; used for procedure; 9:36:46 Lidocaine 2% 20ml vial added to field was administered by Eliot Stahl RN; for local anesthetic; 9:36:50 Vital chart was started 10:01:56 ECG and BP/O2 sat monitors applied to patient. 10:01:57 Baseline sample Acquired. 10:02:02 Rhythm: sinus rhythm 10:02:04 Full Disclosure recording started 10:02:42 H&P Date Dictated: 08/29/2018 Within 30 days and on chart.. 10:02:43 Pre-procedure instructions explained to patient. 10:02:46 Family in waiting room. 10:02:48 Patient NPO since Midnight. 10:03:49 Patient allergic to Other allergyDilaudid, Morphine, Plavix, Bupropion 10:03:52 Is the patient allergic to Iodine/contrast media? No. 10:03:57 Was the patient premedicated? Yes 10:04:10 Is patient on blood thinner?Yes 10:04:13 ACC The patient was administered the following blood thiners within the last 24 hours: ACCEffient 10:04:20 Patient diabetic? Yes. 10:04:25 Snore? Yes 10:04:29 Sleep apnea? No 10:04:30 Deviated septum? No 10:04:31 Opens mouth fully? Yes 10:04:32 Sticks out tongue? Yes 10:04:39 Dentures? Yes in tight 10:04:50 Patient pain scale 0/10 ?. 10:04:56 IV patent on arrival in left hand with 0.9% NaCl at [facility]. 10:05:05 Lab results completed and on chart. 10:05:15 Right groin area was prepped with chlora-prep and draped in sterile fashion 10:05:18 Sharps counted by scrub and verified by R.N. 10:05:21 Physician paged 10:05:28 Use device set Femoral Dx 10:05:29 ACIST Syringe (79214) opened to sterile field. 10:05:30 Bag Decanter (2001S) opened to sterile field. 10:05:32 Medline Cath Pack ([id number]) opened to sterile field. 10:05:33 DIAGNOSTIC WIRE .035 260cm J wire (211076) opened to sterile field. 10:05:35 ACIST Manifold (23297) opened to sterile field. 10:05:35 ACIST Hand Control (26838) opened to sterile field. 10:05:39 Tegaderm 4 x 4 (1626W) opened to sterile field. 10:06:02 INFLATOR Jesu Levy (ZU4963) opened to sterile field. 10:06:02 SHEATH 6FR Aurora (HWC987) opened to sterile field. 10:06:03 CHOICE PT Extra Support 182cm wire ([id number]) opened to sterile field. 10:: Physician arrived 10:: Final Timeout: patient, procedure, and site verified with staff and physician. All members of the team are in agreement. :: --------ALL STOP TIME OUT------ 10:: Right groin site verified by team. 10::34 Physical assessment completed. ASA score P 2 - A patient with mild systemic disease as per Stoney Grider MD. 10::39 Sedation plan: IV Moderate Sedation Medication:Versed, Fentanyl 10:11:45 Versed 2 mg I.V. was administered by Eliot Stahl RN; for sedation; 10:11:55 Fentanyl 100 mcg I.V. was administered by Eliot Stahl RN; for sedation; 10:12:49 Zero performed for pressure channel P1 10:17:24 Versed 2 mg I.V. was administered by Eliot Stahl RN; for sedation; 10:17:31 Fentanyl 100 mcg I.V. was administered by Eliot Stahl RN; for sedation; 10:27:43 Procedure started. 10:27:52 Local anesthetic to right femoral artery with Lidocaine 2% by Stoney Grider MD.INITIAL ACCESS ONLY 10:28:06 A 6 Fr Short sheath was inserted into the Right Femoral artery 10:28:33 GUIDE 6FR AR 2.0 catheter ([id number]) opened to sterile field. 10:28:33 Versed 1 mg I.V. was administered by Eliot Stahl RN; for sedation; 10:28:43 6 Fr AR2 guide catheter was inserted over the wire 10:28:56 choice pt ex wire advanced. 10:29:20 Heparin Bolus 4000 units I.V. was administered by Eliot Stahl RN; for anticoagulation; 10:29:44 Wire advanced across lesion. 10:32:11 SHEATH 7FR Aurora (DTO720) opened to sterile field. 10:32:23 GUIDE 7FR AR 2.0 catheter ([id number]) opened to sterile field. 10:32:24 CHOICE PT Extra Support 182cm wire ([id number]) opened to sterile field. 10:32:25 CHOICE PT Extra Support 182cm wire ([id number]) opened to sterile field. 10:32:48 Sheath upsized to a 7 Fr Short. 10:33:41 GUIDE 7FR AR 2.0 SH catheter ([id number]) opened to sterile field. 10:34:20 choice pt ex wire advanced. 10:34:48 bj wire advanced (pt Ex support) 10:37:25 Bj wire removed 10:38:00 Versed 1 mg I.V. was administered by Eliot Stahl RN; for sedation; 10:38:02 Inflate balloon Inflation number: 1 A EUPHORA 2.5 x 30 Balloon ([id number]) was prepped and advanced across the Dist RCA1, then inflated to 19 MARGARITA for 0:05 (min:sec). 10:38:55 Balloon removed over the wire. 10:41:08 Place stent Inflation Number: 1 A INTEGRITY RX 2.5 x 26 stent ([id number]) was prepped and advanced across the Mid RCA. The stent was deployed at 21 MARGARITA for 0:09 (min:sec). 10:41:55 Stent catheter was removed intact over wire. 10:42:47 The INTEGRITY RX 2.25 x 12 stent ([id number]) was advanced then removed because of failure to cross lesion 10:42:59 Guide catheter removed. 10:43:20 EXOSEAL 7Fr (EX700) opened to sterile field. 10:43:39 Sheath removed intact; hemostasis achieved with Exoseal to the Right Femoral artery. 10:43:47 Procedure ended.(Physican Out) 10:44:04 Fluoroscopy time 05.50 minutes. 10:44:17 Fluoroscopy dose: 525 mGy 10:44:17 Flurop Dose total: 525 10:44:22 Contrast amount:Isovue 300 56ml. 10:44:31 Insertion/operative site no bleeding no hematoma. 10:44:41 Post Procedure Pulses reassessed and unchanged 10:44:46 Post procedure rhythm: unchanged. 10:44:49 Estimated blood loss: 10 ml 10:44:50 Post procedure instruction explained to patient.Patient verbalizes understanding. 10:44:51 Patient needs reinforcement of post procedure teaching. 10:45:11 Procedure type changed to Cath procedure, Diagnostic procedure, Sedation Charges, Moderate Sedation up to 15 minutes, Moderate Sedation up to 30 minutes, PCI procedure, Coronary Stent, Coronary Stent Initial 10:45:13 Procedure and supply charges have been captured, reviewed, submitted and are correct. 10:45:35 Procedure Complication : No complications 10:45:38 Vital chart was stopped 10:45:39 See physician's report for complete and final results. 10:45:49 Report given to Pre/Post Procedure Room. 10:45:58 Patient transfered to Pre/Post Procedure Room with Stretcher. 10:46:00 Full Disclosure recording stopped 10:46:00 Procedure ended. 10:46:03 End room use (Document Last) Intervention Summary Intervention Notes Time ActionType Lesion and Equipment Action# Pressure Duration Attributes Used 10:38:02 Inflate Dist RCA1 EUPHORA 2.5 1 19 00:05 balloon x 30 Balloon ([id number]) 10:41:08 Place stent Mid RCA INTEGRITY RX 1 21 00:09 2.5 x 26 stent ([id number]) 10:42:47 Discard INTEGRITY RX Stent 2.25 x 12 stent ([id number]) Device Usage Item Name Manufacture Quantity Catalog Number Hospital Part Current Mini mal Lot# / Charge Number Stock Stock Serial# Code ACIST Acist 1 68583 375162 873885 248177 20 Syringe Medical (10305) Systems Inc Bag Decanter Microtek 1 2001S 216759 20560 406194 5 (2001S) Medical Inc. Medline Cath Medline 1 [id number] 955992 95437 849719 5 Pack ([id number]) DIAGNOSTIC St Remigio 1 037752 844324 821301 140756 30 WIRE .035 260cm J wire (353425) ACIST Hand Acist 1 34833 220072 353072 726732 5 Control Medical (07291) Systems Inc ACIST Acist 1 58217 110409 624097 576417 5 Manifold Medical (82317) Systems Inc Tegaderm 4 x 3M 1 1626W 386846 148803 279871 5 4 (1626W) SHEATH 6FR Terumo 1 ELU523 674481 452218 797330 40 Aurora (LVU159) INFLATOR Merit 1 YB4770 026696 507553 406649 15 Merit Medical BasixCompak (WO0201) CHOICE PT [place] 3 [id number] 324324 069193 115791 5 Extra Scientific Support 182cm wire ([id number]) GUIDE 6FR AR Medtronic 1 [id number] 181344 52913 324849 1 2.0 catheter (PL0FF76) SHEATH 7FR Terumo 1 GZY162 634861 681761 008121 5 Aurora (ELZ267) GUIDE 7FR AR Medtronic 1 EL7IZ72 982570 837560 322487 0 2.0 catheter ([id number]) GUIDE 7FR AR Medtronic 1 [id number] 135098 642486 643415 0 2.0 SH catheter ([id number]) EUPHORA 2.5 Medtronic 1 [id number] 470064 493714 054997 5 [id number] x 30 Balloon ([id number]) INTEGRITY RX Medtronic 1 [id number] 796712 790946 180234 5 [id number] 2.5 x 26 stent ([id number]) INTEGRITY RX Medtronic 1 [id number] 612724 917835 788133 5 [id number] 2.25 x 12 stent ([id number]) EXOSEAL 7Fr Cardinal 1 EX700 256897 629563 423918 5 (EX700) Health Signature Audit [place] Stage Time Signature Unsigned Intra-Procedure 08/30/2018 Alphonso Small 10:49:42 AM RN Signatures Monitor : Jessica Baxter Signature : RT Date : Time : [facility] [address] [place] [address]
[~2018-08-30 08:19] MED LIST changes: +NORCO 10-325 TA1 TAB PO
[2018-08-30 08:46] VITALS: BP 110/64; Ht 177.8 cm; Wt 79.5 kg
[2018-08-30 08:59] LABS: BASOPHILS 0.2 % (0-2); EOSINOPHILS 1.1 % (0-7); HEMATOCRIT 27.9 % (42.0-54.0); HEMOGLOBIN 8.4 g/dL (13.5-17.5); LYMPHOCYTES 28.9 % (15-50); MCH 22.5 pg (26.0-34.0); MCHC 30.1 g/dL (31.0-37.0); MCV 74.8 fL (80.0-100.0); MEAN PLATELET VOLUME 9.1 fL (7.4-10.4); MONOCYTES 8.9 % (2-11); NEUTROPHILS 60.9 % (40-80); PLATELET COUNT 220 10x3/uL (130-400); RBC 3.73 10x6/uL (4.20-6.10); RDW 18.5 % (11.5-14.5); WBC 4.4 10x3/uL (4.8-10.8)
[2018-08-30 09:03] LABS: ANION GAP 13.9 mmol/L (8-16); CALCIUM 8.4 mg/dL (8.5-10.1); CARBON DIOXIDE 23.8 mmol/L (21.0-32.0); CREATININE - SERUM 1.2 mg/dL (0.6-1.3); POTASSIUM - SERUM 3.7 mmol/L (3.5-5.1)
--- NOTE | 2018-08-30 11:13 | NUR ---
RECIEVED TO ROOM VIA STRETCHER FROM ORE DRESSING ENGINEER WITH 7 FR EXOSEAL R/GROIN CDI NO BLEEDING OR HEMATOMA NOTED. INSTRUCTED PATIENT TO KEEP HEAD FLAT ON PILLOW WITH RLE STRAIGHT.
--- NOTE | 2018-08-30 11:28 | NUR ---
BP 84/51 OPENED FLUIDS AND PLACED PATIENT IN [place]. 7 FR EXOSEAL R/GROIN REMAINS CDI WITH NO BLEEDING OR HEMATOMA NOTED. PATIENT IS ALERT AND ORIENTED WITH PAIN DENIED
--- NOTE | 2018-08-30 11:54 | NUR ---
BP 98/56 WITH 7 FR EXOSEAL R/GROIN CDI NO BLEEDING OR HEMATOMA NOTED. AREA IS SOFT TO TOUCH. PATIENT COMPLAINS OF HEARTBURN WITH ORDERS OBTAINED FOR GI COCKTAIL
--- NOTE | 2018-08-30 12:04 | NUR ---
DR ALVA AT BEDSIDE NO NEW ORDERS.
--- NOTE | 2018-08-30 12:42 | NUR ---
7 FR EXOSEAL R/GROIN CDI WITH NO COMPLAINTS AT THIS TIME HEART BURN IS DENIED. HR 64 BP 89/52 CALL LIGHT IN REACH
--- NOTE | 2018-08-30 13:32 | NUR ---
RESTING QUIETLY WITH EYES CLOSED.7 FR EXOSEAL R/GROIN CDI
--- NOTE | 2018-08-30 14:23 | NUR ---
7 FR EXOSEAL R/GROIN CDI WITH NO BLEEDING OR HEMATOMA NOTED. PATIENT REPOSITIONED TO SITTING WITH HOB UP 30 FOR COMFORT.
--- NOTE | 2018-08-30 14:45 | NUR ---
PIV REMOVED WITH DRESSING APPLIED. 7 FR EXOSEAL R/GROIN REMAINS CDI NO BLEEDING NOTED.
--- NOTE | 2018-08-30 14:53 | NUR ---
VERBAL AND WRITTEN DISCHARGE GONE OVER WITH PATIENT AND . PATIENT LEFT VIA WC TO PARKING FOR RIDE HOME NO DISTRESS NOTED
--- NOTE | 2018-08-31 18:15 | OP ---
PATIENT NAME: SONALI PEREZ MEDICAL RECORD: [id number] :50 LOCATION:D.CAT ADMISSION DATE: SURGEON: NOEMY ALVA MD DATE OF OPERATION: 08/30/2018 DATE OF SERVICE: 08/30/2018 PROCEDURES: 1. PTCA stent RCA. 2. Selective coronary angiography. INDICATION: Angina and coronary artery disease. PROCEDURE IN DETAIL: After informed consent was obtained and after a detailed explanation of risks, benefits as well as alternative therapies, the patient elected to proceed with angiogram and angioplasty. The right femoral area was prepped and draped in normal sterile fashion. Right femoral artery was cannulated via modified Seldinger technique with placement of 7-Singaporean sheath. All catheters exchanged through this sheath. FINDINGS: The right coronary has significant disease distally in the PLV. Our initial plan was to stent this area, there was at least 70% stenosis throughout the mid RCA, it was very heavily calcified. The 2.25 x 12 Integrity stent would not cross the mid-section. We then ballooned the mid-section and stented this with a 2.5 x 26-mm Integrity stent. This had 0% residual stenosis and we still could not get the 2.25 stent to cross into the distal vessel, this will have to be treated medically. TRANSINT:[id number] Voice Confirmation ID: [id number] DOCUMENT ID: [id number] NOEMY ALVA MD at 1815 CC: [id number] DICTATION DATE: 08/30/18 1051 COTTON ACREAGE MEASURER: 08/30/18 1152 DEP CLI 08/30/18 [place] [id number] [place] [id number]
--- NOTE | 2018-08-31 18:15 | HP ---
PATIENT: SONALI PEREZ MEDICAL RECORD: [id number] ACCOUNT: [id number] LOCATION:[facility] : 50 ADMISSION DATE: 08/30/18 PCP: ELI PICKENS DO HISTORY AND PHYSICAL EXAMINATION ADMITTING DIAGNOSES: 1. Angina. 2. Coronary artery disease. 3. Recent percutaneous transluminal coronary angioplasty stent of the left circumflex with concomitant disease right coronary artery. 4. Hyperlipidemia. HISTORY OF PRESENT ILLNESS: Mr. Perez presents with unstable angina, found to have 2-vessel disease of the left circumflex and RCA, underwent successful PTCA stent of the left circumflex, now brought back for PTCA stent of the RCA. REVIEW OF SYSTEMS: The patient reports easy bruising but reports no swollen glands. The patient reports no fever, no night sweats, no significant weight gain, no significant weight loss. No significant exercise tolerance. The patient reports no dry eyes, no irritation, no vision change. Patient reports no difficulty hearing and no ear pain. Patient reports no frequent nose bleeds or nose and sinus problems. Patient reports on arm pain on exertion. No shortness of breath while lying down. No history of heart murmur. Patient reports no cough, no wheezing or coughing up blood. Patient reports no abdominal pain, no vomiting. Normal appetite. No diarrhea and not vomiting blood. No nausea and no constipation. Patient reports no incontinence. No difficulty urinating. No hematuria. No increased frequency. Patient reports no muscle aches. No weakness, no arthralgias, no back pain. No swelling of the extremities. Patient reports no abnormal mole, no jaundice, no rashes. Reports no loss of consciousness. No weakness and no numbness. No seizures, dizziness, or headaches. The patient reports no depression, no sleep disturbance, feeling safe in a relationship and no alcohol abuse. Patient reports on fatigue. Reports no runny nose or sinus pressure. No itching, no hives, and no frequent sneezing. PHYSICAL EXAMINATION: GENERAL APPEARANCE: Well-nourished, well-developed, appears stated age. Level of distress, comfortable. PSYCHIATRIC: Mental status, alert, normal affect. Orientation, oriented to time, place and person. EYES: Lids and conjunctiva, noninjected. No discharge, no pallor. ENT: Lips, teeth, gums, normal dentition. Oropharynx, no cyanosis, no pallor. NECK: Carotid arteries, bilateral normal upstroke, no bruits, no thrills. JUGULAR VEINS: No jugular venous pressure or distention. CERVICAL LYMPH NODES: Nontender, nonenlarged. THYROID: Not enlarged. Nontender. No nodules. LUNGS: Respiratory effort, unlabored. CHEST: Normal curvature. No thoracic deformity. No chest wall tenderness. Percussion, resonant. Auscultation, clear. No wheezes, no rales, no rhonchi. CARDIOVASCULAR: Precordial exam, nondisplaced. No heaves or pericardial thrills. Rate and rhythm, regular. Heart sounds, normal S1, normal S2. No S3, no gallop, no rub. Systolic murmur, not heard. Diastolic murmur, not heard. EXTREMITIES: No cyanosis, no edema. Peripheral pulses, full and equal in all extremities, except as noted. No bruits appreciated. ABDOMEN: Soft, nondistended. Normal aorta. No bruit. Nontender. No masses. HISTORY AND PHYSICAL [id number] SONALI PEREZ Liver, nontender, no hepatomegaly. Spleen, nontender, no splenomegaly. MUSCULOSKELETAL: No joint tenderness. No joint swelling. No erythema. NEUROLOGICAL: Normal gait, normal strength, normal tone. SKIN: Warm and dry. OVERALL IMPRESSION: Anginal symptomatology with significant disease of the right coronary artery. We will proceed with transcatheter revascularization of the right coronary artery. TRANSINT:[id number] Voice Confirmation ID: [id number] DOCUMENT ID: [id number] NOEMY ALVA MD at 1815 CC: [id number] DICTATION DATE: 08/30/18 1017 RECREATIONAL VEHICLE RESORT MANAGER: 08/30/18 1026 [facility] CLI 08/30/18 [id number] [place] [address]
== END 2018-08-30 14:58 | disposition home or self-care (01) ==
LOC: D.CATH 08:19
PROVIDERS: Internal Medicine Interventional Cardiology
DX: I25.10 Atherosclerotic heart disease of native coronary artery without angina pectoris (principal)